=== PATIENT | male | born 1955 | race Two or more races ===

== ENCOUNTER → 2018-09-02 06:20 | Outpatient (CLI) | payer MEDICARE, MEDICAID, SELFPAY ==
[2018-09-02 09:17] LABS: Basophils # 0.2 K/mm3 (0-0.2); Basophils % 1.4 % (0.1-2.0); Eosinophils # 0.3 K/mm3 (0.0-0.4); Eosinophils % 2.5 % (0.1-12.0); Hematocrit 51.9 % (42.0-52.0); Hemoglobin 16.5 g/dL (14.1-18.0); Lymphocytes # 2.2 K/mm3 (0.7-4.5); Lymphocytes % 18.1 % (10-50); Mean Corpuscular HGB Conc 31.8 g/dL (31.8-35.4); Mean Corpuscular Hemoglobin 25.5 pg (27.0-31.2); Mean Platelet Volume 7.4 fl (7.4-10.4); Monocytes # 1.2 K/mm3 (0.1-1.0); Monocytes % 9.9 % (1.7-9.3); Neutrophils # 8.2 K/mm3 (1.8-7.8); Neutrophils % 68.1 % (37.0-80.0); Platelet Count 439 K/mm3 (142-424); Red Blood Count 6.48 M/mm3 (4.60-6.20); Red Cell Distribution Width 16.1 % (11.5-17.5)
[2018-09-02 10:13] LABS: Anion Gap 15.2 mEq/L (5-15); Blood Urea Nitrogen 25 mg/dL (7-18); Calcium 9.1 mg/dL (8.5-10.1); Carbon Dioxide 29 mmol/L (21.0-32.0); Chloride 95 mmol/L (98-107); Creatinine,Serum 1.18 mg/dL (0.70-1.30); Estimated Glomerular Filt Rate 62 ml/min (>60); GFR (African American) 75 ML/MIN (>60); Glucose 164 mg/dL (74-106); Potassium 5.2 mmoL/L (3.5-5.1); Sodium 134 mmol/L (136-145)
== END ==
PROVIDERS: Nurse Practitioner Family; PCP Family Medicine; Visit Provider Internal Medicine
DX: I11.0 Hypertensive heart disease with heart failure (principal); I25.10 Atherosclerotic heart disease of native coronary artery without angina pectoris; R60.0 Localized edema
CPT/HCPCS: 36415; 80048; 85025

== ENCOUNTER → 2020-11-23 10:29 | Outpatient (CLI) | payer MEDICARE, MEDICAID, SELFPAY ==
--- NOTE | 2020-11-23 | CA_ITS ---
APPROVED REPORT Exam: Pharmacologic Technologist: Valeria Uribe, Stress Nurse: VENTRICULAR PACED RHYTHM WITH UNDERLYING AFIB Ht: 5 ft 11 in Wt: 256 lbs BSA: 2.34 m2 HR: 60 bpm BP: 111/57 mmHg Medical History Medical History: HTN, Hyperlipidemia, Diabetic Medications: Aspirin,,,,, Gabapentin,,,,, Xanax,,,,, Carvedilol,,,,, Duoneb,,,,, PERCOCET,,,,, XaRELTO,,,,, Albuterol,,,,, TAMSALOSIN,,,,, Digoxin,,,,, Ibuprofen,,,,, Prednisone,,,,, Allergies: PENICILLIN Cardiac Risk Factors: HTN, Hyperlipidemia, Diabetes Stress Test Details Test: LEXISCAN HR Resting HR: 63 bpm Max Heart Rate (APMHR): 155.162722 bpm Max HR Achieved: 102 bpm Target HR (85% APMHR): 131.659708 bpm % of APMHR: 65.81 Recovery HR: 68 bpm BP Resting BP: 111/57 mmHg Max BP: 126/58 mmHg Recovery BP: 118.0/52.0 mmHg ECG Resting ECG: VENTRICULAR PACED RHYTHM WITH UNDERLYING AFIB Clinical Exercise duration: 04:01 min Highest Stage Achieved: Exercise capacity: 1.0 METs Stress ECG Conclusion PT HAD SPA, MALAISE, AND MILD STOMACH DISCOMFORT. NO CP. OCCASIONAL V ECTOPIC BEAT VS ABBERANTLY CONDUCTED BEAT. NO SIGNIFICANT ST CHANGES. UNREMARKABLE LEXISCAN STRESS. MYOVIEW IMAGES REPORTED SEPERATELY. Test Summary REST 07:01 . . 63 . 111/ 57 . . Stage 1 . . . . . . . Cardiolite injected Stage 1 01:00 . . 77 . . . . Stage 2 01:00 . . 66 . . . . Stage 3 01:00 . . 77 . 122/ 50 . . Stage 4 01:00 . . 63 . 126/ 58 . . Stage 4 01:01 . . 63 . 126/ 58 . Stop exercise at 04:01 RECOVERY 01:00 . . 71 . 107/ 51 . . RECOVERY 02:00 . . 68 . 118/ 52 . . RECOVERY 03:00 . . 71 . 110/ 52 . . RECOVERY 03:17 . . 70 . 110/ 52 . . Electronically signed by : Ruddy Potter, 11/24/2020 10:38:44
--- NOTE | 2020-11-23 10:29 | NM_ITS ---
APPROVED REPORT Exam: Nuclear Stress Test Indication: CAD, 2 STENTS, HTN, D.M., HYPERLIPIDEMIA, TOB USE, C.P., SOB, FATIGUE, SLEEP APNEA Patient Location: Outpatient Stress Tech: Tayler Encarnacion [place] Tech:Suzie Medrano, ARRT, RT (R)(N) Ht: 5 ft 10 in Wt: 256 lbs HR: 60 bpm BP: 111/57 mmHg BSA: 2.32 m2 BMI: 36.7 History: CAD, 2 STENTS, HTN, D.M., HYPERLIPIDEMIA, TOB USE, C.P., SOB, FATIGUE, SLEEP APNEA Procedure: Patient received a 0.4 mg of intravenous Lexiscan, resting heart rate 60 bpm, resting blood pressure 111/57 mmHg, with Lexiscan maximum heart rate achived was 99 bpm which is % of the maximum predicted heart rate and blood pressure was 122/50 mmHg. With Lexiscan, patient denied any complaint of chest pain. SOA, MALAISE Electrocardiogram Resting electrocardiogram showed sinus resting electrocardiogram showed underlying rhythm is A. fib intermittently paced ventricular beats were also seen. With Lexiscan there is less than 1.[address] segment depression noted from the baseline EKG. The EKG portion of the Lexiscan is nondiagnostic Cardiac Stress and Resting SPECT Images: Cardiac Stress and Resting SPECT images were obtained using technetium 99m Myoview 32.5 mCi stress and 10.53 mCi at rest. Gated SPECT analysis of segmental wall motion and calculation of ejection fraction also done. Prone images were also obtained. Cardiac stress and resting SPECT images show a fixed defect involving the inferior wall consistent with nontransmural myocardial scarring, without significant giovany-infarct ischemia, computer ejection fraction has 43% with moderate inferior wall hypokinesis, but ventricle is mildly enlarged with normal contractility. Conclusion: 1. The EKG portion of the Lexiscan is nondiagnostic. 2. Scintigraphic evidence of nontransmural myocardial scarring involving the inferior wall without significant giovany-infarct ischemia, computer ejection fraction 43% with segmental wall motion abnormality described above, right ventricle is mildly enlarged with normal contractility 3. Abnormal Lexiscan Myoview study. Electronically signed by : Ruddy Potter, 11/24/2020 10:49:36
== END ==
PROVIDERS: PCP Family Medicine; Visit Provider Nurse Practitioner Family
DX: R06.02 Shortness of breath; R07.89 Other chest pain; I25.10 Atherosclerotic heart disease of native coronary artery without angina pectoris; R94.31 Abnormal electrocardiogram [ECG] [EKG]; I11.0 Hypertensive heart disease with heart failure; E78.49 Other hyperlipidemia; N18.2 Chronic kidney disease, stage 2 (mild); G47.33 Obstructive sleep apnea (adult) (pediatric); Z95.0 Presence of cardiac pacemaker; Z72.0 Tobacco use
CPT/HCPCS: 78452; 93017; 93306; A9502; J2785

== ENCOUNTER → 2020-11-30 09:16 | Outpatient (CLI) | payer MEDICARE, MEDICAID, SELFPAY ==
--- NOTE | 2020-11-30 09:35 | CA_ITS ---
APPROVED REPORT EXAM: Comprehensive 2D, Doppler, and color-flow Echocardiogram Call Center Rn: Rosa Parry RVT Ht: 5 ft 11 in Wt: 256lbs BSA: 2.34 BP: 110/68 mmHg Indications: cp,pacer,a-fib,kinjal,cad,smoker,obesity,htn,hld 2D Dimensions LVOT 2.27 cm (M/F) 1.5-2.5 LA Volume 62.00 mL LA Volume Index 26.49 mL/m2 (M/F) 16-34 M-Mode Dimensions LA Diam 2.74 cm (1.9-4.0) LVDd 7.58 cm (3.5-5.7) Ao Diam 4.74 cm (2.0-3.7) LVDs 5.46 cm (3.5-5.7) IVSd 0.59 cm (0.6-1.1) PWd 1.14 cm (0.6-1.1) EF (Teich) 52.50% FS 28.00% EDV (Teich) 305.50 mL ESV (Teich) 145.00 mL LV Diastology MED E' 9.50 (< 7 cm/sec) LAT E' 16.50 (<10 cm/sec) Aortic Valve AO Peak GR. 5.10 mmHg Pulmonary Valve PV Peak Velocity 72.00 (50-150 cm/s) Tricuspid Valve TR P. Velocity 308.00 cm/s RAP Estimate 10.00 mmHg RVSP 47.80 mmHg Left Ventricle Left atrium is mildly enlarged, left ventricle is normal size, mild concentric left ventricular hypertrophy, visually estimated ejection fraction 50% with no regional wall motion abnormality, endocardial surfaces are very poorly visualized. Diastolic parameters are inconclusive. Right Ventricle Right atrium and right ventricle are mildly enlarged with normal contractility. Aortic Valve Aortic valve is minimally thickened and fibrosed, there is no aortic stenosis or aortic insufficiency. Mitral Valve Mitral valve is minimally thickened, there is mild mitral regurgitation. Tricuspid Valve Tricuspid grossly normal, there is mild tricuspid regurgitation, calculated right ventricular systolic pressure is 47 mmHg. Pulmonic Valve Pulmonic valve is poorly visualized. Great Vessels Aortic root is normal size. Pericardium No significant pericardial effusion noted. Conclusion 1. Technically difficult study because of the patient factors and poor acoustic windows. 2. Mild biatrial [place], normal left ventricular size, mild concentric left ventricular hypertrophy, visually estimated ejection fraction 50% with no regional wall motion abnormality, diastolic parameters are inconclusive. 3. Mildly enlarged right ventricle with normal contractility. 4. Mild mitral and tricuspid regurgitation, calculated right ventricular systolic pressure is 47 mmHg. 5. No significant pericardial effusion noted. Electronically signed by : Ruddy Potter, 12/01/2020 15:52:36
== END ==
PROVIDERS: PCP Family Medicine; Visit Provider Nurse Practitioner Family
DX: G47.33 Obstructive sleep apnea (adult) (pediatric); I11.0 Hypertensive heart disease with heart failure; N18.2 Chronic kidney disease, stage 2 (mild); Z95.0 Presence of cardiac pacemaker; R06.02 Shortness of breath; R07.89 Other chest pain; E78.49 Other hyperlipidemia; I48.20 Chronic atrial fibrillation, unspecified
CPT/HCPCS: 93306

== ENCOUNTER 2021-05-24 07:54 | Day surgery (SDC) | payer MEDICARE, MEDICAID, SELFPAY ==
[2021-05-24] VITALS (17 sets, daily range): BP systolic 107–164; BP diastolic 45–101; PULSE 85–103; RESP 18–20; O2SAT 93–99; BMI 35.6
--- NOTE | 2021-05-24 07:11 | IR_ITS ---
APPROVED REPORT Patient Location: Outpatient Lamination Spinner: JL Zuleta RT (R) PROCEDURES Catheter placement in the abdominal aorta Abdominal aortography Repositioning of the catheter in the abdominal Bilateral iliofemoral runoff INDICATION Abnormal EKTA, [place] claudication class IV-V Informed consent was obtained prior to the procedure. COMPLICATIONS NONE Estimated Blood Loss: LESS THAN 10 ML TECHNIQUE 1% lidocaine used to anesthetize the left femoral groin. The left femoral artery was accessed via the Seldinger technique. Using fluoroscopic guidance the JR4 catheter was advanced from the aorta into the right common iliac artery and then advanced into the right superficial femoral artery. There unilateral selective angiography with runoff to the foot was performed. Following this the catheter was pulled back into the right common iliac artery and angiography was performed. At the end of the procedure the patient was transferred to the postop holding area in stable condition for sheath removal. ANGIOGRAPHIC RESULTS Infrarenal abdominal aorta is normal Bilateral renal arteries is singular normal Bilateral common and internal iliac arteries are normal Bilateral external iliac arteries are normal Bilateral common femoral arteries are normal Bilateral profunda femoris arteries are normal Bilateral superficial femoral arteries have 40% nonflow limiting stenoses Bilateral popliteal arteries are widely patent with mild atheromatous plaque There is three-vessel runoff below the knees bilaterally IMPRESSION Peripheral artery disease as described above none of which is contributing to the lower extremity ulcer which almost certainly stems from venous insufficiency PLAN 1. Standard risk factor modification for PAD/CAD 2. Treatment of venous insufficiency Electronically signed by : Michael Landin MD 05/24/2021 11:19:18
[2021-05-24 09:12] LABS: Coronavirus 19, PCR Not Detected (NotDetected); Influenza A, PCR Not Detected (NotDetected); Influenza B, PCR Not Detected (NotDetected)
[2021-05-24 09:21] LABS: Basophils # 0.2 K/mm3 (0-0.2); Basophils % 1.6 % (0.1-2.0); Eosinophils # 0.2 K/mm3 (0.0-0.4); Hematocrit 47.7 % (42.0-52.0); Hemoglobin 15.9 g/dL (14.1-18.0); Lymphocytes # 1.2 K/mm3 (0.7-4.5); Lymphocytes % 11.9 % (10-50); Mean Corpuscular HGB Conc 33.3 g/dL (31.8-35.4); Mean Corpuscular Hemoglobin 27.6 pg (27.0-31.2); Mean Corpuscular Volume 82.8 fl (80-94); Mean Platelet Volume 8.7 fl (7.4-10.4); Monocytes # 0.8 K/mm3 (0.1-1.0); Monocytes % 7.4 % (1.7-9.3); Neutrophils # 7.9 K/mm3 (1.8-7.8); Neutrophils % 77.1 % (37.0-80.0); Platelet Count 483 K/mm3 (142-424); Red Blood Count 5.77 M/mm3 (4.60-6.20); Red Cell Distribution Width 15.7 % (11.5-17.5); White Blood Count 10.3 K/mm3 (4.8-10.8)
[2021-05-24 09:43] LABS: Anion Gap 10.3 mEq/L (5-15); Blood Urea Nitrogen 27 mg/dl (9-20); Carbon Dioxide 30 mmol/L (22.0-30.0); Chloride 100 mmol/L (98-107); Creatinine Clearance Estimated 119 mL/min (50-200); Estimated Glomerular Filt Rate 113 ml/min (>60); GFR (African American) 137 ML/MIN (>60); Glucose 200 mg/dl (74-100); Potassium 4.3 mmoL/L (3.5-5.1); Sodium 136 mmol/L (136-145)
== END 2021-05-24 14:27 | disposition home or self-care (01) ==
LOC: CATHLAB 07:56
PROVIDERS: PCP Family Medicine; Visit Provider Internal Medicine
DX: I73.9 Peripheral vascular disease, unspecified (principal); I13.0 Hypertensive heart and chronic kidney disease with heart failure and stage 1 through stage 4 chronic kidney disease, or unspecified chronic kidney disease; E78.2 Mixed hyperlipidemia; G47.33 Obstructive sleep apnea (adult) (pediatric); I25.10 Atherosclerotic heart disease of native coronary artery without angina pectoris; N18.2 Chronic kidney disease, stage 2 (mild); R68.89 Other general symptoms and signs; Z95.0 Presence of cardiac pacemaker; I50.32 Chronic diastolic (congestive) heart failure; E87.2 Acidosis; Z20.822 Contact with and (suspected) exposure to COVID-19
CPT/HCPCS: 36247; 75625; 75716; 80048; 85025; 99152; C1725; C1769; C1894; C9803; J1644; Q9966; U0003; U0005

== ENCOUNTER → 2021-09-04 15:16 | Outpatient (CLI) | payer MEDICARE, MEDICAID, SELFPAY ==
--- NOTE | 2021-09-04 15:24 | XR_ITS ---
FINAL REPORT CLINICAL HISTORY: KIDNEY STONE, c/o lt side pain h/o stones FINDINGS: A single view of the abdomen was obtained. There is a nonobstructive bowel gas pattern. There are no abnormally dilated loops of small bowel. There is a moderate amount of retained stool. There is a 5 mm presumed stone in the lower pole of the left kidney. There are moderate in severe degenerative changes of the L-spine. A gastric lap band is present. IMPRESSION: Nonobstructive bowel gas pattern. Moderate amount of retained stool. Presumed left renal stone. Reviewed, Interpreted and Dictated by Tommy Trinidad III, MD Transcribed by Leta Allred Authenticated by Tommy Trinidad III, MD on 09/04/2021 04:39:11 PM [facility]
[2021-09-04 17:56] LABS: Prostate Specific Ag Screen 0.1 ng/ml (0.0-4.0)
== END ==
PROVIDERS: PCP Family Medicine; Visit Provider Urology
DX: N20.0 Calculus of kidney (principal); Z12.5 Encounter for screening for malignant neoplasm of prostate
CPT/HCPCS: 74018; G0103

== ENCOUNTER 2021-10-20 11:28 | Day surgery (SDC) | payer MEDICARE, MEDICAID, SELFPAY ==
[2021-10-18 10:18] VITALS: BMI 39.0
[2021-10-20 11:49] VITALS: BP 104/60; PULSE 88; RESP 18; TEMP 36.5; O2SAT 97
[2021-10-20 12:35] VITALS: BP 128/64; PULSE 86; RESP 16; TEMP 36.2; O2SAT 96
[2021-10-20 12:45] VITALS: BP 128/64; PULSE 86; RESP 16; TEMP 36.2; O2SAT 96
--- NOTE | 2021-10-20 14:11 | HMH.OPNOTE ---
Date of procedure: 10/20/21 Pre-op Diagnosis:: Lower urinary tract symptoms due to BPH Post-op Diagnosis:: Same Procedure performed:: Cystoscopy Surgeon:: Kirby Church MD Anesthesia: local Estimated blood loss (mL): 0 Clinical Note:: 66-year-old white male with multiple medical problems including lower urinary tract symptoms presents for urologic evaluation. He has seen some relief with tamsulosin. Operative findings:: Patient with bilobar hyperplasia. No evidence of a median lobe. No significant bladder outlet obstruction signs in his bladder. Operative note:: Patient taken to the operating suite after informed consent was obtained. On the stretcher he was prepped and draped in the standard surgical fashion and 2% lidocaine placed into the urethra and clamped. After 5 minutes the clamp removed and the flexible scope placed into the urethral meatus. Scope passed to the prostatic urethra which showed bilobar hyperplasia. The bladder was entered and examined in a systematic fashion. There was some mild trabeculation present but no cellules or diverticula or stones. The ureteral orifices were well away from the bladder neck. The scope was retroflexed showing no evidence of a median lobe. The scope then brought back to the prostatic urethra and it was measured at 2-1/2 cm in length. Again there was some bilobar hyperplasia. No evidence of urethral strictures. Scope removed. We discussed the findings with the patient. He does have multiple medical problems and is on Xarelto. He is not a great surgical candidate but we did discuss that if his symptoms warrant he is a good UroLift candidate. We decided to continue tamsulosin for now and he will return to the office in 1 month for further discussion. Condition: stable Disposition: same day Specimens:: None Complications:: None
[2022-04-05 10:59] LABS: POC Glucose,Bedside 202 (70-110)
== END 2021-10-20 12:45 | disposition home or self-care (01) ==
LOC: OUTP 11:29
PROVIDERS: PCP Family Medicine; Visit Provider Urology
DX: N40.1 Benign prostatic hyperplasia with lower urinary tract symptoms (principal); N52.2 Drug-induced erectile dysfunction; Z87.442 Personal history of urinary calculi
CPT/HCPCS: 52000; 82962

== ENCOUNTER → 2021-11-20 14:20 | Outpatient (CLI) | payer MEDICARE, MEDICAID, SELFPAY ==
[2021-11-20 15:33] LABS: Alanine Aminotransferase 33 U/L (12-78); Albumin Level 3.8 g/dl (3.5-5.0); Alkaline Phosphatase 41 U/L (38-126); Anion Gap 11.4 mEq/L (5-15); Aspartate Amino Transferase 29 U/L (17-59); Bilirubin,Indirect 0.4 mg/dL (0.0-0.9); Bilirubin,Total 0.4 mg/dl (0.2-1.3); Bilirubin,Unconjugated 0.6 mg/dL (0.0-1.1); Blood Urea Nitrogen 26 mg/dl (9-20); Calcium 8.8 mg/dl (8.4-10.2); Carbon Dioxide 27 mmol/L (22.0-30.0); Chloride 99 mmol/L (98-107); Chol/HDL Ratio 4.7 (1-3.5); Cholesterol 107 mg/dl (140-200); Estimated Glomerular Filt Rate 113 ml/min (>60); GFR (African American) 137 ML/MIN (>60); Glucose 221 mg/dl (74-100); HDL Cholesterol 23 mg/dl (40-60); Potassium 4.4 mmoL/L (3.5-5.1); Sodium 133 mmol/L (136-145); Triglycerides 267 mg/dl (30-150); VLDL Cholesterol 53 mg/dL (0-40)
[2021-11-20 15:44] LABS: Direct LDL Cholesterol 49.03 mg/dL (100-129)
[2021-11-20 15:47] LABS: Free T4 (Free Thyroxine) 1.27 ng/dl (0.78-2.19)
[2021-11-20 16:02] LABS: Thyroid Stimulating Hormone 1.45 uIU/mL (0.465-4.68)
== END ==
PROVIDERS: Visit Provider Physician Assistant
DX: G47.33 Obstructive sleep apnea (adult) (pediatric) (principal); I11.0 Hypertensive heart disease with heart failure; I25.10 Atherosclerotic heart disease of native coronary artery without angina pectoris; N18.2 Chronic kidney disease, stage 2 (mild); N52.2 Drug-induced erectile dysfunction; R06.02 Shortness of breath; R68.89 Other general symptoms and signs; I48.20 Chronic atrial fibrillation, unspecified
CPT/HCPCS: 36415; 80048; 80061; 80076; 83735; 84439; 84443

== ENCOUNTER → 2021-12-20 09:25 | Outpatient (CLI) | payer MEDICARE, MEDICAID, SELFPAY ==
[2021-12-20 09:50] LABS: Basophils # 0.1 K/mm3 (0-0.2); Basophils % 1.4 % (0.1-2.0); Eosinophils # 0.2 K/mm3 (0.0-0.4); Eosinophils % 2.3 % (0.1-12.0); Hematocrit 48.6 % (42.0-52.0); Hemoglobin 15.9 g/dL (14.1-18.0); Lymphocytes # 1.5 K/mm3 (0.7-4.5); Lymphocytes % 15.9 % (10-50); Mean Corpuscular HGB Conc 32.6 g/dL (31.8-35.4); Mean Corpuscular Hemoglobin 27.4 pg (27.0-31.2); Mean Corpuscular Volume 83.9 fl (80-94); Mean Platelet Volume 8.8 fl (7.4-10.4); Monocytes # 0.6 K/mm3 (0.1-1.0); Monocytes % 6.6 % (1.7-9.3); Neutrophils % 73.8 % (37.0-80.0); Platelet Count 424 K/mm3 (142-424); Red Cell Distribution Width 16.5 % (11.5-17.5); White Blood Count 9.4 K/mm3 (4.8-10.8)
[2021-12-20 10:13] LABS: Chloride 97 mmol/L (98-107); Potassium 4.4 mmoL/L (3.5-5.1); Sodium 136 mmol/L (136-145)
[2021-12-20 10:16] LABS: Anion Gap 12.4 mEq/L (5-15); Blood Urea Nitrogen 28 mg/dl (9-20); Carbon Dioxide 31 mmol/L (22.0-30.0); Estimated Glomerular Filt Rate 84 ml/min (>60); GFR (African American) 102 ML/MIN (>60)
[2021-12-20 10:17] LABS: Calcium 8.9 mg/dl (8.4-10.2); Glucose 296 mg/dl (74-100)
== END ==
PROVIDERS: Physician Assistant; PCP Family Medicine; Visit Provider Internal Medicine
DX: I20.8 Other forms of angina pectoris; R06.02 Shortness of breath; R94.39 Abnormal result of other cardiovascular function study; Z95.0 Presence of cardiac pacemaker; Z01.812 Encounter for preprocedural laboratory examination; Z20.822 Contact with and (suspected) exposure to COVID-19
CPT/HCPCS: 36415; 80048; 85025; C9803; U0003; U0005

== ENCOUNTER 2021-12-21 07:24 | Day surgery (SDC) | payer MEDICARE, MEDICAID, SELFPAY ==
[2021-12-21] VITALS (11 sets, daily range): BP systolic 121–160; BP diastolic 63–102; PULSE 72–100; RESP 18–20; O2SAT 91–100; BMI 23.0; BMI 38.5
--- NOTE | 2021-12-21 | IR_ITS ---
APPROVED REPORT Patient Location: Outpatient Enterprise Account Executive: JL Vega RT (R) PROCEDURES Left heart catheterization Left ventriculogram Selective coronary angiogram INDICATION Known coronary artery disease, Angina pectoris, Abnormal Myoview, Informed consent was obtained prior to the procedure. COMPLICATIONS NONE Estimated Blood Loss: LESS THAN 10 ML TECHNIQUE One percent lidocaine used to anesthetize the right anterior aspect of the wrist. The right radial artery was accessed via the Seldinger technique. A 6 Turkmen sheath was placed in the right radial artery. 2.5 mg of verapamil, 800 mcg of nitroglycerin, 1mg Lidocaine and 5000 U Heparin were given through the arterial sheath. The papa catheter was also used to perform left heart catheterization, left ventriculogram and selective coronary angiogram. At the end of the procedure the sheath was removed good hemostasis was achieved using Traclet band, patient was transferred to the postop holding area in stable condition. ANGIOGRAPHIC RESULTS The left main artery Normal The left anterior descending artery Initially had VANCE II flow which improved with subsequent injections. Approximately the vessel is widely patent with 10% luminal irregularities followed by mid vessel 20% luminal irregularities followed by a stent in the mid segment which is widely patent with minimal in-stent restenosis and excellent distal transitioning. The circumflex artery Large dominant widely patent initially with VANCE II flow which improved with subsequent injections. The vessel is free of disease The right coronary artery Nondominant with mild luminal irregularities The CARY ventriculogram reveals Ejection fraction 45% The left ventricular end-diastolic pressure 25 mmHg IMPRESSION Slow flow down the LAD and circumflex artery consistent with endothelial dysfunction Patent mid LAD stent Ejection fraction 45% Moderately elevated LVEDP consistent with diastolic dysfunction PLAN 1. Treatment of endothelial dysfunction and diastolic dysfunction 2. Medical management for coronary artery disease Electronically signed by : Michael Landin MD 12/21/2021 10:30:44
== END 2021-12-21 13:38 | disposition home or self-care (01) ==
LOC: CATHLAB 07:26
PROVIDERS: PCP Family Medicine; Visit Provider Internal Medicine
DX: I25.118 Atherosclerotic heart disease of native coronary artery with other forms of angina pectoris (principal); T82.855A Stenosis of coronary artery stent, initial encounter; Z79.899 Other long term (current) drug therapy; Z79.01 Long term (current) use of anticoagulants; I48.20 Chronic atrial fibrillation, unspecified; N18.2 Chronic kidney disease, stage 2 (mild); I50.32 Chronic diastolic (congestive) heart failure; Z95.0 Presence of cardiac pacemaker; Y83.1 Surgical operation with implant of artificial internal device as the cause of abnormal reaction of the patient, or of later complication, without mention of misadventure at the time of the procedure; I12.9 Hypertensive chronic kidney disease with stage 1 through stage 4 chronic kidney disease, or unspecified chronic kidney disease
CPT/HCPCS: 93458; 99152; C1725; C1760; C1769; J1644; Q9967

== ENCOUNTER → 2022-08-01 13:01 | Outpatient (CLI) | payer MEDICARE, MEDICAID, SELFPAY ==
--- NOTE | 2022-08-01 13:02 | CA_ITS ---
APPROVED REPORT EXAM: Comprehensive 2D, Doppler, and color-flow Echocardiogram [facility] Aides Teacher: THOMAS Aragon, RVS Ht: 5 ft 11 in Wt: 302lbs BSA: 2.51 BP: 133/57 mmHg Indications: COPD, Obesity, SOA, CP, Pacer, A-fib, CKD, PVD Echo Enhancing Agent Comments: Poor scoustic windows due to patient factors 2D Dimensions Aortic Root 3.67 cm M: 3.1 - 3.7 LA Volume 74.80 mL Left Atrium 4.57 cm M: 3.0 - 4.0 LA Volume Index 29.516262 mL/m2 (M/F) 16-34 LVOT 2.13 cm (M/F) 1.5-2.5 M-Mode Dimensions RVDd 3.52 cm (0.9-2.6) LA Diam 4.52 cm (1.9-4.0) LVDd 5.30 cm (3.5-5.7) Ao Diam 3.39 cm (2.0-3.7) LVDs 3.52 cm (3.5-5.7) IVSd 0.89 cm (0.6-1.1) PWd 0.98 cm (0.6-1.1) EF (Teich) 61.90% EPSs 0.47 cm FS 33.60% EDV (Teich) 135.30 mL TAPSE 3.20 (<1.7) ESV (Teich) 51.60 mL LV Diastology E Decel Time 163.00 (160-240 msec) E/A Ratio 3.79 MED E' 8.00 (< 7 cm/sec) MED A' 4.80 cm/s E'/MED E' Ratio 9.19 (>14) LAT E' 8.10 (<10 cm/sec) LAT A' 2.30 cm/s E/LAT E' Ratio 9.07 (>14) Aortic Valve LVOT Max 83.00 (70-110 cm/s) LVOT VTI 15.14 cm AoV Peak [place]. 108.00 (50-130 cm/s) AO Peak GR. 4.70 mmHg AO Mean GR. 2.40 (<5 mmHg) AO VTI 18.26 (18-25 cm) RYAN (VTI) 2.95 (2.5-4.5 cm2) Mitral Valve MV A Velocity 19.00 (40-130 cm/s) E/A Ratio 3.79 MV Decel. Time 163.00 (160-240 ms) MV PHT 63.00 ms Pulmonary Valve PV Peak Velocity 90.00 (50-150 cm/s) Tricuspid Valve TR P. Velocity 221.00 cm/s RAP Estimate 10.00 mmHg RVSP 29.60 mmHg Left Ventricle Technically difficult study because of the patient factors and poor acoustic windows. Left atrium is mildly enlarged, left ventricle is normal size mild concentric left ventricular hypertrophy, estimated ejection fraction 45% with no obvious regional wall motion abnormality. Diastolic parameters are inconclusive. Right Ventricle Right atrium and right ventricle are normal size and contractility, pacemaker lead seen in right ventricle. Aortic Valve Aortic valve is minimally thickened and calcified without aortic stenosis or aortic insufficiency. Mitral Valve Mitral valve grossly normal, there is trace mitral regurgitation. Tricuspid Valve Tricuspid valve grossly normal, there is trace tricuspid regurgitation, tricuspid regurgitation jet velocity is inadequate for calculation of the right ventricular systolic pressure. Pulmonic Valve Pulmonic valve is poorly visualized. Great Vessels Aortic root is normal size. Inferior vena cava is poorly visualized. Pericardium No significant pericardial effusion noted. Conclusion 1. Technically difficult study because of the patient factors and poor acoustic windows. 2. Mildly enlarged left atrium, normal left ventricular size mild concentric left ventricular hypertrophy, estimated ejection fraction 45% with no regional wall motion abnormality, diastolic parameters are inconclusive. 3. Trace mitral and tricuspid regurgitation. 4. No significant pericardial effusion. 5. Inferior vena cava is poorly visualized. Electronically signed by : Ruddy Potter MD 08/02/2022 05:53:01
[2022-08-01 14:09] LABS: Basophils # 0.2 K/mm3 (0-0.2); Basophils % 2.4 % (0.1-2.0); Eosinophils # 0.2 K/mm3 (0.0-0.4); Eosinophils % 2.2 % (0.1-12.0); Hematocrit 47.7 % (42.0-52.0); Hemoglobin 15.9 g/dL (14.1-18.0); Lymphocytes # 1.1 K/mm3 (0.7-4.5); Lymphocytes % 13.9 % (10-50); Mean Corpuscular HGB Conc 33.4 g/dL (31.8-35.4); Mean Corpuscular Volume 83.8 fl (80-94); Mean Platelet Volume 8.5 fl (7.4-10.4); Monocytes # 0.6 K/mm3 (0.1-1.0); Monocytes % 7.1 % (1.7-9.3); Neutrophils # 6.1 K/mm3 (1.8-7.8); Neutrophils % 74.5 % (37.0-80.0); Platelet Count 355 K/mm3 (142-424); White Blood Count 8.2 K/mm3 (4.8-10.8)
[2022-08-01 15:02] LABS: Chloride 101 mmol/L (98-107); Potassium 4.3 mmoL/L (3.5-5.1); Sodium 136 mmol/L (136-145)
[2022-08-01 15:04] LABS: Bilirubin,Unconjugated 0.5 mg/dL (0.0-1.1); Blood Urea Nitrogen 36 mg/dl (9-20); Estimated Glomerular Filt Rate 96 ml/min (>60); GFR (African American) 117 ML/MIN (>60)
[2022-08-01 15:05] LABS: Alanine Aminotransferase 38 U/L (12-78); Albumin Level 3.9 g/dl (3.5-5.0); Alkaline Phosphatase 42 U/L (38-126); Anion Gap 12.3 mEq/L (5-15); Aspartate Amino Transferase 28 U/L (17-59); Bilirubin,Direct 0.3 mg/dl (0.0-0.4); Bilirubin,Indirect 0.4 mg/dL (0.0-0.9); Bilirubin,Total 0.7 mg/dl (0.2-1.3); Calcium 8.3 mg/dl (8.4-10.2); Carbon Dioxide 27 mmol/L (22.0-30.0); Cholesterol 130 mg/dl (140-200); Glucose 208 mg/dl (74-100); Magnesium 2.2 mg/dl (1.6-2.3); Total Protein,Serum 6.2 g/dl (6.3-8.2)
[2022-08-01 15:06] LABS: HDL Cholesterol 26 mg/dl (40-60)
[2022-08-01 15:16] LABS: Direct LDL Cholesterol 59.31 mg/dL (100-129); Triglycerides 431 mg/dl (30-150)
[2022-08-01 15:22] LABS: Free T4 (Free Thyroxine) 1.43 ng/dl (0.78-2.19)
[2022-08-01 15:36] LABS: Thyroid Stimulating Hormone 1.28 uIU/mL (0.465-4.68)
[2022-08-03 09:44] LABS: Testosterone,Total 197 ng/dL (264-916)
[2022-08-07 10:12] LABS: Testosterone,Free 1.1 pg/mL (6.6-18.1)
== END ==
PROVIDERS: PCP Family Medicine; Visit Provider Internal Medicine
DX: E78.2 Mixed hyperlipidemia (principal); I11.0 Hypertensive heart disease with heart failure; I73.9 Peripheral vascular disease, unspecified; J43.8 Other emphysema; N18.2 Chronic kidney disease, stage 2 (mild); R06.00 Dyspnea, unspecified; R06.01 Orthopnea; R06.02 Shortness of breath; R07.89 Other chest pain; R60.0 Localized edema; Z95.0 Presence of cardiac pacemaker; N52.2 Drug-induced erectile dysfunction; I48.20 Chronic atrial fibrillation, unspecified
CPT/HCPCS: 36415; 80048; 80061; 80076; 83735; 84402; 84403; 84439; 84443; 85025; 93306

== ENCOUNTER 2022-12-09 16:54 | Observation (INO) | payer MEDICARE, MEDICAID, SELFPAY ==
[2022-12-09 17:07] VITALS: BP 132/77; PULSE 91; RESP 18; TEMP 36.2; O2SAT 97; BMI 39.4
[2022-12-09 17:22] LABS: Coronavirus 19, PCR Not Detected (NotDetected); Influenza A, PCR Not Detected (NotDetected); Influenza B, PCR Not Detected (NotDetected)
--- NOTE | 2022-12-09 17:25 | EXP.HP ---
History of Present Illness *Admission Date: 12/09/22 *Reason for visit:: chest pain *History of present illness: 67-year-old male with known history of coronary artery disease, heart failure with reduced ejection fraction, pacemaker, A-fib. Presented to [facility] with onset of chest pain earlier today. States he developed some chest pain that radiated to his left neck. This was followed 30 to 60 minutes later by an episode of emesis. Denies any shortness of breath, confusion, syncope. Took 3 doses of nitroglycerin at home before going to the ER. On arrival to the ER his chest pain was improving. EKG obtained that did not show any significant ischemic changes per report. Serial troponins with fifth GEN high-sensitivity showed an 8 on presentation to [facility] followed by 7 2 hours later. Given multiple risk factors and concerning features of his chest pain, [facility] contacted [facility] for transfer and further management. Patient sees cardiology at [facility]. He requested to be transferred here if he needed to be admitted. Patient excepted for monitoring overnight on telemetry and further evaluation by cardiology in the morning. On arrival to [facility], he states that his chest pain is resolved at this time. Has no shortness of breath. He wears oxygen at night, 2 L, for baseline nocturnal hypoxia. Additionally complains of sniffing and pain from back injuries. Gets around with a wheelchair most of the time. Appears to be in his stable baseline health. Labs obtained including troponin, echo ordered for the morning. [facility] Disclaimer: The information contained in this section may have been updated after the patient was seen, as this information can be updated by other users. Medical History Abnormal ankle brachial index (EKTA) Abnormal cardiovascular stress test Atrial fibrillation Atypical angina Cellulitis Chest pain Chiari malformation Claudication LV dysfunction Polycythemia Syncope Surgical History History of colonoscopy History of gastric surgery History of permanent cardiac pacemaker placement Social History Smoking Status: Former smoker alcohol intake: current substance use type: denies use current occupational status: retired Travel in the last 8 weeks: Inside the [place] household members: spouse housing: house current occupational exposures/hazards: No caffeine: Yes Meds Home Medications and Allergies Home Medications Medication Instructions Recorded Confirmed Type albuterol sulfate 90 mcg/actuation 2 puff inhalation Q6H COPD 10/17/17 11/06/22 History aerosol inhaler (Ventolin HFA) dexlansoprazole 60 mg 60 mg PO DAILY . 10/17/17 11/06/22 History capsule,biphase delayed release (Dexilant) diphenhydramine HCl 25 mg tablet 25 mg PO Q4-6H PRN allergies 10/17/17 11/06/22 History (Benadryl Allergy) gabapentin 800 mg tablet 800 mg PO TID nerve pain 10/17/17 11/06/22 History glimepiride 2 mg tablet 4 mg PO BID Diabetes 10/17/17 11/06/22 History ibuprofen 800 mg tablet 800 mg PO TID Pain 10/17/17 11/06/22 History ipratropium 0.5 mg-albuterol 3 mg 3 ml inhalation Q4-6H PRN copd 10/17/17 11/06/22 History (2.5 mg base)/3 mL nebulization soln meclizine 25 mg tablet 25 mg PO TID . 10/17/17 11/06/22 History ondansetron HCl 4 mg tablet 4 mg PO Q4H Nausea & vomiting 10/17/17 11/06/22 History (Zofran) oxycodone-acetaminophen 10 mg-325 1 tab PO Q4-6H PRN pain 10/17/17 11/06/22 History mg tablet (Percocet) roflumilast 500 mcg tablet 500 mcg PO DAILY . 10/17/17 11/06/22 History (Daliresp) tamsulosin 0.4 mg capsule (Flomax) 0.4 mg PO DAILY bph 10/17/17 11/06/22 History tiotropium 2.5 mcg-olodaterol 2.5 2 puff inhalation Q24H COPD 10/17/17
[2022-12-09 17:49] LABS: Basophils # 0.1 K/mm3 (0-0.2); Basophils % 0.9 % (0.1-2.0); Eosinophils # 0.2 K/mm3 (0.0-0.4); Eosinophils % 2.6 % (0.1-12.0); Hemoglobin 15.5 g/dL (14.1-18.0); Lymphocytes # 1.2 K/mm3 (0.7-4.5); Lymphocytes % 14.7 % (10-50); Mean Corpuscular HGB Conc 31.6 g/dL (31.8-35.4); Mean Corpuscular Hemoglobin 26.2 pg (27.0-31.2); Mean Corpuscular Volume 82.8 fl (80-94); Mean Platelet Volume 8.2 fl (7.4-10.4); Monocytes # 0.6 K/mm3 (0.1-1.0); Monocytes % 7.5 % (1.7-9.3); Neutrophils # 5.9 K/mm3 (1.8-7.8); Neutrophils % 74.3 % (37.0-80.0); Platelet Count 418 K/mm3 (142-424); Red Blood Count 5.92 M/mm3 (4.60-6.20); Red Cell Distribution Width 16.7 % (11.5-17.5)
[2022-12-09 17:53] LABS: Alanine Aminotransferase 38 U/L (12-78); Albumin Level 4.1 g/dl (3.5-5.0); Albumin/Globulin Ratio 1.2 (1.1-1.8); Alkaline Phosphatase 56 U/L (38-126); Aspartate Amino Transferase 33 U/L (17-59); Bilirubin,Total 0.6 mg/dl (0.2-1.3); Blood Urea Nitrogen 23 mg/dl (9-20); Calcium 8.2 mg/dl (8.4-10.2); Carbon Dioxide 26 mmol/L (22.0-30.0); Chloride 98 mmol/L (98-107); Creatinine Clearance Estimated 130 mL/min (50-200); Estimated Glomerular Filt Rate 84 ml/min (>60); GFR (African American) 102 ML/MIN (>60); Globulin 3.4 g/dL (1.3-3.2); Glucose 248 mg/dl (74-100); Sodium 137 mmol/L (136-145); Total Protein,Serum 7.5 g/dl (6.3-8.2)
[2022-12-09 17:54] LABS: Hemoglobin A1C 7.4 % (4.0-6.0)
[2022-12-09 18:14] LABS: Troponin I < 0.01 ng/ml (0.00-0.034)
[2022-12-09 18:24] LABS: Thyroid Stimulating Hormone 1.51 uIU/mL (0.465-4.68)
[2022-12-09 18:59] LABS: POC Glucose,Bedside 276 (70-110)
[2022-12-09 19:46] VITALS: PULSE 99
[2022-12-09 19:47] VITALS: BP 109/54; PULSE 99; RESP 18; TEMP 36.6; O2SAT 95
[2022-12-09 20:00] VITALS: BP 109/54
[2022-12-09 20:14] LABS: POC Glucose,Bedside 307 (70-110)
[2022-12-09 20:50] VITALS: PULSE 92
[2022-12-09 23:55] VITALS: BP 117/59; PULSE 81; RESP 18; TEMP 36.6; O2SAT 95
[2022-12-10] VITALS (8 sets, daily range): BP systolic 110–120; BP diastolic 62–76; PULSE 66–90; RESP 15–18; TEMP 36.7–36.8; O2SAT 94–96; BMI 33.3
[2022-12-10 05:44] LABS: POC Glucose,Bedside 145 (70-110)
[2022-12-10 06:29] LABS: Basophils # 0.1 K/mm3 (0-0.2); Basophils % 1.1 % (0.1-2.0); Eosinophils # 0.2 K/mm3 (0.0-0.4); Eosinophils % 2.4 % (0.1-12.0); Hematocrit 45.7 % (42.0-52.0); Hemoglobin 14.7 g/dL (14.1-18.0); Lymphocytes # 1.5 K/mm3 (0.7-4.5); Lymphocytes % 20.4 % (10-50); Mean Corpuscular HGB Conc 32.1 g/dL (31.8-35.4); Mean Corpuscular Hemoglobin 26.6 pg (27.0-31.2); Mean Corpuscular Volume 82.9 fl (80-94); Mean Platelet Volume 8.8 fl (7.4-10.4); Monocytes # 0.6 K/mm3 (0.1-1.0); Monocytes % 8.5 % (1.7-9.3); Neutrophils % 67.6 % (37.0-80.0); Platelet Count 362 K/mm3 (142-424); Red Blood Count 5.52 M/mm3 (4.60-6.20); Red Cell Distribution Width 16.8 % (11.5-17.5); White Blood Count 7.4 K/mm3 (4.8-10.8)
[2022-12-10 06:34] LABS: Chloride 100 mmol/L (98-107); Potassium 3.8 mmoL/L (3.5-5.1); Sodium 137 mmol/L (136-145)
[2022-12-10 06:36] LABS: Alanine Aminotransferase 31 U/L (12-78); Aspartate Amino Transferase 28 U/L (17-59); Blood Urea Nitrogen 25 mg/dl (9-20); Creatinine Clearance Estimated 110 mL/min (50-200); Estimated Glomerular Filt Rate 96 ml/min (>60); GFR (African American) 117 ML/MIN (>60)
[2022-12-10 06:37] LABS: Albumin Level 3.4 g/dl (3.5-5.0); Albumin/Globulin Ratio 1.1 (1.1-1.8); Alkaline Phosphatase 46 U/L (38-126); Anion Gap 11.8 mEq/L (5-15); Bilirubin,Total 0.4 mg/dl (0.2-1.3); Calcium 8.2 mg/dl (8.4-10.2); Carbon Dioxide 29 mmol/L (22.0-30.0); Chol/HDL Ratio 6.3 (1-3.5); Cholesterol 120 mg/dl (140-200); Glucose 147 mg/dl (74-100); HDL Cholesterol 19 mg/dl (40-60); Total Protein,Serum 6.4 g/dl (6.3-8.2); Triglycerides 306 mg/dl (30-150); VLDL Cholesterol 61 mg/dL (0-40)
[2022-12-10 06:48] LABS: Direct LDL Cholesterol 62.67 mg/dL (100-129)
--- NOTE | 2022-12-10 10:00 | HMH.PHAINT1 ---
Pharmacy Intervention Comments: Home medication list verified through list from outside pharmacy.
--- NOTE | 2022-12-10 11:24 | EXP.CARD.CON ---
History of Present Illness History of Present Illness Consult date: 12/10/22 Requesting physician: Clinton Lara Consult reason: chest pain Chief complaint: chest pain, heartburn Additional Medical History:: 1. CAD [facility]. [facility], 12/2021, endothelial dysfunction with slow flow down LAD and circumflex. Patent mid LAD stent. EF 45%. LVEDP 25 mmHg 2. Atrial fibrillation, chronic A. Anticoagulation with Xarelto 3. Pulmonary hypertension 4. PAD, mild, with venous insufficiency. 05/24/[address] 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 Diabetes mellitus type 2 8. Obesity with history of laparoscopic banding A. Now with dysphagia, 12/2022 9. Hypertension A. Echocardiogram, 08/02/2022, difficult study but mildly enlarged LA, normal LV size with mild concentric LVH, EF 45% with no regional WMA. Diastolic parameters inconclusive. Trace MR/TR. 10. HFrEF with EF 45% by echo, 08/01/2022 11. Erectile dysfunction 12. Low testosterone History of present illness: 67-year-old male with known history of coronary artery disease, heart failure with reduced ejection fraction, pacemaker, A-fib.? Presented to [facility] with onset of chest pain earlier today.? States he developed some chest pain that radiated to his left neck.? This was followed 30 to 60 minutes later by an episode of emesis.? Denies any shortness of breath, confusion, syncope.? Took 3 doses of nitroglycerin at home before going to the ER.? On arrival to the ER his chest pain was improving.? EKG obtained that did not show any significant ischemic changes per report.? Serial troponins with fifth GEN high-sensitivity showed an 8 on presentation to [facility] followed by 7 2 hours later.? Given multiple risk factors and concerning features of his chest pain, [facility] contacted for transfer and further management.? Patient sees cardiology at .? He requested to be transferred here if he needed to be admitted.? Patient excepted for monitoring overnight on telemetry and further evaluation by cardiology in the morning. On arrival to , he states that his chest pain is resolved at this time.? Has no shortness of breath.? He wears oxygen at night, 2 L, for baseline nocturnal hypoxia.? Additionally complains of sniffing and pain from back injuries.? Gets around with a wheelchair most of the time.? Appears to be in his stable baseline health.? Labs obtained including troponin, echo ordered for the morning. The above per Dr. Lara Patient states chest discomfort is substernal and seems to be associated with heartburn type symptoms. Upon further evaluation he has had episodes of dysphagia and feeling as if his food is hung up in his throat. He has a history of laparoscopic banding and I recommend he return to his infection control rn for further evaluation or we can schedule evaluation here if needed. Troponins this admission have returned normal. Recent heart cath last year in December showed patent arteries with endothelial dysfunction. [facility] Disclaimer: The information contained in this section may have been updated after the patient was seen, as this information can be updated by other users. Medical History Abnormal ankle brachial index (EKTA) Abnormal cardiovascular stress test Atrial fibrillation Atypical angina Cellulitis Chest pain Chiari malformation Claudication LV dysfunction Polycythemia Syncope Surgical History History of colonoscopy History of gastric surgery History of permanent cardiac pacemaker placement Social History Smoking Status: Former smoker alcohol intake: current substance use type: denies use current occupational status: retired Travel in
[2022-12-10 11:47] LABS: POC Glucose,Bedside 320 (70-110)
--- NOTE | 2022-12-10 12:41 | EXP.DC.SUM ---
General Admission date:: 12/09/22 Discharge date: 12/10/22 HPI HPI HPI: 67-year-old male with known history of coronary artery disease, heart failure with reduced ejection fraction, pacemaker, A-fib. Presented to [facility] with onset of chest pain earlier today. States he developed some chest pain that radiated to his left neck. This was followed 30 to 60 minutes later by an episode of emesis. Denies any shortness of breath, confusion, syncope. Took 3 doses of nitroglycerin at home before going to the ER. On arrival to the ER his chest pain was improving. EKG obtained that did not show any significant ischemic changes per report. Serial troponins with fifth GEN high-sensitivity showed an 8 on presentation to [facility] followed by 7 2 hours later. Given multiple risk factors and concerning features of his chest pain, [facility] contacted [facility] for transfer and further management. Patient sees cardiology at [facility]. He requested to be transferred here if he needed to be admitted. Patient excepted for monitoring overnight on telemetry and further evaluation by cardiology in the morning. On arrival to [facility], he states that his chest pain is resolved at this time. Has no shortness of breath. He wears oxygen at night, 2 L, for baseline nocturnal hypoxia. Additionally complains of sniffing and pain from back injuries. Gets around with a wheelchair most of the time. Appears to be in his stable baseline health. Labs obtained including troponin, echo ordered for the morning. Hospital Course Hospital Course Hospital Course: 67-year-old male with significant coronary artery disease history, history of heart failure with reduced ejection fraction, pacemaker, A-fib, neuropathy, chronic back pain who presented as a transfer from [facility] due to onset of chest pain earlier today.? Discussed case with ER physician at [facility], requested transfer for monitoring overnight as they did not have a telemetry bed and patient's hand tier is with us at [facility].? Medicine accepted for transfer and admitted for further observation overnight.? Remained stable overnight, Chest pain not from a cardiac etiology. Problems addressed as follows: CAD Hypertension Angina A-fib Heart failure with reduced ejection fraction -Monitored on telemetry overnight. Reviewed results from [facility], troponin within normal range at 8 and 7 2 hours apart.? Repeat troponin <0.01 at [facility]. No ischemic changes on EKG from [facility]. Cardiology consulted. Chest pain resolved at the time of presentation to [facility]. patient recently had a cardiac catheterization in December 2021 with no significant coronary artery disease and patent stent noted.? He did have endothelial dysfunction of the LAD and circumflex arteries.? No plans for intervention at this time. Chronic atrial fibrillation for which he is on chronic Xarelto therapy. HFrEF with EF 45%, clinically stable. Pacemaker in situ since 2016 with evaluation in July of this year, unremarkable. Chest pain with atypical features including heartburn and dysphagia.? With history of laparoscopic banding, recommend repeat evaluation with EGD in the near future. Stable from a cardiac standpoint for discharge home. Resume home medications: Aspirin 81 mg daily Carvedilol 12.5 mg twice daily Digoxin 0.125 mg daily Jardiance 10 mg daily Xarelto 20 mg Follow-up in our office in 2 weeks. Recommend EGD for evaluation of dysphagia or swallowing study since patient does not like to undergo anesthesia. COPD - continued home inhalers with Stiolto. Supplemental oxygen overnight with goal saturation greater 90% per home regimen. Chronic pain Neuropathy Restless leg syndrome -Continue home oxycodone 10 mg as needed every 4-6 hours -Continue gabapentin at reduced dose of 600 mg 3 times a day as needed -Continue ropi
--- NOTE | 2022-12-10 12:58 | HMH.PHAINT1 ---
Pharmacy Intervention Comments: Discharge medication counseling completed. Patient was starting no new meds and had no questions about his current medications.
--- NOTE | 2022-12-12 15:00 | CARE MANAGER ---
Spoke with patient for post-discharge phone interview, patient states stomach is bothering me. Patient has appointment with data center consultant in the am.
== END 2022-12-10 14:00 | disposition home or self-care (01) ==
PROVIDERS: Admitting Provider Internal Medicine Adolescent Medicine; PCP Family Medicine; Visit Provider Internal Medicine Adolescent Medicine
DX: I13.0 Hypertensive heart and chronic kidney disease with heart failure and stage 1 through stage 4 chronic kidney disease, or unspecified chronic kidney disease (principal); N18.2 Chronic kidney disease, stage 2 (mild); I48.20 Chronic atrial fibrillation, unspecified; I50.20 Unspecified systolic (congestive) heart failure; Z95.0 Presence of cardiac pacemaker; J44.9 Chronic obstructive pulmonary disease, unspecified; E11.22 Type 2 diabetes mellitus with diabetic chronic kidney disease; G47.33 Obstructive sleep apnea (adult) (pediatric); E78.5 Hyperlipidemia, unspecified; I25.118 Atherosclerotic heart disease of native coronary artery with other forms of angina pectoris; Z79.84 Long term (current) use of oral hypoglycemic drugs
CPT/HCPCS: G0378; G0379; 36415; 80053; 80061; 82962; 83036; 83735; 84443; 84484; 85025; 87636; C9803; U0003; U0005

== ENCOUNTER → 2023-05-16 15:33 | Outpatient (CLI) | payer MEDICARE, MEDICAID, SELFPAY ==
[2023-05-16 16:15] LABS: Basophils # 0.1 K/mm3 (0-0.2); Basophils % 1.1 % (0.1-2.0); Eosinophils # 0.3 K/mm3 (0.0-0.4); Eosinophils % 3.1 % (0.1-12.0); Hematocrit 47.3 % (42.0-52.0); Lymphocytes # 1.5 K/mm3 (0.7-4.5); Lymphocytes % 15.5 % (10-50); Mean Corpuscular HGB Conc 33.9 g/dL (31.8-35.4); Mean Corpuscular Hemoglobin 28.3 pg (27.0-31.2); Mean Corpuscular Volume 83.4 fl (80-94); Mean Platelet Volume 8.4 fl (7.4-10.4); Monocytes # 0.9 K/mm3 (0.1-1.0); Monocytes % 9.3 % (1.7-9.3); Neutrophils # 6.6 K/mm3 (1.8-7.8); Neutrophils % 70.9 % (37.0-80.0); Platelet Count 438 K/mm3 (142-424); Red Blood Count 5.67 M/mm3 (4.60-6.20); Red Cell Distribution Width 16.3 % (11.5-17.5); White Blood Count 9.3 K/mm3 (4.8-10.8)
[2023-05-16 16:34] LABS: Alanine Aminotransferase 26 U/L (12-78); Albumin Level 4.2 g/dl (3.5-5.0); Alkaline Phosphatase 43 U/L (38-126); Anion Gap 16.5 mEq/L (5-15); Aspartate Amino Transferase 25 U/L (17-59); Bilirubin,Direct 0.2 mg/dl (0.0-0.4); Bilirubin,Indirect 0.3 mg/dL (0.0-0.9); Bilirubin,Total 0.5 mg/dl (0.2-1.3); Bilirubin,Unconjugated 0.3 mg/dL (0.0-1.1); Blood Urea Nitrogen 25 mg/dl (9-20); Calcium 9.2 mg/dl (8.4-10.2); Carbon Dioxide 29 mmol/L (22.0-30.0); Chloride 94 mmol/L (98-107); Chol/HDL Ratio 4.5 (1-3.5); Cholesterol 98 mg/dl (140-200); Estimated Glomerular Filt Rate 74 ml/min (>60); GFR (African American) 90 ML/MIN (>60); Glucose 229 mg/dl (74-100); HDL Cholesterol 22 mg/dl (40-60); Potassium 4.5 mmoL/L (3.5-5.1); Sodium 135 mmol/L (136-145); Total Protein,Serum 7.3 g/dl (6.3-8.2); Triglycerides 204 mg/dl (30-150); VLDL Cholesterol 41 mg/dL (0-40)
[2023-05-16 16:44] LABS: Direct LDL Cholesterol 57.73 mg/dL (100-129)
[2023-05-16 17:05] LABS: Thyroid Stimulating Hormone 2.26 uIU/mL (0.465-4.68)
[2023-05-17 00:18] LABS: Free T4 (Free Thyroxine) 1.53 ng/dl (0.78-2.19)
== END ==
PROVIDERS: PCP Family Medicine; Visit Provider Nurse Practitioner
DX: E78.2 Mixed hyperlipidemia; E78.5 Hyperlipidemia, unspecified; I11.0 Hypertensive heart disease with heart failure; I48.91 Unspecified atrial fibrillation; N18.2 Chronic kidney disease, stage 2 (mild); N52.9 Male erectile dysfunction, unspecified; Z95.0 Presence of cardiac pacemaker
CPT/HCPCS: 36415; 80048; 80061; 80076; 83735; 84439; 84443; 85025

== ENCOUNTER 2024-11-11 15:00 | Observation (INO) | payer MEDICARE, MEDICAID, SELFPAY ==
[2024-11-11] VITALS (10 sets, daily range): BP systolic 113–163; BP diastolic 78–113; PULSE 93–124; RESP 12–22; TEMP 36.6–37; O2SAT 92–98; BMI 42.4
--- NOTE | 2024-11-11 15:08 | ECG_ITS ---
APPROVED REPORT Exam: Resting ECG HR:122 bpm ECG Measurements Heart Rate 122 AXES QRSd 99 QRS 63 QT 300 T 74 QTc 373 Conclusion ATRIAL FIBRILLATION WITH RAPID VENTRICULAR RESPONSE NONSPECIFIC ST & T-WAVE ABNORMALITY ABNORMAL RHYTHM ECG UNCONFIRMED REPORT Electronically signed by : Clinton Pritchett, 11/11/2024 23:08:54
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
--- NOTE | 2024-11-11 15:22 | XR_ITS ---
FINAL REPORT CLINICAL HISTORY: Shortness of breath, A-fib RVR COMPARISON: 01/10/2017 FINDINGS: PA and lateral views of the chest are obtained. There is no change in the left-sided pacemaker. The cardiac and mediastinal silhouettes are within normal limits. The lungs are clear. There is no pleural effusion, pneumothorax, or acute osseous abnormality. IMPRESSION: No radiographic evidence of acute cardiac or pulmonary disease. Reviewed, Interpreted and Dictated by Kusum Oconnor MD Transcribed by Jocelyne Bassett Authenticated and [facility]
--- NOTE | 2024-11-11 15:25 | PC.NURSE ---
RT notified of VBG sent to the lab
[2024-11-11 15:30] LABS: VBG Base Excess 1.2 mmol/L (-2.4-2.3); VBG HCO3 26.7 mmol/L (23-30); VBG Oxygen Saturation 81.1 % (50-70); VBG PCO2 49.3 mmol/L (35-51); VBG PH 7.35 mmol/L (7.31-7.41); VBG PO2 46.8 mmol/L (28-40); VBG Total CO2 28.2 mmol/L (23-27)
[2024-11-11 15:40] LABS: Basophils # 0.1 K/mm3 (0-0.2); Eosinophils % 0.3 % (0.1-12.0); Hematocrit 51.4 % (42.0-52.0); Hemoglobin 16.9 g/dL (14.1-18.0); Immature Granulocytes # 0.14 10^3uL; Immature Granulocytes % 1.4 %; Lymphocytes # 0.5 K/mm3 (0.7-4.5); Lymphocytes % 4.7 % (10-50); Mean Corpuscular HGB Conc 32.9 g/dL (31.8-35.4); Mean Corpuscular Hemoglobin 27.6 pg (27.0-31.2); Mean Corpuscular Volume 83.8 fl (80-94); Mean Platelet Volume 9.1 fl (7.4-10.4); Monocytes # 0.7 K/mm3 (0.1-1.0); Monocytes % 7.1 % (1.7-9.3); Neutrophils # 8.8 K/mm3 (1.8-7.8); Neutrophils % 85.5 % (37.0-80.0); Nucleated Red Blood Cells # 0 10^3/uL; Nucleated Red Blood Cells % 0 %; Platelet Count 377 K/mm3 (142-424); Red Blood Count 6.13 M/mm3 (4.60-6.20); Red Cell Distribution Width 15.1 % (11.5-17.5); Red Cell Distribution Width-SD 44.7 fL; White Blood Count 10.3 K/mm3 (4.8-10.8)
[2024-11-11 15:41] LABS: Alanine Aminotransferase 33 U/L (12-78); Albumin Level 4.6 g/dl (3.5-5.0); Albumin/Globulin Ratio 1.9 (1.1-1.8); Alkaline Phosphatase 31 U/L (38-126); Anion Gap 11.6 mEq/L (5-15); Aspartate Amino Transferase 33 U/L (17-59); Blood Urea Nitrogen 37 mg/dl (9-20); Calcium 9.4 mg/dl (8.4-10.2); Carbon Dioxide 28 mmol/L (22.0-30.0); Chloride 98 mmol/L (98-107); Creatinine Clearance Estimated 74 mL/min (50-200); Estimated Glomerular Filt Rate 112 ml/min (>60); GFR (African American) 135 ML/MIN (>60); Globulin 2.4 g/dL (1.3-3.2); Glucose 299 mg/dl (74-100); Magnesium 2.3 mg/dl (1.6-2.3); Potassium 5.6 mmoL/L (3.5-5.1); Sodium 132 mmol/L (136-145)
[2024-11-11 15:42] LABS: MANUAL DIFFERENTIAL MANUAL DIFFERENTIAL (MANUAL DIFF)
[2024-11-11] MEDS: HYDROMORPHONE 2MG/ML SYRINGE 0.5 MG IV (15:52)
[2024-11-11 15:53] LABS: NT Pro Brain Natriuretic Pep. 651 pg/mL (0-125)
[2024-11-11] MEDS: FUROSEMIDE 40MG/4ML VIAL 80 MG IV (15:53)
[2024-11-11] MEDS: MAGNESIUM SULFATE IN WATER 2 GM/50 ML PIGGYBACK IV (15:53)
[2024-11-11 15:58] LABS: Procalcitonin 0.073 ng/mL (0.0-2.0)
[2024-11-11 16:08] LABS: Eosinophils % 1 % (0-3); Lymphocytes % 8 % (10-50); Monocytes % 7 % (2-9); Neutrophils % 84 % (42-76); Total Cells Counted 100
[2024-11-11 16:09] LABS: RBC Morphology Normal
[2024-11-11 16:11] LABS: Giant Platelets 1+; Platelet Estimate Normal
[2024-11-11 16:20] LABS: Troponin I < 0.01 ng/ml (0.00-0.034)
[2024-11-11 16:22] LABS: Triiodothryronine (T3) Uptake 39 % (23.5-40.5)
--- NOTE | 2024-11-11 16:51 | PC.NURSE ---
Pt voids 700cc
[2024-11-11 16:58] LABS: Free Thyroxine Index 3.4 ug/dL (5.93-13.13); T4 (Thyroxine) 8.8 ug/dl (5.53-11.0)
--- NOTE | 2024-11-11 17:09 | EXP.HP ---
History of Present Illness *Admission Date: 11/11/24 *Reason for visit:: Shortness of breath *History of present illness: Hugh Sanches is 69-year-old male with a medical history significant for A-fib who presented with progressive shortness of breath and was admitted for A-fib RVR, community-acquired pneumonia. Heart rate found to be in the 120s in the ED. Case discussed with ED provider and additions were made to admit patient for A-fib RVR. [facility] Disclaimer: The information contained in this section may have been updated after the patient was seen, as this information can be updated by other users. Medical History Hypertension CAD in [place] artery Acute on chronic HFrEF (heart failure with reduced ejection fraction) Atrial fibrillation with RVR Wheezing Cough LV dysfunction Cellulitis Atypical angina Abnormal cardiovascular stress test Claudication Abnormal ankle brachial index (EKTA) Chest pain Atrial fibrillation Chiari malformation Polycythemia Syncope Surgical History History of colonoscopy History of gastric surgery History of permanent cardiac pacemaker placement Social History Smoking Status: Never smoker alcohol intake: current alcohol intake frequency: a few times a month substance use type: denies use current occupational status: retired Travel in the last 8 weeks?: Inside the [place] household members: spouse housing: house current occupational exposures/hazards: No caffeine: Yes Other Medical History Have you received the Flu Vaccine for this season: No Have you received the Pneumonia Vaccine: Yes Meds Home Medications and Allergies Home Medications ?Medication ?Instructions ?Recorded ?Confirmed ?Type dexlansoprazole 60 mg 60 mg PO DAILY 10/17/17 11/23/24 History capsule,biphase delayed release (Dexilant) diphenhydramine HCl 25 mg tablet 25 mg PO Q4-6H PRN Allergies 10/17/17 11/23/24 History (Benadryl Allergy) gabapentin 800 mg tablet 800 mg PO TID 10/17/17 11/23/24 History glimepiride 2 mg tablet 2 mg PO BID 10/17/17 11/23/24 History ibuprofen 800 mg tablet 800 mg PO TID 10/17/17 11/23/24 History tamsulosin 0.4 mg capsule (Flomax) 0.4 mg PO HS 10/17/17 11/23/24 History loratadine 10 mg tablet (Claritin) 10 mg PO DAILY Allergy symptoms 02/13/18 11/23/24 History finasteride 5 mg tablet 5 mg PO DAILY 05/11/20 11/23/24 History aspirin 81 mg tablet,delayed 81 mg PO DAILY 10/18/21 11/23/24 History release semaglutide 1 mg/dose (4 mg/3 mL) 2 mg SQ WEEKLY Diabetes 10/18/21 11/23/24 History subcutaneous pen injector nitroglycerin 0.4 mg sublingual 0.4 mg sublingual Q5M PRN chest 01/22/22 11/23/24 Rx tablet pain #20 tabs sildenafil 100 mg tablet 100 mg PO DAILY PRN sexual 03/16/22 11/23/24 Rx activity #20 tabs budesonide 160 mcg-glycopyr 9 2 puff inhalation BID COPD 12/10/22 11/23/24 History mcg-formot 4.8 mcg/actuation HFA inhaler (Breztri Aerosphere) digoxin 125 mcg (0.125 mg) tablet 125 mcg PO DAILY 12/10/22 11/23/24 History sacubitril 24 mg-valsartan 26 mg 1 tab PO BID #60 tabs 05/16/23 11/23/24 Rx tablet (Entresto) rivaroxaban 20 mg tablet (Xarelto) 20 mg PO PM Atrial fibrillation 07/14/24 11/23/24 Rx #90 tabs albuterol sulfate 90 mcg/actuation 2 inh inhalation Q4HP PRN 11/12/24 11/23/24 History aerosol inhaler Shortness Of Breath alprazolam 1 mg tablet 1 mg PO QID 11/12/24 11/23/24 History empagliflozin 10 mg tablet 10 mg PO DAILY 11/12/24 11/23/24 History (Jardiance) metoprolol tartrate 50 mg tablet 50 mg PO BID 30 days #60 tabs 11/12/24 11/23/24 Rx oxycodone-acetaminophen 10 mg-325 1 tab PO 5XDAY Pain 11/12/24 11/23/24 History mg tablet ropinirole 2 mg tablet 2 mg PO HSP PRN restless legs 11/12/24 11/23/24 History spironolactone 25 mg tablet 25 mg PO DAILY #30 tabs 11/12/24 11/23/24 Rx rosuvastatin 20 mg tablet 20 mg PO DAILY #90 tabs 11/23/24 11/23/24 Rx torsemide 20 mg tablet See Rx Instructions PO .COMPLEX 11/23/24 11/23/24 History New Prescriptions to Start Prescriptions: metoprolol tartrate Orion Will spironolactone Orion Will Allergies Allergy/AdvReac Type Severity Reaction Status Date / Time Penicillins (PENICILLINS) Allergy Intermediate I-HIVES Verified 11/23/24 14:20 Exam Data for Last 24 hours Vital signs and Labs for Last 24 Hours: Temp Pulse Resp BP Pulse Ox O2 Del Method 98.6 F 124 H 13 128/113 H 96 Room Air 11/11/24 15:18 11/11/24 17:01 11/11/24 17:01 11/11/24 17:01 11/11/24 17:01 11/11/24 17:01 Laboratory Results - last 24 hr 11/11/24 15:21: WBC 10.3, RBC 6.13, Hgb 16.9, Hct 51.4, MCV 83.8, MCH 27.6, MCHC 32.9, RDW 15.1, Plt Count 377, MPV 9.1, Neut % (Auto) 85.5 H, Lymph % (Auto) 4.7 L, Ellis % (Auto) 7.1, Eos % (Auto) 0.3, Baso % (Auto) 1.0, Neut # (Auto) 8.8 H, Lymph # (Auto) 0.5 L, Ellis # (Auto) 0.7, Eos # (Auto) 0.0, Baso # (Auto) 0.1, Total Counted 100, Neutrophils % (Manual) 84 H, Lymphocytes % (Manual) 8 L, Monocytes % (Manual) 7, Eosinophils % (Manual) 1, Platelet Estimate Normal, Giant Platelets 1+, RBC Morphology Normal, VBG pH 7.35, VBG pCO2 49.3, VBG pO2 46.8 H, VBG HCO3 26.7, VBG Total CO2 28.2 H, VBG O2 Saturation 81.1 H, VBG Base Excess 1.2, VBG Lactic Acid 3.0 H, Sodium 132 L, Potassium 5.6 H, Chloride 98, Carbon Dioxide 28, Anion Gap 11.6, BUN 37 H, Creatinine 0.70, Estimated Creat Clear 74, Estimated GFR 112, Est GFR ( Amer) 135, Glucose 299 H, Calcium 9.4, Magnesium 2.3, Total Bilirubin 1.0, AST 33, ALT 33, Alkaline Phosphatase 31 L, Troponin I < 0.01, NT-Pro-B Natriuret Pep 651 H, Total Protein 7.0, Albumin 4.6, Globulin 2.4, Albumin/Globulin Ratio 1.9 H, Procalcitonin 0.073, Free T4 Index 3.4 L, Thyroxine (T4) 8.8, T3 Uptake 39, Digoxin 0.60 I & O for Last 24 hours: Intake & Output 11/08/24 11/09/24 11/10/24 11/11/24 23:59 23:59 23:59 23:59 Output Total 700 / 700 Balance -700 / -700 Weight 137.892 kg Constitutional Constitutional: no acute distress *Routine HEENT Exam Head: Present normocephalic Eye: Present EOMI and PERRL ENT: Present mucous membranes moist *Routine Neck Exam Neck: Present supple; Absent lymphadenopathy *Routine Respiratory Exam Respiratory: Present CTA bilaterally *Routine Cardiovascular Exam Cardiovascular: Present irregular rhythm *Routine Abdominal Exam Abdominal: Present soft and normoactive bowel sounds; Absent tenderness *Routine Rectal Exam Rectal:: deferred *Routine Genitalia Exam Genitalia:: deferred *Routine Extremities Exam Extremities: Absent cyanosis, clubbing or edema *Routine Skin Exam Skin: Present warm; Absent rash *Routine Neurological Exam Neurological: Present alert and oriented X3 Assessment and Plan *Assessment and plan (1) Atrial fibrillation with RVR: Status: Acute Category: Medical Code(s): I48.91 - Unspecified atrial fibrillation Plan Hugh Sanches is 69-year-old male with a medical history significant for A-fib who presented with progressive shortness of breath and was admitted for A-fib RVR, community-acquired pneumonia. Heart rate found to be in the 120s in the ED. Case discussed with ED provider and additions were made to admit patient for A-fib RVR. #A-fib RVR ? Heart rate in the 120s initially, improved with IV Lopressor 5 mg on the floor. ? Started metoprolol tartrate 50 mg twice daily, discontinued home Coreg 3.125mg. ? Continue home digoxin 0.125 mcg. ? Therapeutic Lovenox for now, plan to transition back to Xarelto tomorrow if rate controlled. ? Has had shortness of breath, productive cough over the past week. CXR suggestive of pneumonia. Likely exacerbating A-fib RVR. ? Cardiology consulted, pending further recommendations. #Community-acquired pneumonia ? Likely exacerbating A-fib. ? CXR suggestive of multifocal pneumonia, predominantly in the right lower lobe. ? Ceftriaxone, doxycycline day 1. ? Follow-up full respiratory panel. ? Follow-up sputum culture. #HFmrEF ? Currently euvolemic. Though given IV Lasix 80 mg in the ED. ? Continue home torsemide 40 mg daily. ? Continue home GDMT. ? Follow-up repeat ECHO. #COPD ? Continue home Breztri. #GERD ? Continue home PPI. Full code DVT prophylaxis: Therapeutic Lovenox as above
--- NOTE | 2024-11-11 17:11 | PC.NURSE ---
fuel house attendant notified of admission
[2024-11-11 17:12] LABS: Thyroid Stimulating Hormone 0.81 uIU/mL (0.465-4.68)
--- NOTE | 2024-11-11 17:34 | PC.NURSE ---
Care handoff report called to Cinthia PEDROZA. PT pending transport to assigned room
--- NOTE | 2024-11-11 18:18 | PC.WOUNDNOTE ---
Abrasions to upper left arm Abrasions to lower right arm
[2024-11-11] MEDS: ENOXAPARIN 100MG/ML SYRINGE 140 MG SUBCUT (18:28)
[2024-11-11] MEDS: METOPROLOL TARTRATE 5MG/5ML VIAL 5 MG IV (18:30)
[2024-11-11 19:30] LABS: Reflex Lactic Add Lactic Reflex
[2024-11-11 19:37] LABS: Troponin I < 0.01 ng/ml (0.00-0.034)
[2024-11-11 19:47] LABS: Lactic Acid Follow Up (RFLX 1) 1.6 mmol/L (0.7-2.1)
[2024-11-11 20:14] LABS: POC Glucose,Bedside 265 (70-110)
[2024-11-11] MEDS: IPRATROPIUM/ALBUTEROL 3 ML NEB IH (20:22)
[2024-11-11] MEDS: METOPROLOL TARTRATE 50MG TABLET 50 MG PO (20:41)
[2024-11-11] MEDS: TAMSULOSIN 0.4MG CAPSULE 0.4 MG PO (20:41)
[2024-11-11] MEDS: GABAPENTIN 800MG TABLET 800 MG PO (20:41)
[2024-11-11] MEDS: PANTOPRAZOLE 40MG TABLET 40 MG PO (20:42)
[2024-11-11] MEDS: LOKELMA 5GM PACKET 10 GM PO (20:42)
[2024-11-11] MEDS: DOXYCYCLINE HYCLATE 100 MG in 0.9 % SODIUM CHLORIDE 250 ML 166.667 MG IV (20:42)
[2024-11-11] MEDS: SACUBITRIL/VALSARTAN 24-26MG TABLET 1 EACH PO (20:42)
[2024-11-11] MEDS: CEFTRIAXONE 1 GM 1 GM in 0.9 % SODIUM CHLORIDE 50 ML IV (20:43)
[2024-11-11] MEDS: humaLOG 100 UNITS/ML 10ML VIAL (SSI) SUBCUT (20:43)
[2024-11-11] MEDS: OXYCODONE 10MG W/APAP 325MG TABLET 1 EACH PO (20:58)
[2024-11-11] MEDS: SODIUM CHLORIDE 3% 15ML NEB 3 ML IH (21:47)
[2024-11-11] MEDS: ALPRAZolam 0.5MG TABLET 1 MG PO (21:49)
[2024-11-11 21:56] LABS: Adenovirus,PCR Not Detected (NotDetected); Bordetella Pertussis Not Detected (NotDetected); Chlamydophila Pneumoniae, PCR Not Detected (NotDetected); Coronavirus 19, PCR Not Detected (NotDetected); Coronavirus 229E Not Detected (NotDetected); Coronavirus NL63 Not Detected (NotDetected); Coronavirus OC43 Not Detected (NotDetected); Coronovirus HKU1,PCR Not Detected (NotDetected); Human Metapneumovirus Not Detected (NotDetected); Influenza A, PCR Not Detected (NotDetected); Influenza AH1, 2009 Not Detected (NotDetected); Influenza AH1, PCR Not Detected (NotDetected); Influenza AH3,PCR Not Detected (NotDetected); Influenza B, PCR Not Detected (NotDetected); Mycoplasma Pneumoniae, PCR Not Detected (NotDetected); Parainfluenza 1, PCR Not Detected (NotDetected); Parainfluenza 2, PCR Not Detected (NotDetected); Parainfluenza 3, PCR Not Detected (NotDetected); Parainfluenza 4, PCR Not Detected (NotDetected); Respiratory Syncytial Virus Not Detected (NotDetected); Rhinovirus/Enterovirus Not Detected (NotDetected)
[2024-11-11 22:23] LABS: Troponin I < 0.01 ng/ml (0.00-0.034)
[2024-11-12] VITALS (10 sets, daily range): BP systolic 83–154; BP diastolic 47–85; PULSE 74–115; RESP 14–22; TEMP 36.4–36.8; O2SAT 93–97; BMI 42.5; BMI 41.6
[2024-11-12] MEDS: OXYCODONE 10MG W/APAP 325MG TABLET 1 EACH PO ×2 (03:37→11:56)
[2024-11-12] MEDS: ENOXAPARIN 100MG/ML SYRINGE 140 MG SUBCUT (05:15)
[2024-11-12 05:46] LABS: POC Glucose,Bedside 120 (70-110)
[2024-11-12 05:51] LABS: Alanine Aminotransferase 25 U/L (12-78); Albumin/Globulin Ratio 1.7 (1.1-1.8); Alkaline Phosphatase 43 U/L (38-126); Anion Gap 5.7 mEq/L (5-15); Aspartate Amino Transferase 19 U/L (17-59); Bilirubin,Total 0.8 mg/dl (0.2-1.3); Blood Urea Nitrogen 39 mg/dl (9-20); Carbon Dioxide 32 mmol/L (22.0-30.0); Chloride 99 mmol/L (98-107); Creatinine Clearance Estimated 72 mL/min (50-200); Estimated Glomerular Filt Rate 84 ml/min (>60); GFR (African American) 101 ML/MIN (>60); Globulin 2.3 g/dL (1.3-3.2); Glucose 106 mg/dl (74-100); Magnesium 2.5 mg/dl (1.6-2.3); Potassium 3.7 mmoL/L (3.5-5.1); Sodium 133 mmol/L (136-145); Total Protein,Serum 6.3 g/dl (6.3-8.2)
[2024-11-12 05:56] LABS: Basophils # 0.1 K/mm3 (0-0.2); Basophils % 0.9 % (0.1-2.0); Eosinophils # 0.2 Kmm3 (0.0-0.4); Eosinophils % 1.2 % (0.1-12.0); Hematocrit 50.9 % (42.0-52.0); Hemoglobin 16.9 g/dL (14.1-18.0); Immature Granulocytes # 0.19 10^3uL; Immature Granulocytes % 1.5 %; Lymphocytes # 1.5 K/mm3 (0.7-4.5); Lymphocytes % 11.8 % (10-50); Mean Corpuscular HGB Conc 33.2 g/dL (31.8-35.4); Mean Corpuscular Hemoglobin 27.7 pg (27.0-31.2); Mean Corpuscular Volume 83.4 fl (80-94); Mean Platelet Volume 9.3 fl (7.4-10.4); Monocytes # 1.5 K/mm3 (0.1-1.0); Monocytes % 11.9 % (1.7-9.3); Neutrophils # 9.3 K/mm3 (1.8-7.8); Neutrophils % 72.7 % (37.0-80.0); Nucleated Red Blood Cells # 0 10^3/uL; Nucleated Red Blood Cells % 0 %; Platelet Count 410 K/mm3 (142-424); Red Cell Distribution Width 15.2 % (11.5-17.5); Red Cell Distribution Width-SD 44.5 fL; White Blood Count 12.7 K/mm3 (4.8-10.8)
[2024-11-12] MEDS: IPRATROPIUM/ALBUTEROL 3 ML NEB IH ×2 (05:57→09:56)
--- NOTE | 2024-11-12 06:11 | CA_ITS ---
APPROVED REPORT EXAM: Comprehensive 2D, Doppler, and color-flow Echocardiogram Family Practice Physician: THOMAS Aragon, RVS Ht: 5 ft 10 in Wt: 304lbs BSA: 2.49 BP: 94/38 mmHg Rhythm: Atrial Fibrillation Indications: COPD, Pneumonia, Afib, SOB, Pacer, GERD Echo Enhancing Agent Comments: TDS; Due to body habitus with lung impedance 2D Dimensions LA Volume 92.40 mL LA Volume Index 36.96 mL/m2 (M/F) 16-34 EF AP2 46.8 % GL Strain -17.2 % M-Mode Dimensions RVDd 2.50 cm (0.9-2.6) LA Diam 4.56 cm (1.9-4.0) LVDd 6.13 cm (3.5-5.7) LVDs 4.47 cm (3.5-5.7) IVSd 1.33 cm (0.6-1.1) PWd 1.23 cm (0.6-1.1) EF (Teich) 51.90% EPSs 0.94 cm FS 27.10% EDV (Teich) 189.00 mL TAPSE 2.31 (<1.7) ESV (Teich) 91.00 mL LV Diastology E Decel Time 147 (160-240 msec) E/A Ratio 2.45 MED A' 3.30 cm/s LAT A' 7.80 cm/s Aortic Valve RYAN Index 1.00 cm2/m2 AoV Peak [place]. 108.0 (50-130 cm/s) AO Peak GR. 4.70 mmHg AO Mean GR. 2.30 (<5 mmHg) AO VTI 17.7 (18-25 cm) RYAN (VTI) 2.54 (2.5-4.5 cm2) Mitral Valve MV A Velocity 28.0 (40-130 cm/s) E/A Ratio 2.45 Left Ventricle The left ventricle is normal size. The left ventricular systolic function is low normal. There is increased overall thickness. Diastolic function is indeterminate. LVEF is 50%. Right Ventricle The right ventricle is normal size. The right ventricular systolic function is normal. Atria Left atrium is mildly dilated. Right atrium is mildly dilated. There is no Doppler evidence of interatrial shunt. Aortic Valve Aortic valve is mildly thickened. There is no aortic valvular stenosis. Trace aortic regurgitation. Mitral Valve The mitral valve is normal in structure. No evidence of mitral valve stenosis. Trace mitral regurgitation. Tricuspid Valve Tricuspid valve is grossly normal in structure and function. Trace tricuspid regurgitation. Pulmonic Valve The pulmonary valve is normal in structure. There is insufficient TR jet to estimate RVSP. Great Vessels The aortic root is normal in size. IVC is normal in size and collapses >50% with inspiration. Pericardium There is no pericardial effusion. Electronically signed by : Lauryn Andersen MD 11/12/2024 13:09:24
[2024-11-12 08:48] LABS: Chol/HDL Ratio 5.9 (1-3.5); Cholesterol 164 mg/dl (140-200); HDL Cholesterol 28 mg/dl (40-60); Triglycerides 218 mg/dl (30-150); VLDL Cholesterol 44 mg/dL (0-40)
[2024-11-12] MEDS: GABAPENTIN 800MG TABLET 800 MG PO ×2 (09:10→13:47)
[2024-11-12] MEDS: DOXYCYCLINE HYCLATE 100 MG in 0.9 % SODIUM CHLORIDE 250 ML 166.667 MG IV (09:10)
[2024-11-12] MEDS: SACUBITRIL/VALSARTAN 24-26MG TABLET 1 EACH PO (09:10)
[2024-11-12] MEDS: DIGOXIN 0.125MG TABLET 125 MCG PO (09:12)
[2024-11-12] MEDS: EMPAGLIFLOZIN 10MG TABLET 10 MG PO (09:13)
[2024-11-12] MEDS: ALPRAZolam 0.5MG TABLET 1 MG PO ×2 (09:13→13:47)
[2024-11-12] MEDS: predniSONE 20MG TAB 40 MG PO (09:13)
[2024-11-12] MEDS: METOPROLOL TARTRATE 25MG TABLET 25 MG PO (09:13)
[2024-11-12] MEDS: TORSEMIDE 20MG TABLET 40 MG PO (09:14)
[2024-11-12] MEDS: FINASTERIDE 5MG TABLET 5 MG PO (09:14)
[2024-11-12] MEDS: HYDROCORTISONE 1% CREAM 30GM TUBE TP (09:14)
[2024-11-12] MEDS: ASPIRIN EC 81MG TABLET 81 MG PO (09:14)
--- NOTE | 2024-11-12 11:01 | EXP.CARD.CON ---
History of Present Illness History of Present Illness Consult date: 11/12/24 Requesting physician: Orion Will Consult reason: congestive heart failure and known to you Chief complaint: SOA History of present illness: This is a 69-year-old white gentleman who presented to the emergency department with shortness of breath. The patient was previously evaluated in cardiology clinic and found to be in atrial fibrillation with RVR and acute exacerbation of her chronic HFrEF. The patient was instructed to go to the emergency department and he was subsequently admitted to the hospital. The patient has a past medical history of known paroxysmal atrial fibrillation, HFrEF, chronic kidney disease, hypertension, hyperlipidemia, cardiac pacemaker, coronary artery disease, PAD. The patient has been having worsening shortness of breath with a cough and yellow/green sputum production. He also had associated bilateral lower extremity edema. He states his shortness of breath had been getting severe. He was diuresed with IV Lasix yesterday. He states he feels much better now. His shortness of breath is back to baseline. He states his bilateral lower extremity edema has improved. He denies any chest pain or pressure. He denies any fever, chills, nausea, vomiting, diarrhea. He states he is ready to be discharged home because he did not sleep well here at the hospital. [facility] Disclaimer: The information contained in this section may have been updated after the patient was seen, as this information can be updated by other users. Medical History (Updated 11/12/24 @ 11:07 by Sanjuanita Jackson APRN) Hypertension CAD in [place] artery Acute on chronic HFrEF (heart failure with reduced ejection fraction) Atrial fibrillation with RVR Wheezing Cough LV dysfunction Cellulitis Atypical angina Abnormal cardiovascular stress test Claudication Abnormal ankle brachial index (EKTA) Chest pain Atrial fibrillation Chiari malformation Polycythemia Syncope Surgical History History of colonoscopy History of gastric surgery History of permanent cardiac pacemaker placement Social History (Updated 11/11/24 @ 18:12 by Cinthia Radford RN) Smoking Status: Never smoker alcohol intake: current alcohol intake frequency: a few times a month substance use type: denies use current occupational status: retired Travel in the last 8 weeks?: Inside the [place] household members: spouse housing: house current occupational exposures/hazards: No caffeine: Yes Review of Systems Review of Systems Review of systems:: pertinent systems reviewed and negative unless documented below Constitutional Constitutional: Reports system reviewed and no additional complaints, except as documented, Reports fatigue and Reports lethargy Eyes Eyes: Reports system reviewed and no additional complaints, except as documented ENT Ears, Nose, Mouth, and Throat: Reports system reviewed and no additional complaints, except as documented *Cardiovascular Cardiovascular: Reports system reviewed and no additional complaints, except as documented, Denies chest pain, Reports dyspnea, Reports dyspnea on exertion, Reports leg edema and Reports pedal edema *Respiratory Respiratory: Reports system reviewed and no additional complaints, except as documented, Reports change in phlegm color, Reports cough, Reports dyspnea, Reports dyspnea on exertion and Reports excessive phlegm production *Gastrointestinal Gastrointestinal: Reports system reviewed and no additional complaints, except as documented *Genitourinary Genitourinary: Reports system reviewed and no additional complaints, except as documented *Musculoskeletal Musculoskeletal: Reports system reviewed and no additional complaints, except as documented Integumentary/Breasts Skin/Breast: Reports system reviewed and no additional complaints, except as documented *Neurologic Neurologic: Reports system reviewed and no additional complaints, except as documented Psychiatric Psychiatric: Reports system reviewed and no additional complaints, except as documented Endocrine Endocrine: Reports system reviewed and no additional complaints, except as documented and Reports fatigue Hematologic/Lymphatic Hematologic/Lymphatic: Reports system reviewed and no additional complaints, except as documented Allergic/Immunologic Allergic/Immunologic: Reports system reviewed and no additional complaints, except as documented Exam Data for Last 24 hours Vital signs and Labs for Last 24 Hours: Temp Pulse Resp BP Pulse Ox O2 Del Method 98.2 F 98 H 20 125/53 L 96 Room Air 11/12/24 08:00 11/12/24 10:00 11/12/24 10:00 11/12/24 10:00 11/12/24 10:00 11/12/24 10:00 Laboratory Results - last 24 hr 11/11/24 15:21: WBC 10.3, RBC 6.13, Hgb 16.9, Hct 51.4, MCV 83.8, MCH 27.6, MCHC 32.9, RDW 15.1, Plt Count 377, MPV 9.1, Neut % (Auto) 85.5 H, Lymph % (Auto) 4.7 L, Cobb % (Auto) 7.1, Eos % (Auto) 0.3, Baso % (Auto) 1.0, Neut # (Auto) 8.8 H, Lymph # (Auto) 0.5 L, Cobb # (Auto) 0.7, Eos # (Auto) 0.0, Baso # (Auto) 0.1, Total Counted 100, Neutrophils % (Manual) 84 H, Lymphocytes % (Manual) 8 L, Monocytes % (Manual) 7, Eosinophils % (Manual) 1, Platelet Estimate Normal, Giant Platelets 1+, RBC Morphology Normal, VBG pH 7.35, VBG pCO2 49.3, VBG pO2 46.8 H, VBG HCO3 26.7, VBG Total CO2 28.2 H, VBG O2 Saturation 81.1 H, VBG Base Excess 1.2, VBG Lactic Acid 3.0 H, Sodium 132 L, Potassium 5.6 H, Chloride 98, Carbon Dioxide 28, Anion Gap 11.6, BUN 37 H, Creatinine 0.70, Estimated Creat Clear 74, Estimated GFR 112, Est GFR ( Amer) 135, Glucose 299 H, Calcium 9.4, Magnesium 2.3, Total Bilirubin 1.0, AST 33, ALT 33, Alkaline Phosphatase 31 L, Troponin I < 0.01, NT-Pro-B Natriuret Pep 651 H, Total Protein 7.0, Albumin 4.6, Globulin 2.4, Albumin/Globulin Ratio 1.9 H, Procalcitonin 0.073, TSH 0.81, Free T4 Index 3.4 L, Thyroxine (T4) 8.8, T3 Uptake 39, Digoxin 0.60 11/11/24 18:39: Lactate 1.6, Troponin I < 0.01 11/11/24 20:06: POC Glucose 265 H 11/11/24 21:36: Troponin I < 0.01 11/11/24 21:44: Chlamy pneumoniae PCR Not detected, Adenovirus (PCR) Not detected, B. pertussis DNA (PCR) Not detected, Coronavirus OC43 (PCR) Not detected, Coronavirus HKU1 (PCR) Not detected, Coronavirus 229E (PCR) Not detected, SARS-CoV-2 (PCR) Not detected, Coronavirus NL63 (PCR) Not detected, Human Metapneumovir PCR Not detected, Influenza A (H1) PCR Not detected, Influ A (H1N1/09) PCR Not detected, Influenza A (H3) PCR Not detected, Influenza Type A (PCR) Not detected, Influenza Type B (PCR) Not detected, M. pneumoniae (PCR) Not detected, Parainfluenza 1 (PCR) Not detected, Parainfluenza 2 (PCR) Not detected, Parainfluenza 3 (PCR) Not detected, Parainfluenza 4 (PCR) Not detected, RSV (PCR) Not detected, Entero/Rhino (PCR) Not detected 11/12/24 05:11: WBC 12.7 H, RBC 6.10, Hgb 16.9, Hct 50.9, MCV 83.4, MCH 27.7, MCHC 33.2, RDW 15.2, Plt Count 410, MPV 9.3, Neut % (Auto) 72.7, Lymph % (Auto) 11.8, Cobb % (Auto) 11.9 H, Eos % (Auto) 1.2, Baso % (Auto) 0.9, Neut # (Auto) 9.3 H, Lymph # (Auto) 1.5, Cobb # (Auto) 1.5 H, Eos # (Auto) 0.2, Baso # (Auto) 0.1, Sodium 133 L, Potassium 3.7 D, Chloride 99, Carbon Dioxide 32 H, Anion Gap 5.7, BUN 39 H, Creatinine 0.90 D, Estimated Creat Clear 72, Estimated GFR 84, Est GFR ( Amer) 101 D, Glucose 106 H D, Calcium 9.0, Magnesium 2.5 H, Total Bilirubin 0.8, AST 19 D, ALT 25, Alkaline Phosphatase 43, Total Protein 6.3, Albumin 4.0 D, Globulin 2.3, Albumin/Globulin Ratio 1.7, Triglycerides 218 H, Cholesterol 164, LDL Cholesterol Direct 102.90, VLDL Cholesterol 44 H, HDL Cholesterol 28 L, Cholesterol/HDL Ratio 5.9 H 11/12/24 05:22: POC Glucose 120 H I & O for Last 24 hours: Intake & Output 11/09/24 11/10/24 11/11/24 11/12/24 23:59 23:59 23:59 23:59 Intake Total 1020 / 1020 Output Total 2175 / 2175 500 / 500 Balance -2175 / -1635 520 / 520 Weight 304 lb 304 lb 3.2 oz Microbiology Reports for the Last 24 Hours: Microbiology 11/11/24 21:50 Sputum - Expectorated Sputum Gram Stain - Final Constitutional Constitutional: no acute distress and morbidly obese *Routine HEENT Exam Head: Present normocephalic and atraumatic ENT: Present mucous membranes moist *Routine Neck Exam Neck: Present supple, full ROM and normal carotid upstroke; Absent JVD, carotid bruit or lymphadenopathy *Routine Respiratory Exam Respiratory: Present CTA bilaterally, normal respiratory effort, able to speak in complete sentences and symmetric chest movement *Routine Cardiovascular Exam Cardiovascular: Present Normal S1, Normal S2, tachycardia and irregularly irregular; Absent murmur or gallop *Routine Abdominal Exam Abdominal: Present soft and normoactive bowel sounds; Absent tenderness, distended or organomegaly *Routine Extremities Exam Extremities: Present edema, full ROM, pulses intact and normal capillary refill; Absent cyanosis or clubbing *Routine Skin Exam Skin: Present warm, wounds and cracked; Absent erythema *Routine Neurological Exam Neurological: Present alert, oriented X3 and CN II-XII intact; Absent sensory deficit or motor deficit Routine Psychiatric Exam Psychiatric: Present normal affect Meds Home Medications and Allergies Home Medications ?Medication ?Instructions ?Recorded ?Confirmed ?Type dexlansoprazole 60 mg 60 mg PO DAILY 10/17/17 11/11/24 History capsule,biphase delayed release (Dexilant) diphenhydramine HCl 25 mg tablet 25 mg PO Q4-6H PRN Allergies 10/17/17 11/11/24 History (Benadryl Allergy) gabapentin 800 mg tablet 800 mg PO TID 10/17/17 11/11/24 History glimepiride 2 mg tablet 2 mg PO BID 10/17/17 11/12/24 History ibuprofen 800 mg tablet 800 mg PO TID 10/17/17 11/11/24 History tamsulosin 0.4 mg capsule (Flomax) 0.4 mg PO HS 10/17/17 11/11/24 History loratadine 10 mg tablet (Claritin) 10 mg PO DAILY Allergy symptoms 02/13/18 11/11/24 History finasteride 5 mg tablet 5 mg PO DAILY 05/11/20 11/11/24 History aspirin 81 mg tablet,delayed 81 mg PO DAILY 10/18/21 11/11/24 History release semaglutide 1 mg/dose (4 mg/3 mL) 2 mg SQ WEEKLY Diabetes 10/18/21 11/11/24 History subcutaneous pen injector nitroglycerin 0.4 mg sublingual 0.4 mg sublingual Q5M PRN chest 01/22/22 11/11/24 Rx tablet pain #20 tabs sildenafil 100 mg tablet 100 mg PO DAILY PRN sexual 03/16/22 11/11/24 Rx activity #20 tabs budesonide 160 mcg-glycopyr 9 2 puff inhalation BID COPD 12/10/22 11/11/24 History mcg-formot 4.8 mcg/actuation HFA inhaler (Breztri Aerosphere) digoxin 125 mcg (0.125 mg) tablet 125 mcg PO DAILY 12/10/22 11/12/24 History sacubitril 24 mg-valsartan 26 mg 1 tab PO BID #60 tabs 05/16/23 11/12/24 Rx tablet (Entresto) torsemide 20 mg tablet 40 mg PO DAILY 06/18/23 11/11/24 History prednisone 20 mg tablet 40 mg (2 x 20 mg) PO DAILY 5 days 01/20/24 11/11/24 Rx #10 tabs rivaroxaban 20 mg tablet (Xarelto) 20 mg PO PM Atrial fibrillation 07/14/24 11/11/24 Rx #90 tabs albuterol sulfate 90 mcg/actuation 2 inh inhalation Q4HP PRN 11/12/24 11/12/24 History aerosol inhaler Shortness Of Breath alprazolam 1 mg tablet 1 mg PO QID 11/12/24 11/12/24 History empagliflozin 10 mg tablet 10 mg PO DAILY 11/12/24 11/12/24 History (Jardiance) metoprolol tartrate 50 mg tablet 50 mg PO BID 30 days #60 tabs 11/12/24 Rx oxycodone-acetaminophen 10 mg-325 1 tab PO 5XDAY Pain 11/12/24 11/12/24 History mg tablet ropinirole 2 mg tablet 2 mg PO HSP PRN restless legs 11/12/24 11/12/24 History spironolactone 25 mg tablet 25 mg PO DAILY #30 tabs 11/12/24 Rx New Prescriptions to Start Prescriptions: metoprolol tartrate Orion Will spironolactone Orion Will Allergies Allergy/AdvReac Type Severity Reaction Status Date / Time Penicillins (PENICILLINS) Allergy Intermediate I-HIVES Verified 11/11/24 14:14 Assessment and Plan *Assessment and plan (1) Acute on chronic HFrEF (heart failure with reduced ejection fraction): Status: Acute Category: Medical Code(s): I50.23 - Acute on chronic systolic (congestive) heart failure (2) Atrial fibrillation with rapid ventricular response: Status: Acute Category: Medical Code(s): I48.91 - Unspecified atrial fibrillation (3) CAD in [place] artery: Status: Acute Category: Medical Code(s): I25.10 - Atherosclerotic heart disease of [place] coronary artery without angina pectoris (4) Atrial fibrillation: Status: Chronic Qualifiers: Atrial fibrillation type: chronic Qualified Code(s): I48.2 - Chronic atrial fibrillation Category: Medical Code(s): I48.91 - Unspecified atrial fibrillation (5) Hypertension: Status: Acute Qualifiers: Hypertension type: primary hypertension Qualified Code(s): I10 - Essential (primary) hypertension Category: Medical Code(s): I10 - Essential (primary) hypertension (6) HLD (hyperlipidemia): Status: Chronic Qualifiers: Hyperlipidemia type: mixed hyperlipidemia Qualified Code(s): E78.2 - Mixed hyperlipidemia Category: Medical Code(s): E78.5 - Hyperlipidemia, unspecified (7) Pacemaker: Status: Chronic Category: Medical Code(s): Z95.0 - Presence of cardiac pacemaker (8) Chronic obstructive lung disease: Status: Chronic Qualifiers: COPD type: emphysema Emphysema type: other Qualified Code(s): J43.8 - Other emphysema Category: Medical Code(s): J44.9 - Chronic obstructive pulmonary disease, unspecified Plan Plan: 1. The patient was admitted to the hospital for acute on chronic exacerbation of HFrEF. He was treated with IV Lasix yesterday and had a -2 L fluid balance overnight. He states that shortness of breath is significantly improved. He has been restarted on his home dose of torsemide and spironolactone. 2. He was also found to be in atrial fibrillation with RVR. His rate is still slightly elevated today. Will increase his metoprolol to tartrate to 50 mg p.o. twice daily. Continue digoxin. 3. Coronary artery disease is present. He denies any chest pain or pressure. His troponins are negative. No plans for invasive left cardiac catheterization at this time. Continue aspirin. 4. His echocardiogram is currently pending. 5. His blood pressure is well-controlled. 6. His LDL goal is less than 55. His LDL is 102. Will start him on Lipitor 40 mg p.o. nightly. 7. His PAD is likely stable. 8. Continue Entresto and Jardiance for HFrEF. 9. The the patient is on Xarelto for long-term anticoagulation. This has been switched over to Lovenox while he is hospitalized. 10. No further recommendations at this time from a cardiac standpoint. He can be discharged home today from a cardiac standpoint with follow-up in cardiology clinic in 1 to 2 weeks on an outpatient basis. 11. The patient can be discharged on the following cardiac medications: Aspirin 81 mg daily, digoxin 0.125 mg p.o. daily, Jardiance 10 mg daily, metoprolol tartrate 50 mg p.o. twice daily, Entresto 24/26 mg p.o. twice daily, torsemide 40 mg daily, spironolactone 25 mg daily, Xarelto 20 mg daily, Lipitor 40 mg p.o. nightly. Thank you for the opportunity to help participate in the care of this patient. All recommendations and orders are per Dr. Andersen
[2024-11-12 11:26] LABS: POC Glucose,Bedside 271 (70-110)
[2024-11-12] MEDS: humaLOG 100 UNITS/ML 10ML VIAL (SSI) SUBCUT (11:56)
--- NOTE | 2024-11-12 12:42 | P.DS_ITS ---
General Admission date:: 11/11/24 HPI HPI HPI: Hugh Sanches is 69-year-old male with a medical history significant for A-fib who presented with progressive shortness of breath and was admitted for A-fib RVR, community-acquired pneumonia. Hospital Course Hospital Course Hospital Course: Hugh Sanches is 69-year-old male with a medical history significant for A-fib who presented with progressive shortness of breath and was admitted for A-fib RVR, community-acquired pneumonia. #A-fib RVR ? Heart rate in the 120s initially, improved with IV Lopressor 5 mg on the floor. ? Discharged with metoprolol tartrate 50 mg twice daily, continue home Xarelto 20 mg, digoxin 0.125 mcg. ? Cardiology consulted, agreed with plan. Patient is rate controlled. Vital signs stable. ? Follow-up with cardiology within 2 weeks. #HFmrEF ? Currently euvolemic. Though given IV Lasix 80 mg in the ED. ? Continue home torsemide 40 mg daily. ? Continue home GDMT. #COPD ? Continue home Breztri. #GERD ? Continue home PPI. Total time spent on discharge: 32 minutes on chart review, counseling, documentation, and direct care with patient. Exam Data for Last 24 hours Vital signs and Labs for Last 24 Hours: Temp Pulse Resp BP Pulse Ox O2 Del Method 98.2 F 105 H 17 154/85 H 93 L Room Air 11/12/24 08:00 11/12/24 12:00 11/12/24 12:00 11/12/24 12:00 11/12/24 12:00 11/12/24 12:00 Laboratory Results - last 24 hr 11/11/24 15:21: WBC 10.3, RBC 6.13, Hgb 16.9, Hct 51.4, MCV 83.8, MCH 27.6, MCHC 32.9, RDW 15.1, Plt Count 377, MPV 9.1, Neut % (Auto) 85.5 H, Lymph % (Auto) 4.7 L, Garvin % (Auto) 7.1, Eos % (Auto) 0.3, Baso % (Auto) 1.0, Neut # (Auto) 8.8 H, Lymph # (Auto) 0.5 L, Garvin # (Auto) 0.7, Eos # (Auto) 0.0, Baso # (Auto) 0.1, Total Counted 100, Neutrophils % (Manual) 84 H, Lymphocytes % (Manual) 8 L, Monocytes % (Manual) 7, Eosinophils % (Manual) 1, Platelet Estimate Normal, Giant Platelets 1+, RBC Morphology Normal, VBG pH 7.35, VBG pCO2 49.3, VBG pO2 46.8 H, VBG HCO3 26.7, VBG Total CO2 28.2 H, VBG O2 Saturation 81.1 H, VBG Base Excess 1.2, VBG Lactic Acid 3.0 H, Sodium 132 L, Potassium 5.6 H, Chloride 98, Carbon Dioxide 28, Anion Gap 11.6, BUN 37 H, Creatinine 0.70, Estimated Creat Clear 74, Estimated GFR 112, Est GFR ( Amer) 135, Glucose 299 H, Calcium 9.4, Magnesium 2.3, Total Bilirubin 1.0, AST 33, ALT 33, Alkaline Phosphatase 31 L, Troponin I < 0.01, NT-Pro-B Natriuret Pep 651 H, Total Protein 7.0, Albumin 4.6, Globulin 2.4, Albumin/Globulin Ratio 1.9 H, Procalcitonin 0.073, TSH 0.81, Free T4 Index 3.4 L, Thyroxine (T4) 8.8, T3 Uptake 39, Digoxin 0.60 11/11/24 18:39: Lactate 1.6, Troponin I < 0.01 11/11/24 20:06: POC Glucose 265 H 11/11/24 21:36: Troponin I < 0.01 11/11/24 21:44: Chlamy pneumoniae PCR Not detected, Adenovirus (PCR) Not detected, B. pertussis DNA (PCR) Not detected, Coronavirus OC43 (PCR) Not detected, Coronavirus HKU1 (PCR) Not detected, Coronavirus 229E (PCR) Not detected, SARS-CoV-2 (PCR) Not detected, Coronavirus NL63 (PCR) Not detected, Human Metapneumovir PCR Not detected, Influenza A (H1) PCR Not detected, Influ A (H1N1/09) PCR Not detected, Influenza A (H3) PCR Not detected, Influenza Type A (PCR) Not detected, Influenza Type B (PCR) Not detected, M. pneumoniae (PCR) Not detected, Parainfluenza 1 (PCR) Not detected, Parainfluenza 2 (PCR) Not dete cted, Parainfluenza 3 (PCR) Not detected, Parainfluenza 4 (PCR) Not detected, RSV (PCR) Not detected, Entero/Rhino (PCR) Not detected 11/12/24 05:11: WBC 12.7 H, RBC 6.10, Hgb 16.9, Hct 50.9, MCV 83.4, MCH 27.7, MCHC 33.2, RDW 15.2, Plt Count 410, MPV 9.3, Neut % (Auto) 72.7, Lymph % (Auto) 11.8, Garvin % (Auto) 11.9 H, Eos % (Auto) 1.2, Baso % (Auto) 0.9, Neut # (Auto) 9.3 H, Lymph # (Auto) 1.5, Garvin # (Auto) 1.5 H, Eos # (Auto) 0.2, Baso # (Auto) 0.1, Sodium 133 L, Potassium 3.7 D, Chloride 99, Carbon Dioxide 32 H, Anion Gap 5.7, BUN 39 H, Creatinine 0.90 D, Estimated Creat Clear 72, Estimated GFR 84, Est GFR ( Amer) 101 D, Glucose 106 H D, Calcium 9.0, Magnesium 2.5 H, Total Bilirubin 0.8, AST 19 D, ALT 25, Alkaline Phosphatase 43, Total Protein 6.3, Albumin 4.0 D, Globulin 2.3, Albumin/Globulin Ratio 1.7, Triglycerides 218 H, Cholesterol 164, LDL Cholesterol Direct 102.90, VLDL Cholesterol 44 H, HDL Cholesterol 28 L, Cholesterol/HDL Ratio 5.9 H 11/12/24 05:22: POC Glucose 120 H 11/12/24 11:17: POC Glucose 271 H Temp Pulse Resp BP Pulse Ox O2 Del Method 98.2 F 98 H 20 125/53 L 96 Room Air 11/12/24 08:00 11/12/24 10:00 11/12/24 10:00 11/12/24 10:00 11/12/24 10:00 11/12/24 10:00 Laboratory Results - last 24 hr 11/11/24 15:21: WBC 10.3, RBC 6.13, Hgb 16.9, Hct 51.4, MCV 83.8, MCH 27.6, MCHC 32.9, RDW 15.1, Plt Count 377, MPV 9.1, Neut % (Auto) 85.5 H, Lymph % (Auto) 4.7 L, Garvin % (Auto) 7.1, Eos % (Auto) 0.3, Baso % (Auto) 1.0, Neut # (Auto) 8.8 H, Lymph # (Auto) 0.5 L, Garvin # (Auto) 0.7, Eos # (Auto) 0.0, Baso # (Auto) 0.1, Total Counted 100, Neutrophils % (Manual) 84 H, Lymphocytes % (Manual) 8 L, Monocytes % (Manual) 7, Eosinophils % (Manual) 1, Platelet Estimate Normal, Giant Platelets 1+, RBC Morphology Normal, VBG pH 7.35, VBG pCO2 49.3, VBG pO2 46.8 H, VBG HCO3 26.7, VBG Total CO2 28.2 H, VBG O2 Saturation 81.1 H, VBG Base Excess 1.2, VBG Lactic Acid 3.0 H, Sodium 132 L, Potassium 5.6 H, Chloride 98, Carbon Dioxide 28, Anion Gap 11.6, BUN 37 H, Creatinine 0.70, Estimated Creat Clear 74, Estimated GFR 112, Est GFR ( Amer) 135, Glucose 299 H, Calcium 9.4, Magnesium 2.3, Total Bilirubin 1.0, AST 33, ALT 33, Alkaline Phosphatase 31 L, Troponin I < 0.01, NT-Pro-B Natriuret Pep 651 H, Total Protein 7.0, Albumin 4.6, Globulin 2.4, Albumin/Globulin Ratio 1.9 H, Procalcitonin 0.073, TSH 0.81, Free T4 Index 3.4 L, Thyroxine (T4) 8.8, T3 Uptake 39, Digoxin 0.60 11/11/24 18:39: Lactate 1.6, Troponin I < 0.01 11/11/24 20:06: POC Glucose 265 H 11/11/24 21:36: Troponin I < 0.01 11/11/24 21:44: Chlamy pneumoniae PCR Not detected, Adenovirus (PCR) Not detected, B. pertussis DNA (PCR) Not detected, Coronavirus OC43 (PCR) Not detected, Coronavirus HKU1 (PCR) Not detected, Coronavirus 229E (PCR) Not detected, SARS-CoV-2 (PCR) Not detected, Coronavirus NL63 (PCR) Not detected, Human Metapneumovir PCR Not detected, Influenza A (H1) PCR Not detected, Influ A (H1N1/09) PCR Not detected, Influenza A (H3) PCR Not detected, Influenza Type A (PCR) Not detected, Influenza Type B (PCR) Not detected, M. pneumoniae (PCR) Not detected, Parainfluenza 1 (PCR) Not detected, Parainfluenza 2 (PCR) Not detected, Parainfluenza 3 (PCR) Not detected, Parainfluenza 4 (PCR) Not detected, RSV (PCR) Not detected, Entero/Rhino (PCR) Not detected 11/12/24 05:11: WBC 12.7 H, RBC 6.10, Hgb 16.9, Hct 50.9, MCV 83.4, MCH 27.7, MCHC 33.2, RDW 15.2, Plt Count 410, MPV 9.3, Neut % (Auto) 72.7, Lymph % (Auto) 11.8, Garvin % (Auto) 11.9 H, Eos % (Auto) 1.2, Baso % (Auto) 0.9, Neut # (Auto) 9.3 H, Lymph # (Auto) 1.5, Garvin # (Auto) 1.5 H, Eos # (Auto) 0.2, Baso # (Auto) 0.1, Sodium 133 L, Potassium 3.7 D, Chloride 99, Carbon Dioxide 32 H, Anion Gap 5.7, BUN 39 H, Creatinine 0.90 D, Estimated Creat Clear 72, Estimated GFR 84, Est GFR ( Amer) 101 D, Glucose 106 H D, Calcium 9.0, Magnesium 2.5 H, Total Bilirubin 0.8, AST 19 D, ALT 25, Alkaline Phosphatase 43, Total Protein 6.3, Albumin 4.0 D, Globulin 2.3, Albumin/Globulin Ratio 1.7, Triglycerides 218 H, Cholesterol 164, LDL Cholesterol Direct 102.90, VLDL Cholesterol 44 H, HDL Cholesterol 28 L, Cholesterol/HDL Ratio 5.9 H 11/12/24 05:22: POC Glucose 120 H I & O for Last 24 hours: Intake & Output 11/09/24 11/10/24 11/11/24 11/12/24 23:59 23:59 23:59 23:59 Intake Total 1020 / 1020 Output Total 2175 / 2175 1999 Balance -2175 / -1635 -980 / -980 Weight 137.892 kg 137.983 kg Intake & Output 11/09/24 11/10/24 11/11/24 11/12/24 23:59 23:59 23:59 23:59 Intake Total 1020 / 1020 Output Total 2175 / 2175 500 / 500 Balance -2175 / -1635 520 / 520 Weight 304 lb 304 lb 3.2 oz Microbiology Reports for the Last 24 Hours: Microbiology 11/11/24 21:50 Sputum - Expectorated Sputum Gram Stain - Final 11/11/24 21:50 Sputum - Expectorated Sputum Sputum Culture - Preliminary Microbiology 11/11/24 21:50 Sputum - Expectorated Sputum Gram Stain - Final Constitutional Constitutional: no acute distress and morbidly obese *Routine HEENT Exam Head: Present normocephalic and atraumatic ENT: Present mucous membranes moist *Routine Neck Exam Neck: Present supple, full ROM and normal carotid upstroke; Absent JVD, carotid bruit or lymphadenopathy *Routine Respiratory Exam Respiratory: Present CTA bilaterally, normal respiratory effort, able to speak in complete sentences and symmetric chest movement *Routine Cardiovascular Exam Cardiovascular: Present Normal S1, Normal S2, tachycardia and irregularly irregular; Absent murmur or gallop *Routine Abdominal Exam Abdominal: Present soft and normoactive bowel sounds; Absent tenderness, distended or organomegaly *Routine Extremities Exam Extremities: Present edema, full ROM, pulses intact and normal capillary refill; Absent cyanosis or clubbing *Routine Skin Exam Skin: Present warm, wounds and cracked; Absent erythema *Routine Neurological Exam Neurological: Present alert, oriented X3 and CN II-XII intact; Absent sensory deficit or motor deficit Routine Psychiatric Exam Psychiatric: Present normal affect Results Data Completed and Pending Labs on day of discharge: Labs from last 24 hours 11/12/24 11/12/24 11/12/24 11:17 05:22 05:11 WBC 12.7 H RBC 6.10 Hgb 16.9 Hct 50.9 MCV 83.4 MCH 27.7 MCHC 33.2 RDW 15.2 Plt Count 410 MPV 9.3 Neut % (Auto) 72.7 Lymph % (Auto) 11.8 Garvin % (Auto) 11.9 H Eos % (Auto) 1.2 Baso % (Auto) 0.9 Neut # (Auto) 9.3 H Lymph # (Auto) 1.5 Garvin # (Auto) 1.5 H Eos # (Auto) 0.2 Baso # (Auto) 0.1 Total Counted Neutrophils % (Manual) Lymphocytes % (Manual) Monocytes % (Manual) Eosinophils % (Manual) Platelet Estimate Giant Platelets RBC Morphology VBG pH VBG pCO2 VBG pO2 VBG HCO3 VBG Total CO2 VBG O2 Saturation VBG Base Excess VBG Lactic Acid Sodium 133 L Potassium 3.7 D Chloride 99 Carbon Dioxide 32 H Anion Gap 5.7 BUN 39 H Creatinine 0.90 D Estimated Creat Clear 72 Estimated GFR 84 Est GFR ( Amer) 101 D Glucose 106 H D POC Glucose 271 H 120 H Lactate Calcium 9.0 Magnesium 2.5 H Total Bilirubin 0.8 AST 19 D ALT 25 Alkaline Phosphatase 43 Troponin I NT-Pro-B Natriuret Pep Total Protein 6.3 Albumin 4.0 D Globulin 2.3 Albumin/Globulin Ratio 1.7 Triglycerides 218 H Cholesterol 164 LDL Cholesterol Direct 102.90 VLDL Cholesterol 44 H HDL Cholesterol 28 L Cholesterol/HDL Ratio 5.9 H Procalcitonin TSH Free T4 Index Thyroxine (T4) T3 Uptake Digoxin Chlamy pneumoniae PCR Adenovirus (PCR) B. pertussis DNA (PCR) Coronavirus OC43 (PCR) Coronavirus HKU1 (PCR) Coronavirus 229E (PCR) SARS-CoV-2 (PCR) Coronavirus NL63 (PCR) Human Metapneumovir PCR Influenza A (H1) PCR Influ A (H1N1/09) PCR Influenza A (H3) PCR Influenza Type A (PCR) Influenza Type B (PCR) M. pneumoniae (PCR) Parainfluenza 1 (PCR) Parainfluenza 2 (PCR) Parainfluenza 3 (PCR) Parainfluenza 4 (PCR) RSV (PCR) Entero/Rhino (PCR) 11/11/24 11/11/24 11/11/24 21:44 21:36 20:06 WBC RBC Hgb Hct MCV MCH MCHC RDW Plt Count MPV Neut % (Auto) Lymph % (Auto) Garvin % (Auto) Eos % (Auto) Baso % (Auto) Neut # (Auto) Lymph # (Auto) Garvin # (Auto) Eos # (Auto) Baso # (Auto) Total Counted Neutrophils % (Manual) Lymphocytes % (Manual) Monocytes % (Manual) Eosinophils % (Manual) Platelet Estimate Giant Platelets RBC Morphology VBG pH VBG pCO2 VBG pO2 VBG HCO3 VBG Total CO2 VBG O2 Saturation VBG Base Excess VBG Lactic Acid Sodium Potassium Chloride Carbon Dioxide Anion Gap BUN Creatinine Estimated Creat Clear Estimated GFR Est GFR ( Amer) Glucose POC Glucose 265 H Lactate Calcium Magnesium Total Bilirubin AST ALT Alkaline Phosphatase Troponin I < 0.01 NT-Pro-B Natriuret Pep Total Protein Albumin Globulin Albumin/Globulin Ratio Triglycerides Cholesterol LDL Cholesterol Direct VLDL Cholesterol HDL Cholesterol Cholesterol/HDL Ratio Procalcitonin TSH Free T4 Index Thyroxine (T4) T3 Uptake Digoxin Chlamy pneumoniae PCR Not detected Adenovirus (PCR) Not detected B. pertussis DNA (PCR) Not detected Coronavirus OC43 (PCR) Not detected Coronavirus HKU1 (PCR) Not detected Coronavirus 229E (PCR) Not detected SARS-CoV-2 (PCR) Not detected Coronavirus NL63 (PCR) Not detected Human Metapneumovir PCR Not detected Influenza A (H1) PCR Not detected Influ A (H1N1/09) PCR Not detected Influenza A (H3) PCR Not detected Influenza Type A (PCR) Not detected Influenza Type B (PCR) Not detected M. pneumoniae (PCR) Not detected Parainfluenza 1 (PCR) Not detected Parainfluenza 2 (PCR) Not detected Parainfluenza 3 (PCR) Not detected Parainfluenza 4 (PCR) Not detected RSV (PCR) Not detected Entero/Rhino (PCR) Not detected 11/11/24 11/11/24 18:39 15:21 WBC 10.3 RBC 6.13 Hgb 16.9 Hct 51.4 MCV 83.8 MCH 27.6 MCHC 32.9 RDW 15.1 Plt Count 377 MPV 9.1 Neut % (Auto) 85.5 H Lymph % (Auto) 4.7 L Garvin % (Auto) 7.1 Eos % (Auto) 0.3 Baso % (Auto) 1.0 Neut # (Auto) 8.8 H Lymph # (Auto) 0.5 L Garvin # (Auto) 0.7 Eos # (Auto) 0.0 Baso # (Auto) 0.1 Total Counted 100 Neutrophils % (Manual) 84 H Lymphocytes % (Manual) 8 L Monocytes % (Manual) 7 Eosinophils % (Manual) 1 Platelet Estimate Normal Giant Platelets 1+ RBC Morphology Normal VBG pH 7.35 VBG pCO2 49.3 VBG pO2 46.8 H VBG HCO3 26.7 VBG Total CO2 28.2 H VBG O2 Saturation 81.1 H VBG Base Excess 1.2 VBG Lactic Acid 3.0 H Sodium 132 L Potassium 5.6 H Chloride 98 Carbon Dioxide 28 Anion Gap 11.6 BUN 37 H Creatinine 0.70 Estimated Creat Clear 74 Estimated GFR 112 Est GFR ( Amer) 135 Glucose 299 H POC Glucose Lactate 1.6 Calcium 9.4 Magnesium 2.3 Total Bilirubin 1.0 AST 33 ALT 33 Alkaline Phosphatase 31 L Troponin I < 0.01 < 0.01 NT-Pro-B Natriuret Pep 651 H Total Protein 7.0 Albumin 4.6 Globulin 2.4 Albumin/Globulin Ratio 1.9 H Triglycerides Cholesterol LDL Cholesterol Direct VLDL Cholesterol HDL Cholesterol Cholesterol/HDL Ratio Procalcitonin 0.073 TSH 0.81 Free T4 Index 3.4 L Thyroxine (T4) 8.8 T3 Uptake 39 Digoxin 0.60 Chlamy pneumoniae PCR Adenovirus (PCR) B. pertussis DNA (PCR) Coronavirus OC43 (PCR) Coronavirus HKU1 (PCR) Coronavirus 229E (PCR) SARS-CoV-2 (PCR) Coronavirus NL63 (PCR) Human Metapneumovir PCR Influenza A (H1) PCR Influ A (H1N1/09) PCR Influenza A (H3) PCR Influenza Type A (PCR) Influenza Type B (PCR) M. pneumoniae (PCR) Parainfluenza 1 (PCR) Parainfluenza 2 (PCR) Parainfluenza 3 (PCR) Parainfluenza 4 (PCR) RSV (PCR) Entero/Rhino (PCR) Preliminary micro results at discharge 11/11/24 21:50 Sputum Culture - Preliminary Sputum - Expectorated Sputum DS: Diagnosis Discharge Diagnosis (1) Acute on chronic HFrEF (heart failure with reduced ejection fraction): Status: Acute Code(s): I50.23 - Acute on chronic systolic (congestive) heart failure (2) Atrial fibrillation with rapid ventricular response: Status: Acute Code(s): I48.91 - Unspecified atrial fibrillation (3) CAD in [place] artery: Status: Acute Code(s): I25.10 - Atherosclerotic heart disease of [place] coronary artery without angina pectoris (4) Atrial fibrillation: Status: Chronic Code(s): I48.91 - Unspecified atrial fibrillation Qualifiers: Atrial fibrillation type: chronic Qualified Code(s): I48.2 - Chronic atrial fibrillation (5) Hypertension: Status: Acute Code(s): I10 - Essential (primary) hypertension Qualifiers: Hypertension type: primary hypertension Qualified Code(s): I10 - Essential (primary) hypertension (6) HLD (hyperlipidemia): Status: Chronic Code(s): E78.5 - Hyperlipidemia, unspecified Qualifiers: Hyperlipidemia type: mixed hyperlipidemia Qualified Code(s): E78.2 - Mixed hyperlipidemia (7) Pacemaker: Status: Chronic Code(s): Z95.0 - Presence of cardiac pacemaker (8) Chronic obstructive lung disease: Status: Chronic Code(s): J44.9 - Chronic obstructive pulmonary disease, unspecified Qualifiers: COPD type: emphysema Emphysema type: other Qualified Code(s): J43.8 - Other emphysema Meds Home Medications and Allergies Home Medications ?Medication ?Instructions ?Recorded ?Confirmed ?Type dexlansoprazole 60 mg 60 mg PO DAILY 10/17/17 11/23/24 History capsule,biphase delayed release (Dexilant) diphenhydramine HCl 25 mg tablet 25 mg PO Q4-6H PRN Allergies 10/17/17 11/23/24 History (Benadryl Allergy) gabapentin 800 mg tablet 800 mg PO TID 10/17/17 11/23/24 History glimepiride 2 mg tablet 2 mg PO BID 10/17/17 11/23/24 History ibuprofen 800 mg tablet 800 mg PO TID 10/17/17 11/23/24 History tamsulosin 0.4 mg capsule (Flomax) 0.4 mg PO HS 10/17/17 11/23/24 History loratadine 10 mg tablet (Claritin) 10 mg PO DAILY Allergy symptoms 02/13/18 11/23/24 History finasteride 5 mg tablet 5 mg PO DAILY 05/11/20 11/23/24 History aspirin 81 mg tablet,delayed 81 mg PO DAILY 10/18/21 11/23/24 History release semaglutide 1 mg/dose (4 mg/3 mL) 2 mg SQ WEEKLY Diabetes 10/18/21 11/23/24 History subcutaneous pen injector nitroglycerin 0.4 mg sublingual 0.4 mg sublingual Q5M PRN chest 01/22/22 11/23/24 Rx tablet pain #20 tabs sildenafil 100 mg tablet 100 mg PO DAILY PRN sexual 03/16/22 11/23/24 Rx activity #20 tabs budesonide 160 mcg-glycopyr 9 2 puff inhalation BID COPD 12/10/22 11/23/24 History mcg-formot 4.8 mcg/actuation HFA inhaler (Breztri Aerosphere) digoxin 125 mcg (0.125 mg) tablet 125 mcg PO DAILY 12/10/22 11/23/24 History sacubitril 24 mg-valsartan 26 mg 1 tab PO BID #60 tabs 05/16/23 11/23/24 Rx tablet (Entresto) rivaroxaban 20 mg tablet (Xarelto) 20 mg PO PM Atrial fibrillation 07/14/24 11/23/24 Rx #90 tabs albuterol sulfate 90 mcg/actuation 2 inh inhalation Q4HP PRN 11/12/24 11/23/24 History aerosol inhaler Shortness Of Breath alprazolam 1 mg tablet 1 mg PO QID 11/12/24 11/23/24 History empagliflozin 10 mg tablet 10 mg PO DAILY 11/12/24 11/23/24 History (Jardiance) metoprolol tartrate 50 mg tablet 50 mg PO BID 30 days #60 tabs 11/12/24 11/23/24 Rx oxycodone-acetaminophen 10 mg-325 1 tab PO 5XDAY Pain 11/12/24 11/23/24 History mg tablet ropinirole 2 mg tablet 2 mg PO HSP PRN restless legs 11/12/24 11/23/24 History spironolactone 25 mg tablet 25 mg PO DAILY #30 tabs 11/12/24 11/23/24 Rx rosuvastatin 20 mg tablet 20 mg PO DAILY #90 tabs 11/23/24 11/23/24 Rx torsemide 20 mg tablet See Rx Instructions PO .COMPLEX 11/23/24 11/23/24 History New Prescriptions to Start Prescriptions: metoprolol tartrate Orion Will spironolactone Orion Will Allergies Allergy/AdvReac Type Severity Reaction Status Date / Time Penicillins (PENICILLINS) Allergy Intermediate I-HIVES Verified 11/23/24 14:20 Discharge Plan Disposition Patient Disposition: Home, Self-Care Condition: Fair Follow up Plan Follow up with: Sanjuanita Jackson APRN [Nurse Practitioner] - 11/17/24 11:15 am Prescriptions/Medication Reconciliation: New metoprolol tartrate 50 mg Tablet 50 mg PO BID 30 Days Qty: 60 0RF spironolactone 25 mg tablet 25 mg PO DAILY Qty: 30 0RF Continued loratadine [Claritin] 10 mg tablet 10 mg PO DAILY finasteride 5 mg tablet 5 mg PO DAILY nitroglycerin 0.4 mg tablet, sublingual 0.4 mg SL Q5M PRN (Reason: chest pain) Qty: 20 0RF Rx Instructions: do not exceed 3 doses per episode Entresto 24-26 mg tablet 1 tab PO BID Qty: 60 5RF diphenhydramine HCl [Benadryl Allergy] 25 mg tablet 25 mg PO Q4-6H PRN (Reason: Allergies) dexlansoprazole [Dexilant] 60 mg capsule,biphase delayed releas 60 mg PO DAILY tamsulosin [Flomax] 0.4 mg capsule,extended release 24hr 0.4 mg PO HS gabapentin 800 mg tablet 800 mg PO TID glimepiride 2 mg tablet 2 mg PO BID ibuprofen 800 mg tablet 800 mg PO TID sildenafil 100 mg tablet 100 mg PO DAILY PRN (Reason: sexual activity) Qty: 20 5RF Rx Instructions: administer 30 minutes to 4 hours before activity Xarelto 20 mg tablet 20 mg PO PM Qty: 90 3RF Rx Instructions: Take with evening meal digoxin 125 mcg (0.125 mg) tablet 125 mcg PO DAILY Patient Comments: TAKE 1 TABLET BY MOUTH ONCE A DAY. Breztri Aerosphere 160-9-4.8 mcg/actuation HFA aerosol inhaler 2 puff INHALATION BID aspirin 81 MG tablet,delayed release (DR/EC) 81 mg PO DAILY semaglutide 1 MG/0.75 ML pen injector 2 mg SQ WEEKLY alprazolam 1 mg tablet 1 mg PO QID oxycodone-acetaminophen 10-325 mg tablet 1 tab PO 5XDAY ropinirole 2 mg tablet 2 mg PO HSP PRN (Reason: restless legs) albuterol sulfate 90 mcg/actuation HFA aerosol inhaler 2 inh INHALATION Q4HP PRN (Reason: Shortness Of Breath) Jardiance 10 mg tablet 10 mg PO DAILY Discontinued spironolactone 100 mg tablet 100 mg PO DAILY carvedilol 3.125 mg tablet 3.125 mg PO BID No Action torsemide 20 mg tablet See Rx Instructions PO .COMPLEX Rx Instructions: 2 tabs in the am and 1 tab in the afternoon orally; rosuvastatin 20 mg tablet 20 mg PO DAILY Qty: 90 3RF Problem Reconciliation Problems Reviewed?: Yes Patient Discharge Instructions Patient Instructions: DI for Atrial Fibrillation Print Language: [place]i Providers Primary Care Provider: Zackery Meadows Admit Provider: Orion Will Attending Provider: Orion Will
--- NOTE | 2024-11-12 12:51 | HMH.PHAINT1 ---
Pharmacy Intervention Comments: home medication list verified using list from outpatient pharmacy, pt and interview and cardiology office
--- NOTE | 2024-11-12 13:08 | PC.NURSE ---
Clinic pharmacy contacted about Rx @ this time
--- NOTE | 2024-11-16 11:09 | SW/DCPLANNER ---
Spoke with patient on the phone. Patient stated that he is doing well. Patient stated that he is aware of his upcoming appointments. Patient stated that he was able to get his medicine picked up from clinic pharmacy. Patient stated that he has no concerns or questions at this time. Zeke Fletcher
== END 2024-11-12 14:10 | disposition home or self-care (01) ==
LOC: ER 17:14 → 2ND 17:24
PROVIDERS: Nurse Practitioner Family; Physician Assistant; Admitting Provider Student in an Organized Health Care Education/Training Program; Emergency Provider Student in an Organized Health Care Education/Training Program; PCP Family Medicine; Visit Provider Student in an Organized Health Care Education/Training Program
DX: I48.20 Chronic atrial fibrillation, unspecified (principal); I11.0 Hypertensive heart disease with heart failure; I50.23 Acute on chronic systolic (congestive) heart failure; I25.10 Atherosclerotic heart disease of native coronary artery without angina pectoris; E78.2 Mixed hyperlipidemia; Z95.0 Presence of cardiac pacemaker; J43.8 Other emphysema; Z98.84 Bariatric surgery status; Z88.0 Allergy status to penicillin; Z79.899 Other long term (current) drug therapy; Z79.82 Long term (current) use of aspirin; K21.9 Gastro-esophageal reflux disease without esophagitis
CPT/HCPCS: 0223U; 36415; 71046; 80053; 80061; 80162; 82803; 82962; 83605; 83735; 83880; 84145; 84436; 84443; 84479; 84484; 85007; 85025; 85027; 87070; 87077; 87186; 87205; 87633; 93005; 93306; 94640; 99291; G0378; J0696; J1171; J1650; J1938; J3475; J7050

== ENCOUNTER 2024-11-23 12:03 | Outpatient (CLI) | payer MEDICARE, MEDICAID, SELFPAY ==
--- OUTSIDE RECORDS SUMMARY | 2024-11-23 12:05 | XMS_ITS | Data Portability ---
Author Organization [facility], [facility] Address [address] [place] [address] Care Team Providers Care Portfolio Manager Name Role Phone JUANCARLOS RICARDO Primary Care Provider Assessment No assessment recorded. Plan of Treatment Reminders Order Date Submit Date Provider Last Modified By Organization Details Last Modified Time Details Appointments None recorde d. Lab surgica l patholo gy study 2024 025 [facility], [facility] [place], [address], 5 10:46:05 Referral None recorde d. Procedures None recorde d. Surgeries None recorde d. Imaging None recorde d. Medication Orders clobeta ember 0.05 % topical ointmen t 2024 025 [facility], [address] [place] [address], [id number], 12:41:15 Patient TargetsNo targets recorded. Patient InstructionsNo instructions recorded. Reason for Referral None Reported. 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 The histo logy would favor a drug react ion. Clini tony histo ry and photo graph s were revie wed. SOURC E OF SPECI MEN: SKIN, L VOLAR FOREA RM CLINI TONY INFOR MATIO N: R/O: ACD VS BRP VS AD. Gross Descr iptio n: The speci men consi sted of a singl e wheatley fragm ent which measu red 3 x 3 x 4 mm. All is submi tted in toto in one casse tte. Micro scopi c Descr iptio n: The epide rmis is uninf lamed . Spong iosis is not consp icuou s. In the super ficia l dermi s is a mild lymph ocyti c infla mmato ry infil trate . JACQUE CURRIE MD Janay d Out Date: 08/10 10:45 1 Not Available [facility] [address] [place], [address], 08/10/2024 10:46:05 Result Notes None recorded. Procedures Surgical History Date Name Laterality Status Provider Name and Address Organization Details Recorded Time 08/06/2024 [facility] 08/06/2024 11:35:40 Imaging Results None recorded. Procedure Notes None recorded. Medical Equipment None Reported. Allergies Allergen ID Allergen Name Allergen Category Reaction Reaction Severity Criticality Documentation Date Start Date Code Code System Note Provider Name and Address Organization Details Recorded Time [id number] Product containin g penicilli n (product) medicatio n Not available Not available Not available 08/06/2024 [id number] 11:10:44 Medications Name Sig Start Date Stop Date Status Note LastModified by Organization Details LastModified Time clobetasol 0.05 % topical ointment apply a thin layer to the AA twice a day x 2 weeks 2024 active Not Available Not Available Not Avai lable atorvastatin active Not Available Not Available Not Available oxycodone active Not Available Not Margaret ilable Not Available finasteride active Not Available Not A vailable Not Available tamsulosin active Not Available Not Av ailable Not Available digoxin active Not Available Not Avail able Not Available ipratropium bromide active Not Available Not Available Not Available prednisolone active Not Available Not Available Not Available ropinirole active Not Available Not Av ailable Not Available meclizine active Not Available Not Margaret ilable Not Available albuterol sulfate active Not Available Not Available Not Available ibuprofen active Not Available Not Margaret ilable Not Available torsemide active Not Available Not Margaret ilable Not Available carvedilol active Not Available Not Av ailable Not Available alprazolam active Not Available Not Av ailable Not Available fluorometholone active Not Available N ot Available Not Available prednisone active Not Available Not Av ailable Not Available spironolactone active Not Available No t Available Not Available doxycycline hyclate active Not Available Not Available Not Available sildenafil active Not Available Not Av ailable Not Available fluticasone propionate active Not Available Not Available N ot Available glimepiride active Not Available Not A vailable Not Available gabapentin active Not Available Not Av ailable Not Available ondansetron active Not Available Not A vailable Not Available tadalafil active Not Available Not Margaret ilable Not Available ranolazine active Not Available Not Av ailable Not Available dexlansoprazole active Not Available N ot Available Not Available Xarelto active Not Available Not Avail able Not Available Jardiance active Not Available Not Margaret ilable Not Available Entresto active Not Available Not Avai lable Not Available Ozempic active Not Available Not Avail able Not Available Vitals None Recorded Social History None recorded. Functional Status None recorded. Mental Status None recorded. Family History Nothing Reported. Medical History No medical history recorded. Past Encounters Encounter ID Performer Location Encounter Start Date Encounter Closed Date Diagnosis/Indication Diagnosis SNOMED-CT Code Diagnosis ICD10 Code Diagnosis Note [id number] JUAN Ennis, MELA DAK [facility] [address] [facility] [place] [address] 08/06/2024 10:57:18 08/06/2024 11:50:38 Generalized rash 060929493 R21 New rash that started 3-4 weeks agoReports its extremely itchy and prieto. No neck injury or whiplash history.Us es Dial body wash. Denies using moisturize rsDenies any oral medication s changes in the last 3 monthsHas been taking benadryl which mildly helps with itch or burning.He does report this rash moves around and has a history of being on the other arm, though never as bad as this has been.No known enviroment al risks or chemical exposures - he is disabled and has no hobbies with exposures. Consulted with Dr. Lowry by phone today.Rec doing a punch bx today to see if we can get a definitive diagnosis. - Will send clobetasol 0.05% ointment to use BID x 2 weeks. Prolonged use of topical steroid may cause skin thinning, discolorat ion, stretch prabhakar, and/or acne. Skin folds and facial skin are even more prone to such side effects. Only use the steroids as directed.- Rec sleeping in gloves to keep from scratching the skin- Stop using Nystatin and TAC cream given by the ED.- Switch your dial soap to a unscented/ unfragranc ed soap. (Vanicream products recommende d).- Do not apply any topicals outside of what we have recommende d.- Will schedule follow up pending biopsy results. Neoplasm o f uncertain behavior of skin 00696359 D48.5 Recommend punch biopsy. Risks, benefit, and procedure discussed with patient. Consent obtained. Health Concerns Section Related Observation LastModified by Organization Detai ls LastModified Time None Recorded Concern Status LastModified by Organization Details LastModified Time None Recorded Advance Directives Directive None Recorded Payers Insurance Date Sequence Insurance Name Policy Number Policy Jay Covered Member ID Jay Member ID Guarantor Name 10/30/2024 1 [facility] (MEDICARE REPLACEMENT/A DVANTAGE - HMO) [id number] Hugh King [id number] Hugh King Notes Date Note Type Note Provider Name and Address Organization Details Recorded Time 08/06/2024 text/html General Rash/Ski n LesionReported bypatient.Notes:Missy ent is here for a rash - location(s): Upper body - duration: 3 weeks - Comes and goes - symptoms: Itches bad, bleeds - treatments tried: Steriods and benadryl JUAN AHN, RN CHARGE [address] [place], [address], [facility] 08/06/2024 12:45:01
--- OUTSIDE RECORDS SUMMARY | 2024-11-23 12:05 | XMS_ITS | Data Portability ---
Author Organization [facility] [place] Address [address] [place] [address] Care Team Providers Care Cost Consultant Name Role Phone JUANCARLOS RICARDO Primary Care Provider Assessment No assessment recorded. Plan of Treatment Reminders Order Date Submit Date Provider Last Modified By Organization Details Last Modified Time Details Appointments OV EST 15 2024 10:15A M Kirby Church Jr, MD Not available Not available Not available Lab urinalysi s, dipstick 2023 [email or web address], [address], 06/05/2024 12:59:17 PSA, serum or plasma 2023 [email or web address], [address], 06/05/2024 12:59:17 urinalysi s, dipstick 2022 [email or web address], [address], 05/29/2023 13:28:02 Referral None recorded. Procedures None recorded. Surgeries None recorded. Imaging XR, foot 2023 024 jessica Chung [facility], [address] [place] [address], [address], 09/04/2023 11:11:09 XR, cervical spine 2023 024 [email or web address] [facility], [address] [place] [address], [address], 09/04/2023 11:11:09 Medication Orders sildenafi l 100 mg tablet 2023 024 [facility], [address] [place] [address], [address], 06/12/2024 13:26:40 tamsulosi n 0.4 mg capsule 2023 024 [facility], [address] [place] [address], [address], 11/04/2024 08:40:04 finasteri de 5 mg tablet 2023 024 [facility], [address] [place] [address], [address], 06/05/2024 15:05:36 sildenafi l 100 mg tablet 2022 023 [facility], [address] [place], [address], 05/29/2023 13:46:17 tamsulosi n 0.4 mg capsule 2022 023 [facility] [address], [address] [place], [address], 05/29/2023 13:42:28 finasteri de 5 mg tablet 2022 023 [facility] [address], [address] [place], [address], 05/29/2023 13:42:27 Patient TargetsNo targets recorded. Patient InstructionsNo instructions recorded. Reason for Referral None Reported. Results Created Date Observation Date Name Description Value Unit Range Abnormal Flag Note LastModifiedBy Organization Detail LastModifiedTime 05/29/20 23 05/29/2023 urina lysis , dipst ick Leukocytes (reference range) negati ve Not Available [address], [address], 05/29/2023 13:17:10 05/29/20 23 05/29/2023 urina lysis , dipst ick Nitrite (reference range:) negati ve Not Available [address], [address], 05/29/2023 13:17:10 05/29/20 23 05/29/2023 urina lysis , dipst ick Urobilinogen (reference range) 0.2 Not Available [address], [address], 05/29/2023 13:17:10 05/29/20 23 05/29/2023 urina lysis , dipst ick Protein (reference range) negati ve Not Available [address], [address], 05/29/2023 13:17:10 05/29/20 23 05/29/2023 urina lysis , dipst ick pH (reference range 5-8.5) 5.5 Not Available [address], [address], 05/29/2023 13:17:10 05/29/20 23 05/29/2023 urina lysis , dipst ick Blood (reference range:) negati ve Not Available [address], [address], 05/29/2023 13:17:10 05/29/20 23 05/29/2023 urina lysis , dipst ick Specific Umbarger (reference range) 1.020 Not Available [address], [address], 05/29/2023 13:17:10 05/29/20 23 05/29/2023 urina lysis , dipst ick Ketone (reference range) negati ve Not Available [address], [address], 05/29/2023 13:17:10 05/29/20 23 05/29/2023 urina lysis , dipst ick Bilirubin (reference range) negati ve Not Available [address], [address], 05/29/2023 13:17:10 05/29/20 23 05/29/2023 urina lysis , dipst ick Glucose (reference range) 1000 Not Available [address], [address], 05/29/2023 13:17:10 09/09/19 24 09/09/2023 PT PTT PT w/INR 11.3 secon ds 9.9-11 .7 Not Available [facility] (Lab) [address] [facility], [place], [address], 09/09/2023 23:10:07 09/09/19 24 09/09/2023 PT PTT INR 1.1 0.9-1. 1 Not Available [facility] (Lab) [address] [facility] [place], [address], 09/09/2023 23:10:07 09/09/19 24 09/09/2023 PT PTT APTT 34.1 secon ds 20-30 high Not Available [facility] (Lab) [address] [facility] [place], [address], 09/09/2023 23:10:07 09/09/19 24 09/09/2023 LACTI C ACID lactic acid 1.1 mmol/ L 0.4-1. 9 Not Available [facility] (Lab) [address] [facility] [place], [address], 09/09/2023 23:12:12 09/09/19 24 09/09/2023 CBC WITH AUTO DIFF WBC 9.4 10 4.5-11 .5 Not Available [facility] (Lab) [address] [facility] [place], [address], 09/09/2023 23:22:28 09/09/19 24 09/09/2023 CBC WITH AUTO DIFF RBC 5.18 10 4.60-6 .00 Not Available [facility] (Lab) [address] [facility] [place], [address], 09/09/2023 23:22:28 09/09/19 24 09/09/2023 CBC WITH AUTO DIFF hemoglobin 14.2 g/dL 14.0-1 8.0 Not Available [facility] (Lab) [address] [facility] [place], [address], 09/09/2023 23:22:28 09/09/19 24 09/09/2023 CBC WITH AUTO DIFF hematocrit 44.1 % 40.0-5 4.0 Not Available [facility] (Lab) [address] [place] [address] [place], [address], 09/09/2023 23:22:28 09/09/19 24 09/09/2023 CBC WITH AUTO DIFF MCV 85.1 fL 80-100 Not Available [facility] (Lab) [address] [facility] [place], [address], 09/09/2023 23:22:28 09/09/19 24 09/09/2023 CBC WITH AUTO DIFF MCH 27.4 pg 26-32 Not Available [facility] (Lab) [address] [facility] [place], [address], 09/09/2023 23:22:28 09/09/19 24 09/09/2023 CBC WITH AUTO DIFF MCHC 32.2 g/dL 32-36 Not Available [facility] (Lab) [address] [facility] [place], [address], 09/09/2023 23:22:28 09/09/19 24 09/09/2023 CBC WITH AUTO DIFF RDW 16.3 % 11.5-1 4.5 high Not Available [facility] (Lab) [address] [facility] [place], [address], 09/09/2023 23:22:28 09/09/19 24 09/09/2023 CBC WITH AUTO DIFF platelet count 390 10 150-45 0 Not Available [facility] (Lab) [address] [facility] [place], [address], 09/09/2023 23:22:28 09/09/19 24 09/09/2023 CBC WITH AUTO DIFF mean platelet volume 9.1 fL 6.8-10 .2 Not Available [facility] (Lab) [address] [facility], [place], [address], 09/09/2023 23:22:28 09/09/19 24 09/09/2023 CBC WITH AUTO DIFF manual differential SCAN OK Not Available [facility] (Lab) [address] [facility] [place], [address], 09/09/2023 23:22:28 09/09/19 24 09/09/2023 CBC WITH AUTO DIFF ne% 69.3 % 50-70 Not Available [facility] (Lab) [address] [facility] [place], [address], 09/09/2023 23:22:28 09/09/19 24 09/09/2023 CBC WITH AUTO DIFF lymphs 16.9 % 18-42 low Not Available [facility] (Lab) [address] [facility] [place], [address], 09/09/2023 23:22:28 09/09/19 24 09/09/2023 CBC WITH AUTO DIFF MO% 8.9 % 2-11 Not Available [facility] (Lab) [address] [facility] [place], [address], 09/09/2023 23:22:28 09/09/19 24 09/09/2023 CBC WITH AUTO DIFF eo% 2.9 % 1-3 Not Available [facility] (Lab) [address] [facility] [place], [address], 09/09/2023 23:22:28 09/09/19 24 09/09/2023 CBC WITH AUTO DIFF ba% 2.0 % 0.0-2. 0 Not Available [facility] (Lab) [address] [facility] [place], [address], 09/09/2023 23:22:28 09/09/19 24 09/09/2023 CBC WITH AUTO DIFF neutrophils (absolute) 6.5 K/uL 2.0-6. 9 Not Available [facility] (Lab) [address] [facility] [place], [address], 09/09/2023 23:22:28 09/09/19 24 09/09/2023 CBC WITH AUTO DIFF lymphocytes (absolute) 1.6 K/uL 0.6-3. 4 Not Available [facility] (Lab) [address] [facility] [place], [address], 09/09/2023 23:22:28 09/09/19 24 09/09/2023 CBC WITH AUTO DIFF monocytes (absolute) 0.8 K/uL 0.0-0. 9 Not Available [facility] (Lab) [address] [facility] [place], [address], 09/09/2023 23:22:28 09/09/19 24 09/09/2023 CBC WITH AUTO DIFF eosinophils (absolute) 0.3 K/uL 0.0-0. 7 Not Available [facility] (Lab) [address] [facility] [place], [address], 09/09/2023 23:22:28 09/09/19 24 09/09/2023 CBC WITH AUTO DIFF basophils (absolute) 0.2 K/uL 0.0-0. 2 Not Available [facility] (Lab) [address] [facility] [place], [address], 09/09/2023 23:22:28 09/09/19 24 09/09/2023 TROPO SORIN I troponin I, high sensitive 5 pg/mL -<77 Not Available [facility] (Lab) [address] [place] [address] [place], [address], 09/09/2023 23:26:34 09/09/19 24 09/09/2023 TROPO SORIN I initial? YES yes/no /unk Not Available [facility] (Lab) [address] [place] [address] [place], [address], 09/09/2023 23:26:34 09/09/19 24 09/09/2023 MAGNE SIUM magnesium 2.1 mg/dL 1.8-2. 4 Not Available [facility] (Lab) [address] [place] [address] [place], [address], 09/09/2023 23:34:48 09/09/19 24 09/09/2023 TSH TSH 2.78 uIU/m L 0.3600 -3.740 0 Not Available [facility] (Lab) [address] [place] [address] [place], [address], 09/09/2023 23:34:49 09/09/19 24 09/09/2023 COMPR EHENS CHAR METAB OLIC PANEL sodium 137 mmol/ L 136-14 5 Not Available [facility] (Lab) [address] [place] [address] [place], [address], 09/09/2023 23:34:50 09/09/19 24 09/09/2023 COMPR EHENS CHAR METAB OLIC PANEL potassium 4.2 mmol/ L 3.5-5. 1 Not Available [facility] (Lab) [address] [place] [address] [place], [address], 09/09/2023 23:34:50 09/09/19 24 09/09/2023 COMPR EHENS CHAR METAB OLIC PANEL chloride 98 mmol/ L 98.0-1 07.0 Not Available [facility] (Lab) [address] [facility] [place], [address], 09/09/2023 23:34:50 09/09/19 24 09/09/2023 COMPR EHENS CHAR METAB OLIC PANEL total CO2 30 mmol/ L 21-32 Not Available [facility] (Lab) [address] [facility] [place], [address], 09/09/2023 23:34:50 09/09/19 24 09/09/2023 COMPR EHENS CHAR METAB OLIC PANEL anion gap 13.2 mmol/ L 5.0-15 .0 Not Available [facility] (Lab) [address] [facility] [place], [address], 09/09/2023 23:34:50 09/09/19 24 09/09/2023 COMPR EHENS CHAR METAB OLIC PANEL glucose 160 mg/dL 70-120 high Not Available [facility] (Lab) [address] [facility] [place], [address], 09/09/2023 23:34:50 09/09/19 24 09/09/2023 COMPR EHENS CHAR METAB OLIC PANEL BUN 28 mg/dL 7-18 high Not Available [facility] (Lab) [address] [facility] [place], [address], 09/09/2023 23:34:50 09/09/19 24 09/09/2023 COMPR EHENS CHAR METAB OLIC PANEL creatinine 1.1 mg/dL 0.8-1. 3 Not Available [facility] (Lab) [address] [facility] [place], [address], 09/09/2023 23:34:50 09/09/19 24 09/09/2023 COMPR EHENS CHAR METAB OLIC PANEL BUN/creatini ne ratio 25.5 ratio 9-21 high Not Available [facility] (Lab) [address] [facility] [place], [address], 09/09/2023 23:34:50 09/09/19 24 09/09/2023 COMPR EHENS CHAR METAB OLIC PANEL estimated glom filtration rate >60 mL/mi n 60.0- Not Available [facility] (Lab) [address] [facility] [place], [address], 09/09/2023 23:34:50 09/09/19 24 09/09/2023 COMPR EHENS CHAR METAB OLIC PANEL calcium 8.8 mg/dL 8.6-9. 8 Not Available [facility] (Lab) [address] [facility] [place], [address], 09/09/2023 23:34:50 09/09/19 24 09/09/2023 COMPR EHENS CHAR METAB OLIC PANEL bilirubin, total 0.6 mg/dL 0.2-1. 0 USE OF THIS ASSAY IS NOT RECOM WARREN D FOR PATIE NTS UNDER GOING TREAT MENT WITH ELTRO MBOPA G DUE TO THE POTEN TIAL FOR FALSE LY ELEVA FRIDA RESUL TS. Not Available [facility] (Lab) [address] [facility] [place], [address], 09/09/2023 23:34:50 09/09/19 24 09/09/2023 COMPR EHENS CHAR METAB OLIC PANEL AST (SGOT) 16 IU/L 15-37 Not Available [facility] (Lab) [address] [facility] [place], [address], 09/09/2023 23:34:50 09/09/19 24 09/09/2023 COMPR EHENS CHAR METAB OLIC PANEL ALT (SGPT) 26 IU/L 12-78 Not Available [facility] (Lab) [address] [facility] [place], [address], 09/09/2023 23:34:50 09/09/19 24 09/09/2023 COMPR EHENS CHAR METAB OLIC PANEL alk phos 38 IU/L 46-116 low Not Available [facility] (Lab) [address] [facility] [place], [address], 09/09/2023 23:34:50 09/09/19 24 09/09/2023 COMPR EHENS CHAR METAB OLIC PANEL total protein 7.5 g/dL 6.4-8. 2 Not Available [facility] (Lab) [address] [facility] [place], [address], 09/09/2023 23:34:50 09/09/19 24 09/09/2023 COMPR EHENS CHAR METAB OLIC PANEL albumin 3.8 g/dL 3.4-5. 0 Not Available [facility] (Lab) [address] [facility] [place], [address], 09/09/2023 23:34:50 09/09/19 24 09/09/2023 COMPR EHENS CHAR METAB OLIC PANEL globulin 3.7 g/dL 1.3-3. 5 high Not Available [facility] (Lab) [address] [facility] [place], [address], 09/09/2023 23:34:50 09/09/19 24 09/09/2023 COMPR EHENS CHAR METAB OLIC PANEL alb/glob ratio 1.0 ratio 1.0-3. 9 Not Available [facility] (Lab) [address] [facility] [place], [address], 09/09/2023 23:34:50 09/09/19 24 09/09/2023 COMPR EHENS CHAR METAB OLIC PANEL osmolality, calculated 283 mOsm/ kg 272-29 5 Not Available [facility] (Lab) [address] [facility] [place], [address], 09/09/2023 23:34:50 09/09/19 24 09/09/2023 DIGOX IN digoxin <0.2 NG/mL 0.9-2. 0 low Not Available [facility] (Lab) [address] [facility] [place], [address], 09/09/2023 23:47:15 06/03/20 24 06/03/2024 urina lysis , dipst ick Leukocytes (reference range) negati ve Not Available [address], [address], 06/03/2024 10:17:33 06/03/20 24 06/03/2024 urina lysis , dipst ick Nitrite (reference range:) negati ve Not Available [address], [address], 06/03/2024 10:17:33 06/03/20 24 06/03/2024 urina lysis , dipst ick Urobilinogen (reference range) 1 Not Available [address], [address], 06/03/2024 10:17:33 06/03/20 24 06/03/2024 urina lysis , dipst ick Protein (reference range) negati ve Not Available [address], [address], 06/03/2024 10:17:33 06/03/20 24 06/03/2024 urina lysis , dipst ick pH (reference range 5-8.5) 5.5 Not Available [address], [address], 06/03/2024 10:17:33 06/03/20 24 06/03/2024 urina lysis , dipst ick Blood (reference range:) negati ve Not Available [address], [address], 06/03/2024 10:17:33 06/03/20 24 06/03/2024 urina lysis , dipst ick Specific Umbarger (reference range) 1.020 Not Available [address], [address], 06/03/2024 10:17:33 06/03/20 24 06/03/2024 urina lysis , dipst ick Ketone (reference range) negati ve Not Available [address], [address], 06/03/2024 10:17:33 06/03/20 24 06/03/2024 urina lysis , dipst ick Bilirubin (reference range) negati ve Not Available [address], [address], 06/03/2024 10:17:33 06/03/20 24 06/03/2024 urina lysis , dipst ick Glucose (reference range) 1000 Not Available [address], [address], 06/03/2024 10:17:33 09/04/19 24 XR, foot No observ ation record ed. NEHAL [facility] [address], [address], 09/04/2023 10:41:51 09/04/19 24 XR, cervi tony spine No observ ation record ed. NEHAL [address], [address], 09/04/2023 10:42:02 09/09/19 24 09/09/2023 CT [facility] [address] [place] [address] Phone: Fax: Name: HUGH SANCHES Exam Date: 09/09/19 24 : 955 Age 68 years Gender : M Access ion: [id number] Physic ngoc: Stan Ellis ty: [facility] HSV: Outpat ient Exam: CT HEAD WO STROKE STAT CLINIC AL INDICA TION: Numbne ss Right Side, DIABET ES, HTN. Numbne ss of arm began around 5:30 tonigh t TECHNI QUE: Routin e noncon trast CT of the head. COMPAR CAN: CT 02/12/20 18 FINDIN GS: No acute intrac ranial abnorm ality. i??i?? Mildly low lying cerebe llar tonsil s noted. No eviden ce of acute hemorr mary jane or ischem ia. No mass, mass effect , or midlin e displa cement of struct ures. Normal ventri cular size and config uratio n. Patent basal cister ns. No displa mari or depres sed calvar ial fractu res.i? ?i??Pa ranasa l sinuse s clear. Right mastoi d effusi on. IMPRES SUDHIR: No acute intrac ranial abnorm ality. Electr onical ly Signed by: Saqib novoa MD All CT scans at [facility] are perfor med using dose optimi zation techni ques as approp riate to a perfor med exam includ ing the follow ing: Automa frida exposu re contro l Adjust ment of the mA and/or kV accord ing to patien t size (this includ es techni ques or standa rdized protoc ols for target ed exams where dose is matche d to indica tion / reason for exam; i.e. extrem ities or head) Use of iterat char recons tructi on techni que Dictat ed By: Saqib Akers Transc ribed By: Transc ribed On: 09/09/19 11:07 PM Electr onical ly signed by: Saqib Akers 09/09/19 Thank you for referr HUGH Leary to [facility]. Legall y authen ticate d by FER Conway 09-08 23:07: 28 CC'ed Logic: Orderi ng Provid er: ROBERT EPPERSON Attend ing Provid er: ROBERT EPPERSON Admitt ing Provid er: ROBERT EPPESRON ack1 [facility] (Imaging) [address] [place] [address] Dr, [place], [address], 11/08/2023 08:35:48 09/10/19 24 09/09/2023 cta neck wow [facility] [address] [place] [address] Phone: Fax: Name: HUGH SANCHES Exam Date: 09/09/19 : 955 Age 68 years Gender : M Access ion: [id number] Physic ngoc: Robert nStan Facili ty: [facility] HSV: Outpat ient Exam: CTA NECK WOW CLINIC AL INDICA TION: Numbne ss Right arm x 6 hours. HTN, A-fib, Previo us Smoker . Chest Pain TECHNI QUE: Contra st-enh anced CT angiog husam of the neck was obtain ed after admini strati on of intrav enous iodina frida contra st with multip lanar reform ations and maximu m intens ity projec tions. i??i?? In additi on 3-D projec tions were create d and review ed. COMPAR CAN: None. FINDIN GS: CTA Head: 2.5 mm slice thickn ess availa ble.i? ?i??Mi ld narrow ing of the distal P2/T3 segmen t of the left MANAGER MASS.i? ?i??Th ere is otherw ise normal vascul ar anatom y. There is no eviden ce of vascul ar injury , specif ically no arteri al stenos is, occlus ion, dissec tion, or pseudo aneury sm. The intrac ranial venous struct ures are also fairly well opacif ied and appear unrema rkable . CTA Neck: Mild athero sclero sis of the bilate ral caroti d bifurc ations .i??i? ?Moder ate to severe narrow ing of the diminu tive left verteb ral artery origin .i??i? ?Domin ant right verteb ral artery .i??i? ?There is otherw ise normal vascul ar anatom y. There is no eviden ce of vascul ar injury , specif ically no arteri al stenos is, occlus ion, dissec tion, or pseudo aneury sm. There is 0% stenos is of the ICA origin s by NASCET criter ia. Other: Nodula r left thyroi d lobe. IMPRES SUDHIR: Modera te to severe narrow ing of the diminu tive left verteb ral artery origin . Other mild chroni c change s as above. Nodula r left lobe of the thyroi d.i??i ??Tal mmend evalua tion with robert may outpat ient thyroi d ultras ound if not previo usly perfor med. Electr onical ly Signed by: Saqib novoa MD All CT scans at [facility] are perfor med using dose optimi zation techni ques as approp riate to a perfor med exam includ ing the follow ing: Automa frida exposu re contro l Adjust ment of the mA and/or kV accord ing to patien t size (this includ es techni ques or standa rdized protoc ols for target ed exams where dose is matche d to indica tion / reason for exam; i.e. extrem ities or head) Use of iterat char recons tructi on techni que Dictat ed By: Saqib Akers Transc ribed By: Transc ribed On: 09/10/19 24 1:51 AM Electr onical ly signed by: Saqib Akers 09/10/19 24 Legall y authen ticate d by FER Conway 09-09 01:51: 23 Thank you for referr ing HUGH SANCHES to [facility]. Legall y authen ticate d by FER Conway 09-09 01:51: 23 CC'ed Logic: Orderi ng Provid er: ROBERT EPPERSON Attend ing Provid er: ROBERT EPPERSON Referr ing Provid er: ROBERT EPPERSON Admitt ing Provid er: ROBERT EPPERSON [address] (Imaging) [address] [facility] [place], [address], 11/08/2023 08:35:49 09/10/19 24 09/09/2023 cta head wow [facility] al [address] [place] [address] Phone: Fax: Name: HUGH SANCHES Exam Date: 09/09/19 : 955 Age 68 years Gender : M Access ion: [id number] Physic ngoc: Stan Ellis Facili ty: [facility] HSV: Outpat ient Exam: CTA HEAD WOW CLINIC AL INDICA TION: Numbne ss right side TECHNI QUE: Contra st-enh anced CT angiog husam of the head was obtain ed after admini strati on of intrav enous iodina frida contra st with multip lanar reform ations and maximu m intens ity projec tions. i??i?? In additi on 3-D projec tions were create d and review ed. COMPAR CAN: None. FINDIN GS: CTA Head: 2.5 mm slice thickn ess availa ble.i? ?i??Di ffusel y stenot ic/hyp oplast ic distal left MANAGER MASS starti ng in the mid to distal P2 segmen t.i??i ??Ther e is otherw ise normal vascul ar anatom y. There is no eviden ce of vascul ar injury , specif ically no arteri al stenos is, occlus ion, dissec tion, or pseudo aneury sm. The intrac ranial venous struct ures are also fairly well opacif ied and appear unrema rkable . IMPRES SUDHIR: Diffus cristiane stenot ic/hyp oplast ic left MANAGER MASS starti ng in the mid to distal left P2 segmen t.i??i ??No other acute findin gs. Electr onical ly Signed by: Saqib novoa MD All CT scans at [facility] are perfor med using dose optimi zation techni ques as approp riate to a perfor med exam includ ing the follow ing: Automa frida exposu re contro l Adjust ment of the mA and/or kV accord ing to patien t size (this includ es techni ques or standa rdized protoc ols for target ed exams where dose is matche d to indica tion / reason for exam; i.e. extrem ities or head) Use of iterat char recons tructi on techni que Dictat ed By: Saqib Akers Transc ribed By: Transc ribed On: 09/10/19 3:08 AM Electr onical ly signed by: Saqib Akers 09/10/19 Thank you for referr ing HUGH SANCHES to [facility]. Legall y authen ticate d by FER Conway 09-09 03:08: 17 CC'ed Logic: Orderi ng Provid er: ROBERT EPPERSON Attend ing Provid er: ROBERT EPPERSON Referr ing Provid er: ROBERT EPPERSON Admitt ing Provid er: ROBERT EPPERSON [address] (Imaging) [address] [place] [address] [place], [address], 11/08/2023 08:35:50 09/10/19 24 09/09/2023 chest singl e view/ gokul ble [facility] [address] [place] [address] Phone: Fax: Name: HUGH SANCHES Exam Date: 09/09/19 : 955 Age 68 years Gender : M Access ion: [id number] Physic ngoc: Stan Ellis Facili ty: [facility] HSV: Outpat ient Exam: CHEST SINGLE VIEW/P ORTABL E AP PORTAB LE CHEST, 09/09/19 24 at 11:08 PM: CLINIC AL HISTOR Y: Chest pain with histor y of hypert ension and prior tobacc o use COMPAR CAN: AP chest, 12/10/19 23 FINDIN GS: i??The cardio medias tinal silhou ette is within normal limits with stable positi oning of the ventri cular pacema ker lead.i ?? There is bilate ral peribr onchia l thicke edwin. There has been interv al develo pment of bronch ioliti s in the right upper lobe and both infrah ilar region s. There is no pleura l fluid or focal consol idatio n. The right mirta l head is high riding compat ible with chroni c rotato r cuff tears IMPRES SUDHIR: 1. Stable findin gs of chroni c bronch itis with interv al develo pment of bilate ral bronch ioliti s, right greate r than left Dictat ed By: JENAE LAL ER, MICHELLE ER Transc ribed By: JENAE POSEY, MICHELLE ER Transc ribed On: 09/10/19 8:45 AM Electr onical ly signed by: MICHELLE EVANS ER 09/10/19 [facility] Legall y authen ticate d by Michelle posey MD 09-09 08:45: 18 CC'ed Logic: Orderi ng Provid er: ROBERT EPPERSON Attend ing Provid er: ROBERT EPPERSON Referr ing Provid er: ROBERT EPPERSON Admitt ing Provid er: ROBERT EPPERSON [email or web address] [facility] ([employer]) [address] [place] [address], [place], [address], 11/08/2023 08:35:49 Result Notes None recorded. Problems Name Problem SNOMED Code Status Onset Date Resolution Date Notes Provider Name and Address Organization Details Recorded Time Myocardial infarction 85774031 Active 2022 CARLITOS Vieyra - [facility] - [place] & [place] 3 12:46:46 Heart disease 42781736 Active 2022 CARLITOS Vieyra - [facility] - [place] & [place] 3 12:46:52 Heart failure 67525922 Active 2022 CARLITOS Vieyra - [facility] - [facility] [place] 3 12:47:04 Cardiac pacemaker in situ 544268133 Active 2022 CARLITOS Vieyra - [facility] - [place] & [place] 3 12:47:11 Acute stroke 1658969328704 04 Active 2022 Juaquin Starr null, [place] - [facility] & [place] 3 12:47:18 Diabetes mellitus 15324533 Active 2022 Juaquin Starr null, [place] - [facility] [place] 3 12:47:23 Kidney stone 38268173 Active 2022 Juaquin Starr null, [place] - [facility] - [facility] & [place] 3 12:47:30 Chronic obstructive pulmonary disease 94140000 Active 2022 Juaquin Starr null, [place] - [facility] - [facility] & [place] 3 12:47:35 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 Please review this document and add these problems to the patient's chart manually as needed. Problem Notes None recorded. Procedures Surgical History None recorded. Imaging Results Imaging Date Name Status LastModified by [facility] Details LastModified Time 09/04/2023 XR, foot completed NEHAL Chung [facility] [address] [place] [address], [phone], 09/04/2023 10:41:51 09/04/2023 XR, cervical spine completed NEHAL Chung [facility] [address], [address], 09/04/2023 10:42:02 09/09/2023 CT head wo stroke stat completed [address] (Imaging) [address] [place] [address] [place], [address], 11/08/2023 08:35:48 09/09/2023 cta neck wow completed [address] (Imaging) [address] [place] [address] [place], [address], 11/08/2023 08:35:49 09/09/2023 cta head wow completed [address] (Imaging) [address] [facility] [place], [address], 11/08/2023 08:35:50 09/09/2023 chest single view/portable completed [address] (Imaging) [address] [place] [address] [place], [address], 11/08/2023 08:35:49 Procedure Notes None recorded. Medical Equipment None Reported. Allergies Allergen ID Allergen Name Allergen Category Reaction Reaction Severity Criticality Documentation Date Start Date Code Code System Note Provider Name and Address Organization Details Recorded Time 306425 Product containin g penicilli n (product) medicatio n Not available Not available Not available 05/29/2023 26753 8001 SNOMED CARLITOS Vieyra [facility] & [place] 3 12:46:28 Medications Name Sig Start Date Stop Date Status Note LastModified by Organization Details LastModified Time nystatin 100,000 unit/mL oral suspension SIWSH AND SWALLOW 5ML FOUR TIMES DAILY active Not Available Not Available No t Available carvedilol 6.25 mg tablet TAKE 1 TABLET BY MOUTH TWICE DAILY WITH MEALS FOR HIGH BLOOD PRESSURE active Not Available Not Available No t Available prednisone 10 mg tablet TAKE 1 TABLET BY MOUTH TWO TIMES DAILY active Not Available Not Available Not Available doxycycline hyclate 100 mg capsule TAKE 1 CAPSULE BY MOUTH TWICE PER DAY active Not Available Not Available No t Available atorvastatin 20 mg tablet TAKE ONE TABLET BY MOUTH DAILY AT BEDTIME. active Not Available Not Available Not Available carvedilol 12.5 mg tablet TAKE 1 TABLET BY MOUTH TWICE DAILY WITH MEALS FOR HIGH BLOOD PRESSURE active Not Available Not Available No t Available ipratropium 0.5 mg-albuterol 3 mg (2.5 mg base)/3 mL nebulization soln INHALE 1 VIAL VIA NEBULIZER 4 TIMES DAILY active Not Available Not Available Not Available torsemide 20 mg tablet TAKE 2 TABLETS BY MOUTH DAILY active Not Available Not Available Not Available triamcinolon e acetonide 0.5 % topical cream APPLY CREAM TO AFFECTED AREA(S) TOPICALLY 2 TIMES PER DAY NEEDED active Not Available Not Available No t Available azithromycin 250 mg tablet TAKE 2 TABLETS BY MOUTH ON DAY ONE. THEN 1 TABLET DAILY ON DAYS 2-5. active Not Available Not Available No t Available ibuprofen 800 mg tablet TAKE 1 TABLET BY MOUTH THREE TIMES DAILY active Not Available Not Available Not Available alprazolam 1 mg tablet TAKE 1 TABLET BY MOUTH FOUR TIMES DAILY NEEDED active Not Available Not Available No t Available Nystop 100,000 unit/gram topical powder APPLY TO AFFECTED AREA FOUR TIMES DAILY NEEDED active Not Available Not Available No t Available ondansetron HCl 4 mg tablet TAKE 1 (ONE) TABLET BY MOUTH FOUR TIMES DAILY NEEDED active Not Available Not Available No t Available prednisone 20 mg tablet TAKE 2 TABLETS BY MOUTH ONCE DAILY FOR 5 DAYS active Not Available Not Available No t Available isosorbide mononitrate ER 30 mg tablet,exten ded release 24 hr TAKE 1 TABLET BY MOUTH ONCE A DAY. active Not Available Not Available No t Available spironolacto ne 100 mg tablet TAKE 1 TABLET BY MOUTH ONCE A DAY active Not Available Not Available No t Available sulfamethoxa zole 800 mg-trimethop rim 160 mg tablet TAKE (1) TABLET BY MOUTH TWICE A DAY. active Not Available Not Available No t Available sildenafil 100 mg tablet TAKE 1 TABLET BY MOUTH NEEDED active Not Available Not Available No t Available spironolacto ne 25 mg tablet TAKE (1) TABLET BY MOUTH TWICE A DAY. active Not Available Not Available No t Available acyclovir 800 mg tablet TAKE 1 TABLET FIVE TIMES A DAY. active Not Available Not Available No t Available carvedilol 3.125 mg tablet TAKE 1 TABLET BY MOUTH TWICE A DAY WITH A MEAL/FOOD active Not Available Not Available Not Available oxycodone-ac etaminophen 10 mg-325 mg tablet TAKE 1 TABLET BY MOUTH FIVE TIMES DAILY active Not Available Not Available Not Available tamsulosin 0.4 mg capsule TAKE 1 CAPSULE BY MOUTH ONCE PER DAY active Not Available Not Available No t Available gabapentin 800 mg tablet TAKE 1 TABLET BY MOUTH THREE TIMES PER DAY active Not Available Not Available No t Available meclizine 25 mg tablet TAKE 1 TABLET BY MOUTH THREE TIMES DAILY NEEDED active Not Available Not Available No t Available doxycycline monohydrate 100 mg capsule TAKE 1 CAPSULE BY MOUTH TWICE PER DAY FOR 10 DAYS active Not Available Not Available No t Available ropinirole 2 mg tablet TAKE 1 (ONE) TABLET BY MOUTH AT BEDTIME active Not Available Not Available No t Available glimepiride 4 mg tablet TAKE 1 TABLET BY MOUTH TWO TIMES DAILY active Not Available Not Available Not Available fluoromethol one 0.1 % eye drops,suspen sudhir INSTILL 1 DROP INTO EACH EYE THREE TIMES DAILY FOR 21 DAYS active Not Available Not Available No t Available lidocaine 5 % topical patch PLACE 1 PATCH ONTO THE SKIN DAILY FOR 14 DAYS. REMOVE & DISCARD PATCH WITHIN 12 HOURS OR DIRECTED BY MD. active Not Available Not Available No t Available nitroglyceri n 0.4 mg sublingual tablet DISSOLVE 1 TABLET UNDER TONGUE EVERY 5 MINUTES UP TO 3 DOSES NEEDED FOR CHEST PAIN active Not Available Not Available No t Available mupirocin 2 % topical ointment APPLY 1 GRAM TWO TIMES A DAY active Not Available Not Available Not Available digoxin 125 mcg (0.125 mg) tablet TAKE 1 TABLET BY MOUTH ONCE A DAY. active Not Available Not Available No t Available clobetasol 0.05 % topical ointment APPLY A THIN LAYER TO THE AFFECTED AREA(S) TWICE A DAY FOR 2 WEEKS active Not Available Not Available Not Available albuterol sulfate HFA 90 mcg/actuatio n aerosol inhaler INHALE 2 PUFFS BY INHALATION EVERY FOUR HOURS NEEDED active Not Available Not Available No t Available fluticasone propionate 50 mcg/actuatio n nasal spray,suspen sudhir active Not Available Not Available Not Available doxycycline hyclate 100 mg tablet TAKE 1 TABLET BY MOUTH EVERY 12 HOURS FOR 7 DAYS active Not Available Not Available N ot Available finasteride 5 mg tablet Take 1 tablet by mouth once daily active Not Available Not Available No t Available tadalafil 5 mg tablet TAKE 1 TO 4 TABLETS BY MOUTH ONCE DAILY NEEDED active Not Available Not Available No t Available ranolazine ER 500 mg tablet,exten ded release,12 hr TAKE (1) TABLET BY MOUTH TWICE A DAY. active Not Available Not Available No t Available oxycodone 10 mg tablet TAKE 1 TABLET FIVE TIMES A DAY. active Not Available Not Available No t Available dexlansopraz ole 60 mg capsule,biph ase delayed release TAKE 1 CAPSULE BY MOUTH ONCE PER DAY active Not Available Not Available No t Available Xarelto 20 mg tablet TAKE 1 TABLET BY MOUTH EVERY EVENING FOR ATRIAL FIBRILLATIO N; TAKE WITH EVENING MEAL active Not Available Not Available No t Available Victoza 3-Aman 0.6 mg/0.1 mL (18 mg/3 mL) subcutaneous pen injector INJECT 1.8MG ONCE DAILY active Not Available Not Available No t Available Jardiance 10 mg tablet TAKE 1 TABLET BY MOUTH DAILY active Not Available Not Available Not Available Entresto 24 mg-26 mg tablet TAKE 1 TABLET BY MOUTH TWICE DAILY active Not Available Not Available No t Available Breztri Aerosphere 160 mcg-9mcg-4.8 mcg/actuatio n HFA aerosol inhaler INHALE 2 PUFFS TWICE DAILY active Not Available Not Available No t Available Ozempic 1 mg/dose (4 mg/3 mL) subcutaneous pen injector INJECT WEEKLY active Not Available Not Available No t Available Ozempic 2 mg/dose (8 mg/3 mL) subcutaneous pen injector INJECT 2MG SUBCUTANEOU SLY ONCE WEEKLY active Not Available Not Available No t Available Vitals Date Recorded Body height Body mass index (BMI) Body weight Body temperature Provider Name and Address Organization Details Last Updated DateTime 05/29/2023 180.34 cm 37.7 kg/m2 609327.94 g 97.9 [degF] Duylisandra [facility] & [place] 05/29/2023 12:48:55 Date Recorded Body height Body mass index (BMI) Body weight Body temperature Provider Name and Address Organization Details Last Updated DateTime 06/03/2024 180.34 cm 37.7 kg/m2 084516.94 g 98.2 [degF] Juaquin [facility] & [place] 06/03/2024 09:47:08 Social History None recorded. Functional Status Question Answer Note LastModified by Organizat ion Details LastModified Time What is your level of alcohol consumption? Occasional [email or web address] Information not available 05/29/2023 Mental Status None recorded. Family History Relationship Description Onset Age of this Age Resolved Age Notes LastModified by Organization Details LastModified Time Father Acute stroke Jun Not availab le 09/04/2023 10:07:47 Brother Myocardial infarction DEC Not available 05/29 12:48:08 Mother Family history unknown Jun-13 Not available 2023 10:07:47 Medical History No medical history recorded. Past Encounters Encounter ID Performer Location Encounter Start Date Encounter Closed Date Diagnosis/Indication Diagnosis SNOMED-CT Code Diagnosis ICD10 Code Diagnosis Note [id number] Kirby Church Jr, MD [facility] [address] [address] 05/29/2023 12:17:04 05/29/2023 13:10:20 Benign prostatic hyperplasia with outflow obstruction 270581710 N40.1 Patient with history of BPH. He continues on tamsulosin and finasterid e states he is voiding well. We will continue the meds. Erectile dysfunction 860 761003 F52.21 Pt with h/o ED. Doing well on Sildenafil 100 mg. Will refill. We discussed that he should not take within 4 hrs of the Flomax. [id number] Kirby Church Jr, MD [facility] [address] [address] 06/03/2024 09:44:10 06/03/2024 10:19:46 Benign prostatic hyperplasia with outflow obstruction 744742047 N40.1 Patient with history of BPH. He continues on tamsulosin and finasterid e states he is voiding well. We will continue the meds. Cystoscopy performed in October 2021 showed bilobar hyperplasi a without a median lobe. Patient is not a surgical candidate due to his other medical problems. Erectile dysfunction 860 463680 F52.21 Pt with h/o ED. Doing well on Sildenafil 100 mg. Will refill. We discussed that he should not take within 4 hrs of the Flomax. Screening for malignant neoplasm of prostate 613765264 Z12.5 patient's last PSA was 0.12 years ago. We will repeat today. [id number] Gennaro Bocanegra MD [facility] [address] [place] [address] 09/04/2023 10:01:09 09/04/2023 10:45:41 Pain in right foot 4167949077 25937 M79.671 Cervical radiculitis 110 21099 M54.12 Acquired c avus deformity of foot 07852917 M21.6X9 Health Concerns Section Related Observation LastModified by Organization Detai ls LastModified Time None Recorded Concern Status LastModified by Organization Details LastModified Time None Recorded Advance Directives Directive None Recorded Payers Insurance Date Sequence Insurance Name Policy Number Policy Jay Covered Member ID Jay Member ID Guarantor Name 06/03/2024 2 MEDICAID-[facility] CHOICES - FFS/TRADITION AL Hugh Sanches [id number] Hugh Sanches 06/03/2024 1 [facility] (MEDICARE REPLACEMENT/A DVANTAGE - HMO) [id number] Hugh Sanches [id number] Hugh Sanches Notes Date Note Type Note Provider Name and Address Organization Details Recorded Time 05/29/2023 text/html Patient is a 68-year-old white male with a history of BPH and erectile dysfunction. He was previously seen at [facility]. He transferred care to [facility] today. Last visit with me was in November 2021. Patient continues on tamsulosin and finasteride for his BPH symptoms. He also he is taking sildenafil 100 mg with good success. Previous PSAs been very low at 0.1. Patient also has a history of kidney stones in his last imaging study showed a small stone in the left lower pole. Patient states that he has passed a couple of small stones in the past few months without significant difficulty. Cystoscopy was performed in October 2021 which showed bilobar hyperplasia without evidence of the median lobe. Patient is not a great surgical candidate due to his heart history. Kirby Church Jr, MD [address] [place] [address], [address], [place], [address], [facility] - [facility] & [place] 05/29/2023 13:46:15 09/04/2023 text/html 68 year old male here today for radiating pain down bilateral arms with hand numbness and right foot pain. He states that he has had braces from [employer] before but that braces rub the hide off so he does not wear them. He walks on lateral aspect of his right foot. He takes percocet 10mg Gennaro Bocanegra MD [address] [place] [address],[address], [place], [address], [facility] - [facility] & [place] 09/04/2023 10:56:22 06/03/2024 text/html Patient is a 69-year-old white male with history of BPH and erectile dysfunction. He returns today for yearly follow-up. He continues on tamsulosin and finasteride for BPH and states he is voiding without difficulty.Patient with history of erectile dysfunction and doing satisfactorily with the sildenafil 100 mg p.r.n..Patient with history of kidney stones but denies any recurrence of stones. Kirby Church Jr, MD [address] [place] [address], [address], [place], [address], [place] - [facility] - [place] & [place] 06/03/2024 11:15:05
[2024-11-23 12:31] LABS: Basophils # 0.1 K/mm3 (0-0.2); Basophils % 1.2 % (0.1-2.0); Eosinophils # 0.2 Kmm3 (0.0-0.4); Eosinophils % 1.9 % (0.1-12.0); Hemoglobin 16.6 g/dL (14.1-18.0); Immature Granulocytes # 0.09 10^3uL; Lymphocytes # 1.1 K/mm3 (0.7-4.5); Lymphocytes % 12.1 % (10-50); Mean Corpuscular HGB Conc 31.9 g/dL (31.8-35.4); Mean Corpuscular Hemoglobin 27.6 pg (27.0-31.2); Mean Corpuscular Volume 86.4 fl (80-94); Mean Platelet Volume 9.2 fl (7.4-10.4); Monocytes # 0.9 K/mm3 (0.1-1.0); Monocytes % 10.3 % (1.7-9.3); Neutrophils # 6.6 K/mm3 (1.8-7.8); Neutrophils % 73.5 % (37.0-80.0); Nucleated Red Blood Cells # 0 10^3/uL; Nucleated Red Blood Cells % 0 %; Platelet Count 407 K/mm3 (142-424); Red Blood Count 6.02 M/mm3 (4.60-6.20); Red Cell Distribution Width 15.5 % (11.5-17.5); Red Cell Distribution Width-SD 47.9 fL; White Blood Count 8.9 K/mm3 (4.8-10.8)
[2024-11-23 12:55] LABS: Albumin Level 4.2 g/dl (3.5-5.0); Chloride 95 mmol/L (98-107); Sodium 138 mmol/L (136-145)
[2024-11-23 12:56] LABS: Potassium 3.9 mmoL/L (3.5-5.1)
[2024-11-23 12:58] LABS: Alanine Aminotransferase 25 U/L (12-78); Alkaline Phosphatase 34 U/L (38-126); Anion Gap 8.9 mEq/L (5-15); Aspartate Amino Transferase 22 U/L (17-59); Bilirubin,Direct 0.2 mg/dl (0.0-0.4); Bilirubin,Indirect 0.5 mg/dL (0.0-0.9); Bilirubin,Total 0.7 mg/dl (0.2-1.3); Bilirubin,Unconjugated 0.4 mg/dL (0.0-1.1); Blood Urea Nitrogen 38 mg/dl (9-20); Calcium 8.3 mg/dl (8.4-10.2); Carbon Dioxide 38 mmol/L (22.0-30.0); Cholesterol 204 mg/dl (140-200); Estimated Glomerular Filt Rate 66 ml/min (>60); GFR (African American) 80 ML/MIN (>60); Glucose 185 mg/dl (74-100); Total Protein,Serum 6.5 g/dl (6.3-8.2); Triglycerides 263 mg/dl (30-150); VLDL Cholesterol 53 mg/dL (0-40)
[2024-11-23 12:59] LABS: Chol/HDL Ratio 6.2 (1-3.5); HDL Cholesterol 33 mg/dl (40-60); Magnesium 2.2 mg/dl (1.6-2.3)
[2024-11-23 13:10] LABS: Direct LDL Cholesterol 129.41 mg/dL (100-129)
[2024-11-23 13:17] LABS: Free T4 (Free Thyroxine) 1.36 ng/dl (0.78-2.19)
[2024-11-23 13:29] LABS: Thyroid Stimulating Hormone 1.93 uIU/mL (0.465-4.68)
== END 2024-11-23 23:59 | disposition home or self-care (01) ==
PROVIDERS: PCP Family Medicine; Visit Provider Nurse Practitioner
DX: I10 Essential (primary) hypertension (principal); I25.10 Atherosclerotic heart disease of native coronary artery without angina pectoris; E78.2 Mixed hyperlipidemia
CPT/HCPCS: 36415; 80048; 80061; 80076; 83735; 84439; 84443; 85025

== ENCOUNTER 2025-02-24 11:32 | Outpatient (CLI) | payer MEDICARE, MEDICAID, SELFPAY ==
--- OUTSIDE RECORDS SUMMARY | 2025-01-06 05:00 | XMS_ITS | Encounter Summary ---
Author Organization [employer] ([place], [place], [place], [place]) Address [address] [place] [address] Care Team Providers Care Cigar Head Holer Name Role Phone Zackery Meadows MD Primary Care Provider [phone] Reason for Visit * Reason Comments Pacemaker /ICD Home Monitoring Encounter Details Date Type Department Care Team (Late st Contact Info) Description 01/06/2025 5:00 AM EDT Clinical Support [facility] Electrophysiology [address] [place] [phone] [place] [address] [place] [address] [address] [place] [address] Encounter for adjustment or management of cardiac device (Primary Dx); AF (paroxysmal atrial fibrillation) (HCC); HFrEF (heart failure with reduced ejection fraction) ([facility]); MRI safe cardiac pacemaker in situ; SSS (sick sinus syndrome) ([facility]) Social History Tobacco Use Types Packs/Day Years Used Date Smoking Tobacco: Never Smokeless Tobacco: Never Alcohol Use Standard Drinks/Week Comments Never 0 (1 standard drink = 0.6 oz pur e alcohol) Food Insecurity Answer Date Recorded Food run out past 12 months Not on file 01/05 Food did not last past 12 months Not on file 01/16/2024 Employment Answer Date Recorded Help finding and keeping a job Not on file 0 01/16/2024 Family and Community Support Answer Jhonny e Recorded Help with Day to Day Activities Not on file 03/16/2024 Feeling Lonely or Isolated Not on file 03/16 Educational Attainment Answer Date Tal rded Speak language other than Nigerian at home Not on file 03/16/2024 Want help with school or training Not on file 03/16/2024 Substance Use Answer Date Recorded Used prescription meds for non-medical reasons N ot on file 03/16/2024 Used illegal drugs past 12 months Not on file 03/16/2024 Sex and Gender Information Value Date Recorded Sex Assigned at Not on file Legal Sex Male 3:47 PM CDT Gender Identity Not on file Sexual Orientation Not on file documented as of this encounter Plan of Treatment Not on file documented as of this encounter Visit Diagnoses Diagnosis Encounter for adjustment or management of cardiac device- Primary AF (paroxysmal atrial fibrillation) ([facility]) Atrial fibrillation HFrEF (heart failure with reduced ejection fraction) ([facility]) MRI safe cardiac pacemaker in situ SSS (sick sinus syndrome) ([facility]) Sinoatrial node dysfunction documented in this encounter Care Teams Cigar Head Holer Relationship Specialty Start Date End Date Zackery Meadows MD [address] [place] [address] [phone] PCP - General Family Medicine 03/16/24 documented as of this encounter
--- OUTSIDE RECORDS SUMMARY | 2025-02-24 11:34 | XMS_ITS | Clinical Summary ---
Author Organization [employer] ([place], [place], [place], [place]) Address [address] [place] [address] Care Team Providers Care Tile Sprayer Name Role Phone Zackery Meadows MD Primary Care Provider [phone] Allergies Active Allergy Reactions Criticality Noted Date Comments Penicillin 03/16/2024 Medications No known medications Active Problems Problem Noted Date Diagnosed Date Encounter for adjustment or management of cardia c device 07/30/2024 Thyroid nodule 03/16/2024 Fall, initial encounter 03/16/2024 Injury of head, initial encounter 03/16/2024 Osteoarthritis of lumbar spi ne, unspecified spinal osteoarthritis complication status 03/16/2024 Contusion of knee and lower leg, right, initial encounter 03/16/2024 Right shoulder strain, initial encounter 024 AF (paroxysmal atrial fibrillation) 11/23/2023 11/23/2023 HFrEF (heart failure with reduced ejection fract ion) 11/23/2023 11/23/2023 Hyperlipemia 11/23/2023 11/23/2023 SSS (sick sinus syndrome) 11/23/2023 MRI safe cardiac pacemaker in situ 05/28/2023 11/23/2023 Arteriosclerosis of coronary artery 07/19/2014 11/23/2023 Hypertension 07/19/2014 11/23/2023 Encounters Date Type Department Care Team Description 01/06/2025 5:00 AM EDT Clinical Support [facility] Electrophysiology [address] [place] [phone] Matt Garcia MD Encounter for adjustment or management of cardiac device (Primary Dx); AF (paroxysmal atrial fibrillation) (HCC); HFrEF (heart failure with reduced ejection fraction) (HCC); MRI safe cardiac pacemaker in situ; SSS (sick sinus syndrome) (HCC) from Last 3 Months Social History Tobacco Use Types Packs/Day Years Used Date Smoking Tobacco: Never Smokeless Tobacco: Never Tobacco Cessation:Counseling Given: Not Answered Alcohol Use Standard Drinks/Week Comments Never 0 [...] Date Tal rded Speak language other than Haitian at home Not on file 03/16/2024 Want [...] on file Sexual Orientation Not on file Last Filed Vital Signs Vital Sign Reading Time Taken Comments Blood Pressure 165/86 03/16/2024 5:07 PM EDT Pulse 129 03/16/2024 5:07 PM EDT Temperature 36.8 C (98.3 F) 03/16/2024 5:07 PM EDT Respiratory Rate 20 03/16/2024 5:07 PM EDT Oxygen Saturation 96% 03/16/2024 5:07 PM EDT Inhaled Oxygen Concentration - - Weight 127 kg (280 lb) 03/16/2024 3:03 PM EDT Height 180.3 cm (5' 11 ) 03/16/2024 3:03 PM EDT Body Mass Index 39.05 03/16/2024 3:03 PM EDT Plan of Treatment Health Maintenance Due Date Last Done Comments CT Colonography 1955 Colonoscopy 1955 Colorectal Cancer Screening 1955 FOBT/FIT 1955 Fit-DNA (Cologuard) 1955 Sigmoidoscopy 1955 Depression Screening (12+) 1967 Hepatitis C Screening 1973 DTAP/TDAP/TD VACCINES (1 - Tdap) 1974 Shingles Vaccine (Zoster) (1 of 2) 2005 Respiratory Syncytial Virus (RSV) Adult or (1 - Risk 60-74 years 1-dose series) 2015 COVID-19 VACCINE ( season) 2024, 09/22/2020 Falls Risk Screening 07/08/2024 Medicare Initial AWV [id number] 07/09/2024 Influenza Vaccine (#1) 2025 04/02/2022 Tobacco Cessation Counseling and Screening (12+) 03/16/2025 03/16/2024 Pneumococcal 50+ years Completed 03/28/2020, 2016 Medical Devices Implanted Type Area Aerial Survey Technician Device Identifier Shelf Expiration Date Model / Serial / Lot Pacemakers-01/10 Implanted:12/2016 (Quantity not on file) Pacemakers [employer] [id number] / [id number] / Insurance [facility] ADV DUAL COMPLETE MEDICAID QMB Care Teams Tile Sprayer Relationship Specialty Start Date End Date Zackery Meadows MD [address] [place] [address] PCP - General Family Medicine 03/16/24
--- OUTSIDE RECORDS SUMMARY | 2025-02-24 11:34 | XMS_ITS | Encounter Summary ---
Author Organization [employer] ([place], [place], [place], [place]) Address [address] [place] [address] Care Team Providers Care Cut Roll Machine Operator Name Role Phone Zackery Meadows MD Primary Care Provider [phone] Encounter Details Date Type Department Care Team (Late st Contact Info) Description 03/27/2022 Transcribed Document [facility] Family Medicine [address] [place] [address] ProviderDayana MD [address] [place] [address] Social History Tobacco Use Types Packs/Day Years Used Date Smoking Tobacco: Never Assessed Food Insecurity Answer Date Recorded Food run [...] Date Tal rded Speak language other than Albanian at home Not on file 03/16/2024 Want [...] on file documented as of this encounter Miscellaneous Notes * Cerner Conversion Note - Dayana Piña MD - 03/27/2022 9:57 AM CDT Patient Education Materials Follows: Fall Prevention in the Home, Adult Falls can cause injuries and can happen to people of all ages. There are many things you can do to make your home safe and to help prevent falls. Ask for help when making these changes. What actions can I take to prevent falls? General Instructions ??? Use good lighting in all rooms. Replace any light bulbs that burn out. ??? Turn on the lights in dark areas. Use night-lights. ??? Keep items that you use often in yjpc-mi-oxhjy places. Lower the shelves around your home if needed. ??? Set up your furniture so you have a clear path. Avoid moving your furniture around. ??? Do not have throw rugs or other things on the floor that can make you trip. ??? Avoid walking on wet floors. ??? If any of your floors are uneven, fix them. ??? Add color or contrast paint or tape to clearly chun and help you see: ? Grab bars or handrails. ? First and last steps of staircases. ? Where the edge of each step is. ??? If you use a stepladder: ? Make sure that it is fully opened. Do not climb a closed stepladder. ? Make sure the sides of the stepladder are locked in place. ? Ask someone to hold the stepladder while you use it. ??? Know where your pets are when moving through your home. What can I do in the bathroom? Keep the floor dry. Clean up any water on the floor right away. ??? Remove soap buildup in the tub or shower. ??? Use nonskid mats or decals on the floor of the tub or shower. ??? Attach bath mats securely with double-sided, nonslip rug tape. ??? If you need to sit down in the shower, use a plastic, nonslip stool. ??? Install grab bars by the toilet and in the tub and shower. Do not use towel bars as grab bars. What can I do in the bedroom? Make sure that you have a light by your bed that is easy to reach. ??? Do not use any sheets or blankets for your bed that hang to the floor. ??? Have a firm chair with side arms that you can use for support when you get dressed. What can I do in the kitchen? Clean up any spills right away. ??? If you need to reach something above you, use a step stool with a grab bar. ??? Keep electrical cords out of the way. ??? Do not use floor samoan or wax that makes floors slippery. What can I do with my stairs? Do not leave any items on the stairs. ??? Make sure that you have a light switch at the top and the bottom of the stairs. ??? Make sure that there are handrails on both sides of the stairs. Fix handrails that are broken or loose. ??? Install nonslip stair treads on all your stairs. ??? Avoid having throw rugs at the top or bottom of the stairs. ??? Choose a carpet that does not hide the edge of the steps on the stairs. ??? Check carpeting to make sure that it is firmly attached to the stairs. Fix carpet that is loose or worn. What can I do on the outside of my home? Use bright outdoor lighting. ??? Fix the edges of walkways and driveways and fix any cracks. ??? Remove anything that might make you trip as you walk through a door, such as a raised step or threshold. ??? Trim any bushes or trees on paths to your home. ??? Check to see if handrails are loose or broken and that both sides of all steps have handrails. ??? Install guardrails along the edges of any raised decks and porches. ??? Clear paths of anything that can make you trip, such as tools or rocks. ??? Have leaves, snow, or ice cleared regularly. ??? Use sand or salt on paths during winter. ??? Clean up any spills in your garage right away. This includes grease or oil spills. What other actions can I take? Wear shoes that: ? Have a low heel. Do not wear high heels. ? Have rubber bottoms. ? Feel good on your feet and fit well. ? Are closed at the toe. Do not wear open-toe sandals. ??? Use tools that help you move around if needed. These include: ? Canes. ? Walkers. ? Scooters. ? Crutches. ??? Review your medicines with your doctor. Some medicines can make you feel dizzy. This can increase your chance of falling. Ask your doctor what else you can do to help prevent falls. Where to find more information ??? Centers for Disease Control and Prevention, [place]: www.cdc.gov ??? National [place] A[place]: www.krissy.nih.gov Contact a doctor if: ??? You are afraid of falling at home. ??? You feel weak, drowsy, or dizzy at home. ??? You fall at home. Summary ??? There are many simple things that you can do to make your home safe and to help prevent falls. ??? Ways to make your home safe include removing things that can make you trip and installing grab bars in the bathroom. ??? Ask for help when making these changes in your home. This information is not intended to replace advice given to you by your health care provider. Make sure you discuss any questions you have with your health care provider. Document Revised: 01/25/2021 Document Reviewed: 01/25/2021 [employer] Patient Education ? 2021 [employer] documented in this encounter Plan of Treatment Not on file documented as of this encounter Visit Diagnoses Not on filedocumented in this encounter Care Teams Cut Roll Machine Operator Relationship Specialty Start Date End Date Zackery Meadows MD [address], [place] [id number] PCP - General Family Medicine 03/16/24 documented as of this encounter
--- OUTSIDE RECORDS SUMMARY | 2025-02-24 11:34 | XMS_ITS | Encounter Summary ---
Author Organization [employer] ([place], [place], [place], [place]) Address [address] [place] [address] Care Team Providers Care Distribution Operation Supervisor Name Role Phone Zackery Meadows MD Primary Care Provider [phone] Encounter Details Date Type Department Care Team (Late st Contact Info) Description 03/27/2022 Transcribed Document [facility] [place] [address] [place] [address] ProviderDayana MD [address] [place] [address] Social History Tobacco Use Types [...] Date Tal rded Speak language other than [place] at home Not on file 03/16/2024 Want [...] Notes * Cerner Conversion Note - Dayana ProviderMD - 03/27/2022 9:17 AM CDT Ambulatory Intake and History Entered On: 03/27/2022 9:23 EDT Performed On: 03/27/2022 9:17 EDT by SANGEETHA NORTH [facility] Ambulatory Accompanied By : Unaccompanied Chief Complaint : neck and LBP radiates BLE RT foot numbness SANGEETHA NORTH 03/27/2022 9:17 EDT Height and Weight, Clinical Dosing Height Source : Stated Height Entry Format : [place] Height, Feet : 5 ft(Converted to: 152 cm, 60 Inch) Height, Inches : 10 Inch(Converted to: 0 ft 10 Inch, 25.40 cm) Clinical Height : 177.8 cm Weight Source : Standing scale Weight Entry Format : [place] Clinical Dosing Weight : 134.09 kg Weight, Pounds : 295 lb Body Surface Area (BSA) : 2.46 m2 Body Mass Index : 42.4 kg/m2 (>HHI) [place] Body Weight : 72 kg SANGEETHA NORTH - 03/27/2022 9:17 EDT Vital Measurements Temperature Source : Temporal artery scanning Temperature Mode : Fahrenheit Temperature, Fahrenheit : 97.4 Deg F Clinical Temperature, C : 36.3 Deg C Pulse Method : Non-Invasive BP Device Pulse Source : Brachial, Right Heart Rate, Apical : 114 bpm (HI) Pulse Rhythm : Regular Respiratory Rate : 18 Breaths/Min Blood Pressure Location : Arm, right upper Blood Pressure Source : Non-Invasive BP Device Blood Pressure Position : Sitting Systolic Blood Pressure : 142 mmHg (HI) Diastolic Blood Pressure : 88 mmHg Oxygen Saturation : 97 % Oxygen Therapy Mode : Room air SANGEETHA NORTH - 03/27/2022 9:17 EDT Pain Assessment Pain Assessment : Initial assessment Duration : 1997 Pain Scale Used : 0-10 Scale Location : Back, lower, Neck Onset : Chronic Pain Location Comment : constant Quality : Aching, Burning, Numbness, Sharp, Stabbing, Tender, Throbbing, Tingling Pain Radiation : Yes Pain Radiation Location : Hips, bilateral, Legs, bilateral Pain Worsened by : Movement, Other: sitting, driving, bending, stairs, sexual activity, lifting Pain Improved by : Cold therapy, Heat therapy, Relaxation, Repositioning Pain Intervention, Drug : Medicated Pain Intervention, Non-Drug : Cold therapy, Heat, Positioning, Relaxation Pain Improved by Intervention : Yes Intervention, Consult : Pain management Pain Comment : 50% relief with meds SANGEETHA NORTH 03/27/2022 9:17 EDT Patient Health Questionnaire Depression Scale-9 (PHQ-9) Trouble Falling/Staying Asleep/Sleeping : Nearly every day Little Interest or Pleasure Doing Things : More than half the days Feeling Down, Depressed, Hopeless : Nearly every day Feeling Tired or Little Energy : Nearly every day Poor Appetite or Overeating : Nearly every day Feel Bad About Self/That You are Failure : More than half the days Trouble Concentrating on Things : Nearly every day Moving/Speaking Slowly, Fidgety/Restless : Not at all Thoughts of Better Off /Hurting Self : Not at all PHQ-9 Score : 19 PHQ-9 Score Interpretation : Moderately severe depression (15-19) SANGEETHA NORTH 03/27/2022 9:17 EDT Functional Assessment Living Situation : Home Sensory Deficits : None Home Equipment Therapy, PT : Walker Professional Skilled Services : Other: PT>8 yrs SANGEETHA NORTH 03/27/2022 9:17 EDT Teaching/Learning Assessment Barriers To Learning : None evident Individuals Taught : Patient Readiness to Learn : Cooperative Learning Style Preferences Patient : Printed materials, Verbal explanation Learning Style Preferences Family : Printed materials, Verbal explanation SANGEETHA NORTH 03/27/2022 9:17 EDT Fall Risk Scales CHAPMAN Hx Falls Immediate/Within 3 Months : Yes Chapman Secondary Diagnosis : Yes CHAPMAN Use of Ambulatory Aid : Crutches/Cane/Walker CHAPMAN IV Therapy or IV Access : No [place] Gait/Transferring : Weak Chapman Mental Status : Oriented to own ability Chapman Fall Risk Score : 65 CHAPMAN Fall Scale Risk Level : 46 or > High Risk [place] Fall Interventions : Adequate lighting, Assistive devices within reach, Fall prevention handout/education per facility policy, Personal items within reach, Room free of clutter/spills SANGEETHA NORTH 03/27/2022 9:17 EDT Sleep Apnea Risk Assmt BiPAP/CPAP Ordered for Home Use : Yes Hx of Obstructive Sleep Apnea Diagnosis : Yes BiPAP/CPAP Used at Home : Yes Age over 50 Years Old : Yes Gender Male : Yes SANGEETHA NORTH 03/27/2022 9:17 EDT Pain Scale Intensity : 8 SANGEETHA NORTH 03/27/2022 9:17 EDT Image 4 - Images currently included in the form version of this document have not been included in the text rendition version of the form. documented in this encounter Plan of Treatment Not on file documented as of this encounter Visit Diagnoses Not on filedocumented in this encounter Care Teams Distribution Operation Supervisor Relationship Specialty Start Date End Date Zackery Meadows MD [address] [place] [address] PCP - General Family Medicine 03/16/24 documented as of this encounter
--- OUTSIDE RECORDS SUMMARY | 2025-02-24 11:34 | XMS_ITS | Clinical Summary ---
Author Organization [facility] Address [address], [address] [place] [address] Care Team Providers Care Wildlife Enforcement Major Name Role Phone Unavailable Primary Care Provider Unavailabl e Allergies Active Allergy Reactions Criticality Noted Date Comments Penicillins 08/30/2013 Medications diclofenac (VOLTAREN) 75 MG EC tablet Take 1 tablet by mouth 2 times daily for 20 doses. 20 tablet 0 08/30/2013 Active Misc. Devices (CRUTCH) MISC 1 each by Does not apply route daily as needed. 1 each 0 08/30/2013 Active liraglutide (VICTOZA) 18 MG/3ML SOLN SC injection Inject 1.2 mg into the skin daily. Active ibuprofen (ADVIL;MOTRIN) 400 MG tablet Take 400 mg by mouth every 6 hours as needed for Pain. Active lisinopril-hydro chlorothiazide (PRINZIDE;ZESTOR ETIC) 20-25 MG per tablet Take 1 tablet by mouth daily. Active Social History Tobacco Use Types Packs/Day Years Used Date Smoking Tobacco: Never Assessed Sex and Gender Information Value Date Recorded Sex Assigned at Not on file Legal Sex Male 11:48 PM EST Gender Identity Not on file Sexual Orientation Not on file Last Filed Vital Signs Vital Sign Reading Time Taken Comments Blood Pressure 150/77 08/30/2013 8:00 PM EST Pulse 71 08/30/2013 8:00 PM EST Temperature 36.4 C (97.6 F) 08/30/2013 8:00 PM EST Respiratory Rate 14 08/30/2013 8:00 PM EST Oxygen Saturation - - Inhaled Oxygen Concentration - - Weight - - Height - - Body Mass Index - - Plan of Treatment Not on file
--- OUTSIDE RECORDS SUMMARY | 2025-02-24 11:34 | XMS_ITS | Encounter Summary ---
Author Organization [employer] ([place], [place], [place], [place]) Address [address] [place] [address] Care Team Providers Care Flat Finisher Name Role Phone Zackery Meadows MD Primary Care Provider [phone] Encounter Details Date Type Department Care Team (Late st Contact Info) Description 03/27/2022 Transcribed Document [facility] Family Medicine [address] [place] [address] ProviderDayana MD [address] [place] [address] Social History Tobacco Use Types [...] Date Tal rded Speak language other than Zambian at home Not on file 03/16/2024 Want [...] Note - Dayana Piña MD - 03/27/2022 9:55 AM CDT Nursing Discharge Summary Entered On: 03/27/2022 9:57 EDT Performed On: 03/27/2022 9:55 EDT by FREDERICK WYATT RN Discharge Documentation Discharge Date/Time : 03/27/2022 9:55 EDT Patient Disposition, General : Discharge Discharge To : Home without planned follow-up Mode Of Departure, General Discharge : Ambulatory Accompanied By, Discharge : Other: spouse in lobby Prescriptions Given to Patient : No Medications Given to Patient : No Discharge Instructions Reviewed With, Opportunity For Questions Given : Other: Dr. Jackson instructed pt to return prn Teaching Method : Explanation Teaching Evaluation : Verbalizes understanding FREDERICK WYATT RN - 03/27/2022 9:55 EDT Electronically signed by [facility] Conversion Juice Tester Cerner at 10/22/2022 6:12 PM CDT documented in this encounter Plan of Treatment Not on file documented as of this encounter Visit Diagnoses Not on filedocumented in this encounter Care Teams Flat Finisher Relationship Specialty Start Date End Date Zackery Meadows MD [address] [place] [address] PCP - General Family Medicine 03/16/24 documented as of this encounter
--- OUTSIDE RECORDS SUMMARY | 2025-02-24 11:34 | XMS_ITS | Referral Summary ---
Author Organization [email or web address] ([place], [place], [place], [place]) Address [address] [place] [address] Care Team Providers Care Parts Puller Name Role Phone Zackery Meadows MD Primary Care Provider [phone] Encounters Date Type Department Care Team Description 01/06/2025 5:00 AM EDT Clinical Support [facility] Electrophysiology [address] [place] [address] Matt Garcia MD Encounter for adjustment or management of cardiac device (Primary Dx); AF (paroxysmal atrial fibrillation) (HCC); HFrEF (heart failure with reduced ejection fraction) ([facility]); MRI safe cardiac pacemaker in situ; SSS (sick sinus syndrome) ([facility]) from Last 3 Months Allergies Active Allergy Reactions Criticality Noted Date [...] coronary artery 07/19/2014 11/23/2023 Hypertension 07/19/2014 11/23/2023 Social History Tobacco Use Types Packs/Day Years [...] Date Tal rded Speak language other than Brazilian at home Not on file 03/16/2024 Want [...] 03/16/2024 3:03 PM EDT Plan of Treatment Not on file Medical Devices Implanted Type Area City Maintenance Manager Device Identifier Shelf Expiration Date Model / Serial / Lot Pacemakers-01/10 Implanted:12/2016 (Quantity not on file) Pacemakers [employer] [id number] / [id number] / Insurance [facility] MCR ADV DUAL COMPLETE MEDICAID [place] Care Teams Parts Puller Relationship Specialty Start Date End Date Zackery Meadows MD [address] [place] [address] PCP - General Family Medicine 03/16/24
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
--- OUTSIDE RECORDS SUMMARY | 2025-02-24 11:34 | XMS_ITS | Clinical Summary ---
Author Organization [facility] Address [address] [place] [address] Care Team Providers Care Attendant Lodging Facilities Name Role Phone Unavailable Primary Care Provider Unavailabl e Allergies Active Allergy Reactions Criticality Noted Date Comments Penicillins Rash 07/19/2014 Medications Torsemide 100 mg tablet Active Spironolactone 100 mg tablet Active simvastatin (ZOCOR) 40 mg tablet Active tamsulosin (FLOMAX) 0.4 mg capsule Active glimepiride (AMARYL) 2 mg tablet Active Gabapentin (NEURONTIN) 600 mg tablet Active carvedilol (COREG) 25 mg Active digoxin (LANOXIN) 125 mcg tablet Activ e ibuprofen (MOTRIN) 800 mg tablet Active tadalafil (CIALIS) 5 mg tablet Active rivaroxaban (XARELTO) 20 mg tablet Active clopidogrel (PLAVIX) 75 mg tablet Active dexlansoprazole (DEXILANT) 60 mg capsule Active Active Problems Problem Noted Date Diagnosed Date Morbid obesity 07/19/2014 Other complications due to u nspecified device, implant, and graft 07/19/2014 UGI bleed 07/19/2014 Coagulation disorder due to circulating anticoag ulants 07/19/2014 CAD (coronary artery disease) 07/19/2014 Hypertension 07/19/2014 Social History Tobacco Use Types Packs/Day Years Used Date Smoking Tobacco: Never Assessed Sex and Gender Information Value Date Recorded Sex Assigned at Not on file Legal Sex Male 4:27 PM EST Gender Identity Not on file Sexual Orientation Not on file Last Filed Vital Signs Vital Sign Reading Time Taken Comments Blood Pressure 142/80 07/19/2014 10:45 AM EST Pulse 80 07/19/2014 10:45 AM EST Temperature - - Respiratory Rate 16 07/19/2014 10:45 AM EST Oxygen Saturation - - Inhaled Oxygen Concentration - - Weight 146.1 kg (322 lb) 07/19/2014 10:45 AM EST Height 180.3 cm (5' 11 ) 07/19/2014 10:45 AM EST Body Mass Index 44.91 07/19/2014 10:45 AM EST Plan of Treatment Health Maintenance Due Date Last Done Comments COLOGUARD 1955 COLONOSCOPY 1955 Colorectal Screening Combination 1955 FIT 1955 HEP C SCREENING 1955 SIGMOIDOSCOPY 1955 ANNUAL WELLNESS EXAM 1958 DTAP/TDAP/TD VACCINE (1 - Tdap) 1974 PNEUMOCOCCAL VACCINE 65+ YEA RS (1 of 1 - PCV) 2005 Shingles Vaccine (Shingrix) (1 of 2) 2005 INFLUENZA VACCINE (#1) 2025 HEP A VACCINE Aged Out No longer elig ible based on patient's age to complete this topic HIB VACCINE Aged Out No longer eligi ble based on patient's age to complete this topic ROTOVIRUS VACCINE Aged Out No longer eligible based on patient's age to complete this topic Insurance MEDICARE Member Subscriber Plan / Payer (Ef fective for All Dates) Name:MENDOZA KING R Member ID:[id number] Relation to Subscriber:Self Name:Mendoza King Subscriber ID:[id number] Payer ID:Not on file Group ID:Not on file Type:Not on file Address: [facility] [address] MEDICAL ASSISTANCE Member Subscriber Plan / Payer (Ef fective for All Dates) Name:MENDOZA KING Relation to Subscriber:Self Name:Mendoza King Payer ID:Not on file Group ID:Not on file Type:Not on file Address: [place] [id number] MEDICARE MEDICAL ASSISTANCE MEDICARE MEDICAL ASSISTANCE
--- OUTSIDE RECORDS SUMMARY | 2025-02-24 11:34 | XMS_ITS | Encounter Summary ---
Author Organization [employer] ([place], [place], [place], [place]) Address [address] [place] [address] Care Team Providers Care Principal Process Engineer Name Role Phone Juancarlos Ricardo MD Primary Care Provider [phone] Encounter Details Date Type Department Care Team (Late st Contact Info) Description 03/27/2022 Transcribed Document [facility] [place] [address] [place] [address] ProviderDayana MD [address] [place] [address] Social History Tobacco Use Types [...] Note - Dayana Piña MD - 03/27/2022 9:58 AM CDT PENG Fernandes [facility] [address] [place] [address] HUGH KING :1955 Visit Time:03/27/2022 Your Visit Summary Your Care Team Admitting Physician - ANGELA DASILVA MD-ANS Attending Physician - ANGELA DASILVA MD-ANS Primary Care Physician - FAMILY ANTIONETTE (REF)MD Referring Physician - JUANCARLOS RICARDO (REF), RAMSES These Are Your Goals To help with the pain No qualifying data available. Discharge Vitals Temperature 36.3 ??C Heart Rate 114 Respiratory Rate 18 Blood Pressure 142/88 What to do next Follow-Up Appointments Follow Up with ANGELA DASILVA MD-ANS When Where: [address] [place], [place] [id number]- Medications What How Much When Instructions Next Dose acetaminophen-oxyCODONE (acetaminophen-oxyCODONE 325 mg-10 mg oral tablet) 2 Tablet(s) Oral Every 6 Hours as needed for for pain albuterol (albuterol 2.5 mg/ 3 mL (0.083%) inhalation solution) Nebulized Inhalation Every 6 Hours ALPRAZolam (ALPRAZolam 1 mg oral tablet) Oral Every 8 Hours atorvastatin (atorvastatin 20 mg oral tablet) Oral Every Day carvedilol (carvedilol 12.5 mg oral tablet) 1 Tablet(s) Oral Two Times A Day dexlansoprazole (Dexilant 60 mg oral delayed release capsule) 1 Capsule(s) Oral Every Day digoxin (digoxin 125 mcg (0.125 mg) oral tablet) Oral Every Day empagliflozin (Jardiance 10 mg oral tablet) Oral Every Morning finasteride (finasteride 5 mg oral tablet) Oral Every Day gabapentin (gabapentin 800 mg oral tablet) 1 Tablet(s) Oral Three Times A Day ibuprofen (ibuprofen 800 mg oral tablet) 1 Tablet(s) Oral Three Times A Day liraglutide (Victoza 18 mg/ 3 mL subcutaneous solution) SubCutaneous Every Day rivaroxaban (Xarelto 20 mg oral tablet) 1 Tablet(s) Oral Every Evening rOPINIRole (rOPINIRole 2 mg oral tablet) Oral Every Day spironolactone (spironolactone 100 mg oral tablet) Oral Every Day tamsulosin (tamsulosin 0.4 mg oral capsule) Oral Every Day torsemide (torsemide 20 mg oral tablet) Oral Every Day Take your medications faithfully. Do NOT skip medication. Do NOT stop taking medications without the direction of a physician. Carry a list of your medications with you at all times, and take this medication list with you to your first follow up visit. Report any side effects. Avoid herbal remedies unless discussed with your physician. As part of your treatment plan, your physician may have prescribed a limited course of a controlled substance. This medication may be given to help people with moderate or severe pain or for other medical conditions, but there are risks involved with treatment. Common side effects may include nausea, constipation, drowsiness, sweating, itching, dry mouth, and rash. More serious side effects may include cognitive and motor impairment, like problems with thinking, concentrating, alertness, and movement (e.g. slowed reflexes), and driving and operating heavy machinery can be dangerous. It is important for you to talk to your physician if you have these side effects or questions. These controlled substances can produce physical dependence and be habit-forming if taken for an extended period of time, which means that the body has gotten used to them and may experience withdrawal symptoms if they are abruptly stopped. Withdrawal symptoms can include runny nose, sweating, goose bumps, diarrhea, abdominal cramping, rapid heartbeat, difficulty sleeping, and nervousness. Please dispose of unused and medications per your retail pharmacy guidance. Allergies No active allergies Immunizations This Visit No Immunizations Found Education Materials Fall Prevention in the Home, Adult Falls [...] Keep items that you use often in [id number] places. Lower the shelves around your home [...] the way. ??? Do not use floor tajik or wax that makes floors slippery. What [...] ??? Centers for Disease Control and Prevention, [place]: www.cdc.gov ??? National [place] on Aging: www.krissy.nih.gov Contact a doctor if: [...] provider. Document Revised: 01/25/2021 Document Reviewed: 01/25/2021 [employer] Patient Education ?? 2021 [employer]. Emergency Awareness and Preventative Care STROKE is an EMERGENCY Every Minute Counts Act FAST and Check for these signs: FACE Does the face look uneven? ARM Does one arm drift down? SPEECH Does their speech sound strange? TIME Call at any sign of stroke Stroke Risk Factors Atrial Fibrillation (irregular heartbeat) Diabetes Family history of stroke Heart Disease Heavy alcohol use High Blood Pressure High Cholesterol Physical inactivity and obesity Smoking Cigarette Smoking The facts are clear, cigarette smoking will shorten your life. Smoking can cause many illnesses along the way. As a healthcare provider, we recommend that you stop smoking. Assistance with quitting is available by contacting 2-179-ILLZ-NOW. This is a free resource providing counseling, support, and referral. Or you may contact your personal physician. National Suicide Prevention Lifeline: The National Suicide Prevention Lifeline is a national network of local crisis centers that provides free and confidential emotional support to people in suicidal crisis or emotional distress 24 hours a day, 7 days a week. Don't Wait! Stop a Heart Attack Before it Starts What is a heart attack? A heart attack is damage or to a part of the heart from severely decreased or lack of blood flow to the heart. Over time, arteries can become narrow from the buildup of fat and cholesterol, which is called plaque. The plaque can rupture causing a blood clot to form. When the blood clot forms, the artery can become severely narrowed or completely blocked, causing a heart attack. Heart attack is the leading cause of in the [place]. 85% of muscle damage occurs within the first 2 hours. Delay in the recognition of heart attack symptoms increases the chances of . Know the early symptoms of a heart attack: Nausea Feeling of fullness in chest Jaw Pain Pain that travels down one or both arms Fatigue/being tired Anxiety Back Pain Chest pressure, squeezing, or discomfort Shortness of breath Sweating, or a cold sweat Feeling of impending doom There are unusual signs of a heart attack, too! Women, the elderly, and diabetics may present with atypical symptoms: Fainting/dizziness Weakness Confusion Risk Factors for a Heart Attack Some heart disease risk factors, such as age and family history, cannot be changed. Others, like smoking and lack of exercise, can be changed. Smoking High Cholesterol High Blood Pressure Family History Obesity Age Gender (Males are at higher risk) Lack of Exercise Diabetes Diet Stress Excessive Alcohol Intake If you or someone you know is experiencing the signs and symptoms of a heart attack, DON???T DELAY. Call immediately and seek help. If someone collapses, perform CPR! Do not attempt to drive if you are having symptoms of heart attack. Hands-Only CPR Why Hands-Only CPR? Hands-Only CPR has been shown to be as effective as conventional CPR for cardiac arrests that occur outside of a hospital. Survival depends on immediately receiving CPR from someone nearby. How do you perform Hands-Only CPR? There are two easy steps: Call if you see a teen or adult collapse Push hard and fast in the center of the chest at a beat of 100 beats per minute. Save a life! 4 WAYS TO GET AHEAD OF SEPSIS SEPSIS is a MEDICAL EMERGENCY. Time matters! Infections put you and your family at risk for a life-threatening condition called sepsis. Sepsis is the body's extreme response to an infection. It is life-threatening, and without timely treatment, sepsis can rapidly lead to tissue damage, organ failure, and . Sepsis happens when an infection you already have-in your skin, lungs, urinary tract or somewhere else-triggers a chain reaction throughout your body. 1 PREVENT INFECTIONS Take good care of chronic conditions. Talk to your doctor about getting the recommended vaccines. 2 PRACTICE GOOD HYGIENE Wash your hands frequently. Keep cuts or open sores clean and covered until they are healed. 3 KNOW THE SYMPTOMS Confusion or disorientation Shortness of breath High heart rate Fever, shivering, or feeling very cold Extreme pain or discomfort Clammy or sweaty skin 4 ACT FAST Get medical care IMMEDIATELY if you suspect sepsis or if you have an infection that is not getting better or is getting worse. To learn more about sepsis and how to prevent infections, visit www.cdc.gov/sepsis. Test Results Laboratory or Other Results This Visit (last charted value for your 03/27/2022 visit) No Laboratory or Other Results This Visit Patient Name:HUGH KING I have received and understand this information and was given the opportunity to ask questions. Patient/Body Make Up Artist Name: Patient/Body Make Up Artist Signature: Relationship to Patient: Clinician/Hospital Body Make Up Artist Signature: Date: Electronically signed by Dorinda Hyatt Conversion Social Media Marketing Analyst Cerner at 10/22/2022 6:06 PM CDT documented in this encounter Plan of Treatment Not on file documented as of this encounter Visit Diagnoses Not on filedocumented in this encounter Care Teams Principal Process Engineer Relationship Specialty Start Date End Date Juancarlos Ricardo MD [address] [place] [id number] PCP - General Family Medicine 03/16/24 documented as of this encounter
[2025-02-24 12:11] LABS: Hematocrit 52.0 % (42.0-52.0); Hemoglobin 16.1 g/dL (14.1-18.0); Immature Granulocytes % 1.4 %; Mean Corpuscular HGB Conc 31.0 g/dL (31.8-35.4); Mean Corpuscular Hemoglobin 25.7 pg (27.0-31.2); Mean Corpuscular Volume 82.9 fl (80-94); Nucleated Red Blood Cells % 0 %; Platelet Count 470 K/mm3 (142-424); Red Blood Count 6.27 M/mm3 (4.60-6.20); Red Cell Distribution Width-SD 45.9 fL; White Blood Count 9.5 K/mm3 (4.8-10.8)
[2025-02-24 12:34] LABS: Alanine Aminotransferase 22 U/L (12-78); Albumin Level 4.6 g/dl (3.5-5.0); Alkaline Phosphatase 48 U/L (38-126); Anion Gap 17.2 mEq/L (5-15); Aspartate Amino Transferase 25 U/L (17-59); Bilirubin,Direct 0.3 mg/dl (0.0-0.4); Bilirubin,Indirect 0.5 mg/dL (0.0-0.9); Bilirubin,Total 0.8 mg/dl (0.2-1.3); Bilirubin,Unconjugated 0.5 mg/dL (0.0-1.1); Blood Urea Nitrogen 32 mg/dl (9-20); Calcium 9.4 mg/dl (8.4-10.2); Carbon Dioxide 29 mmol/L (22.0-30.0); Chloride 100 mmol/L (98-107); Cholesterol 146 mg/dl (140-200); Creatinine,Serum 1.10 mg/dl (0.66-1.25); Estimated Glomerular Filt Rate 66 ml/min (>60); GFR (African American) 80 ML/MIN (>60); Glucose 189 mg/dl (74-100); HDL Cholesterol 30 mg/dl (40-60); Potassium 4.2 mmoL/L (3.5-5.1); Sodium 142 mmol/L (136-145); Total Protein,Serum 6.6 g/dl (6.3-8.2); Triglycerides 238 mg/dl (30-150)
== END 2025-02-24 23:59 | disposition home or self-care (01) ==
LOC: LAB 11:32
PROVIDERS: PCP Family Medicine; Visit Provider Nurse Practitioner
DX: I25.10 Atherosclerotic heart disease of native coronary artery without angina pectoris (principal); I10 Essential (primary) hypertension
CPT/HCPCS: 36415; 80048; 80061; 80076; 85025

== ENCOUNTER 2025-06-29 12:54 | Outpatient (CLI) | payer MEDICARE, MEDICAID, SELFPAY ==
--- OUTSIDE RECORDS SUMMARY | 2025-04-08 02:00 | XMS_ITS | Encounter Summary ---
Author Organization [employer] ([place], [place], [place], [place], [place]) Address [address] [place] [address] Care Team Providers Care Conservation Enforcement Officer Name Role Phone Zackery Meadows MD Primary Care Provider [phone] Reason for Visit * Reason Comments Pacemaker /ICD Home Monitoring Encounter Details Date Type Department Care Team (Late st Contact Info) Description 04/08/2025 3:00 AM EDT Clinical Support [facility] Electrophysiology [address] [place] [phone] Matt Garcia MD [address] [place] [address] [address] [place] [address] Encounter for adjustment or management of cardiac device (Primary Dx); AF (paroxysmal atrial fibrillation) (HCC); HFrEF (heart failure with reduced ejection fraction) (HCC); MRI safe cardiac pacemaker in situ; SSS (sick sinus syndrome) ([facility]) Social History Tobacco Use Types Packs/Day Years [...] Date Tal rded Speak language other than Chinese at home Not on file 03/16/2024 Want [...] cardiac device- Primary AF (paroxysmal atrial fibrillation) ([facility]) Atrial fibrillation HFrEF (heart failure with reduced ejection fraction) ([facility]) MRI safe cardiac pacemaker in situ SSS (sick sinus syndrome) ([facility]) Sinoatrial node dysfunction documented in this encounter Care Teams Conservation Enforcement Officer Relationship Specialty Start Date End Date Zackery Meadows MD [address] [place] [phone] PCP - General Family Medicine 03/16/24 documented as of this encounter
--- OUTSIDE RECORDS SUMMARY | 2025-05-20 00:11 | XMS_ITS | Continuity of Care Document ---
Author Organization [facility] Phone Care Team Providers Care Computed Tomography Technician Name Role Phone ZACKERY RICARDO Primary Care ZACKERY RICARDO Primary Attending ZACKERY RICARDO Unavailable ZACKERY RICARDO Admitting ALLERGIES AND ADVERSE REACTIONS ALLERGIES AND ADVERSE REACTIONS Code System Allergy Substance Adverse Reaction Date Reaction (Severity) Comment Status Reported By Updated By 7984 RXNorm PENICILLIN Rash (Moderate) Shock active [id number] on October 26, 2024 4:38:03 AM [place] 2551 RXNorm CIPROFLOXACIN Adverse reaction to substance Unknown reason active [id number] on October 26, 2024 4:38:03 AM [place] [id number] SNOMED CT CEPHALOSPORINS Adverse reaction to substance Unknown reaction active [id number] on October 26, 2024 4:38:[place] [address] RXNorm Bactrim October 26, 2024 4:00:00 AM UTC Rash Shock active [id number] on October 26, 2024 4:38:02 AM [place] FAMILY HISTORY RELATION: Father Status: Cause of : Cerebrovascular accident Age at : 75 SNOMED-CT Diagnosis Age At Onset Information not available RELATION: Mother Status: Cause of : Old-age Age at : Unknown SNOMED-CT Diagnosis Age At Onset Information not available RESULTS Patient: FERNANDO DONALDSON Date of : 1955 LABORATORY RESULTS Information is not available LABORATORY NARRATIVE RESULTS Information is not available RADIOLOGY RESULTS ORDER 100: US THYROID (LOINC : 98544-6) ORDER DATE: May 18, 2025 6:01:00 PM UTC PERFORMING LAB: [address] [place] [id number] Final Result Date: May 19, 2025 8:30:[address] [place] [address] Name: MENDOZA KING Exam Date: 05/18/2025 : 1955 Age 70 years Gender: M Physician: Zackery Ricardo Facility: [facility] HSV: Outpatient Exam: US THYROID Procedure: US THYROID Exam Date: 05/18/2025 1:07 PM [facility] Indication: lt thyroid nodule Technique: Multiple cummings scale images of the thyroid gland were obtained and color images were also obtained. COMPARISON: Correlation with CTA neck from 09/10/2023 Findings: The thyroid gland appears normal in size, with heterogeneous echogenicity. The color images demonstrate no increased vascularity in the thyroid lobes. The right lobe measures 2.2 x 2.4 x 5.3 cm The left lobe measures 3.2 x 2.4 x 6.5 cm The isthmus measures 0.8 cm Thyroid nodules are seen as follow: Right lobe: Nodule #1 *Size: 1.4 x 1.3 x 1.7 cm *Location: Upper lobe *Echogenicity: Hypoechoic *Composition: Cystic and solid * Margins: Smooth , [id number]-[id number] * Calcification: No calcifications seen-0 * Shape: The nodule is wider than tall-0 TI-RADS Category 3: Mildly suspicious Follow if ?1.5 cm (at 1, 3, 5 years) Left lobe: Nodule #1 *Size: 2.2 x 1.7 x 2.0 cm *Location: Upper lobe *Echogenicity: Mixed mainly isoechoic *Composition: Solid * Margins: Smooth , afne-obbbxwj-3 * Calcification: No calcifications seen-0 * Shape: The nodule is wider than tall-0 TI-RADS Category 3: Mildly suspicious Follow if ?1.5 cm (at 1, 3, 5 years) Nodule #2 *Size: 1.9 x 1.8 x 2.1 cm *Location: Mid gland *Echogenicity: Isoechoic *Composition: Solid * Margins: Smooth , apaj-tneanrg-1 * Calcification: No calcifications seen-0 * Shape: The nodule is wider than tall-0 TI-RADS Category 3: Mildly suspicious Follow if ?1.5 cm (at 1, 3, 5 years) Legally authenticated by SIOMARA Conway 2025-05-19 15:30:15 Impression: Multiple bilateral TI-RADS 3 (mildly suspicious) thyroid nodules as detailed above. 1. Follow-up thyroid ultrasound in 1, 3, and 5 years is recommended for surveillance, per ACR TI-RADS guidelines. 2. Heterogeneous thyroid parenchyma which may reflect underlying chronic thyroiditis. Electronically signed by: Danuta Jean Baptiste MD 05/19/2025 03:36 PM [facility] Dictated By: DANUTA JEAN BAPTISTE Transcribed By: Transcribed On: 05/19/2025 3:30 PM Electronically signed by: DANUTA JEAN BAPTISTE 05/19/2025 Thank you for referring MENDOZA KING to [facility]. Legally authenticated by SIOMARA Conway 2025-05-19 15:30:15 PATHOLOGY NARRATIVE RESULTS Information is not available MICROBIOLOGY RESULTS No Micro Labs/Results Exist for Patient BLOOD ADMIN RESULTS Information is not available MEDICATIONS HOME MEDICATIONS Status RXNORM NDC Medication Dose Route Frequency Dates Comments Reported By Updated By Drug Treatment Unknown DISCHARGE MEDICATIONS Status RXNORM NDC Medication Dose Route Frequency Dates Dis pense Data Comments Physician Updated By No Discharge Medication Info rmation Available INPATIENT MEDICATIONS Status RXNORM NDC Medication Dose Route Frequency Rat e Quantity Dates Indication Dispense Data Comments Physician Updated By No Inpatient Medication Info rmation Available SOCIAL HISTORY SOCIAL HISTORY - Smoking Status SNOMED-CT Social History Element Description Effective Dates Offered Cessation Comment Updated By [id number] Historical Tobacco smoking status Never Smoked [id number] on October 26, 2024 4:38:50 AM [facility] [id number] Historical Tobacco smoking status Former Smoker [id number] on May 31, 2024 1:37:45 AM [facility] [id number] Historical Tobacco smoking status Current Every Day Smoker [id number] on July 04, 2019 12:47:55 PM [facility] [id number] Historical Tobacco smoking status Current Some Day Smoker End: October 06, 2017 4:00:00 AM [facility] Yes [id number] on October 14, 2017 2:44:15 AM [facility] SOCIAL HISTORY - Gender Sex: Male SOCIAL HISTORY - Status : status i nformation is not available Intention in Next Year: intention information is not available SOCIAL HISTORY - Assessments Code System Description Status Date Value of Assessment Updated By Comment Assessment Information is no t available SOCIAL HISTORY - [place] Affiliation [place] information is not av ailable SOCIAL HISTORY - Legal Sex Legal Sex information is not available SOCIAL HISTORY - Sexual Behavior Sexual Orientation Gender Identity SNOMED-CT Description SNO MED -CT Description Activity Level No of Partners Partner Type UpdatedBy Information is not available SOCIAL HISTORY - Occupation Occupation information is no t available HEALTH CONCERNS Problems Concern Status Health Concern problem infor mation not available. Smoking Status Status Years Used Consumed packs p er day Health Concern smoking histo ry information not available. Family History Concern Status Health Concern family histor y information not available. ENCOUNTERS ENCOUNTER INFORMATION Reason for Visit US THYROID Admission May 18, 2025 5:52:00 PM [place] [id number] Discharge May 18, 2025 5:52:00 PM [facility] DISCHARGED TO HOME OR SELF CARE ENCOUNTER DIAGNOSES Notes information is not sherley ilable. Code System Diagnosis Onset Date Diagnosis information is not available. 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 [id number] on May 20, 2025 5:10:47 AM [facility] CARE TEAM Care Computed Tomography Technician Role ZACKERY RICARDO Primary Care ZACKERY RICARDO Primary Attending ZACKERY RICARDO Referring ZACKERY RICARDO Admitting CARE TEAM CARE power system electrical engineer Role on Team Location Telecom Status Start Date End Jhonny e Updated By HALEIGH GARCIA PCP normal May 17, 2025 3:55:57 PM [facility] May 18, 2025 5:52:00 PM [facility] [id number] on May 17, 2025 3:55:57 PM [facility] HALEIGH GARCIA Referring normal May 17, 2025 3:55:57 PM [facility] May 18, 2025 5:52:00 PM [facility] [id number] on May 17, 2025 3:55:57 PM [facility] HALEIGH GARCIA Attending normal May 17, 2025 3:55:57 PM [facility] May 18, 2025 5:52:00 PM [facility] [id number] on May 17, 2025 3:55:57 PM [facility] HALEIGH GARCIA Admitting normal May 17, 2025 3:55:57 PM [facility] May 18, 2025 5:52:00 PM [facility] [id number] on May 17, 2025 3:55:57 PM [facility]
--- OUTSIDE RECORDS SUMMARY | 2025-06-01 09:23 | XMS_ITS | Continuity of Care Document ---
Author Organization [facility] Phone Care Team Providers Care Poultry Hatchery Supervisor Name Role Phone JULITA MOHAN Admitting JUANCARLOS RICARDO Primary Care JULITA MOHAN Unavailable JULITA MOHAN Primary Attending ALLERGIES AND ADVERSE REACTIONS ALLERGIES AND ADVERSE REACTIONS Code System Allergy Substance Adverse Reaction Date Reaction (Severity) Comment Status Reported By Updated By 7984 RXNorm PENICILLIN Rash (Moderate) Shock active [id number] on May 31, 2025 3:30:20 AM [facility] 2551 RXNorm CIPROFLOXACIN Adverse reaction to substance Unknown reason active [id number] on May 31, 2025 3:30:21 AM [facility] [id number] SNOMED CT CEPHALOSPORINS Adverse reaction to substance Unknown reaction active [id number] on May 31, 2025 3:30:21 AM [facility] 63277 RXNorm Bactrim October 26, 2024 4:00:00 AM [place] Rash Shock active [id number] on May 31, 2025 3:30:21 AM [facility] FAMILY HISTORY RELATION: Father Status: Cause of : Cerebrovascular accident Age at : 75 SNOMED-CT Diagnosis Age At Onset Information not available RELATION: Mother Status: Cause of : Old-age Age at : Unknown SNOMED-CT Diagnosis Age At Onset Information not available MEDICATIONS HOME MEDICATIONS Status RXNORM WAC Medication Dose Route Frequency Dates Comments Reported By Updated By Active 118374 47845 96721 1 albuterol (VENTOLIN) 0.083% 2.5 MG/3ML 2.5 MG INHALE D RTQIDPRN Last Dose: [id number] on May 31, 2025 3:30:20 AM UTC Active FreeT extMe d ALPRAZolam (XANAX) 1.0 MG ORAL QIDPRN Last Dose: [id number] on May 31, 2025 3:30:21 AM [place] Active 593129 60456 89034 1 atorvastatin (LIPITOR) 20.0 MG ORAL BEDTIME Last Dose: [id number] on May 31, 2025 3:30:21 AM UT Active 5758474 17071 66944 2 Breztri Aerosphere 160-9-4.8 mcg/actuatio n HFA Aerosol Inhaler 2.0 INH INHALE D BID Last Dose: Twice a day [id number] on May 31, 2025 3:30:21 AM UTC Active FreeT extMe d carvedilol (COREG) 25.0 MG ORAL BEDTIME Last Dose: [id number] on May 31, 2025 3:30:21 AM UTC Active FreeT extMe d Dexilant Oral Capsule Delayed Release 30 MG 60.0 MG ORAL DAILY Last Dose: [id number] on May 31, 2025 3:30:21 AM UTC Active FreeT extMe d digoxin (LANOXIN) 0.125 MCG ORAL DAILY Last Dose: [id number] on May 31, 2025 3:30:21 AM UTC Active FreeT extMe d dilTIAZem ER (CARDIZEM CD) 240.0 MG ORAL DAILY Last Dose: [id number] on May 31, 2025 3:30:22 AM UTC Active FreeT extMe d diphenhydrAM INE (BENADRYL) 25.0 MG ORAL BEDTIMEPRN Last Dose: [id number] on May 31, 2025 3:30:22 AM UTC Active FreeT extMe d furosemide (LASIX) 40.0 MG ORAL BID Last Dose: [id number] on May 31, 2025 3:30:22 AM UTC Active FreeT extMe d gabapentin (NEURONTIN) 800.0 MG ORAL TID Last Dose: [id number] on May 31, 2025 3:30:22 AM UTC Active FreeT extMe d glimepiride (AMARYL) 4.0 MG ORAL BID Last Dose: [id number] on May 31, 2025 3:30:22 AM UTC Active FreeT extMe d loratadine (CLARITIN) 10.0 MG ORAL DAILY Last Dose: [id number] on May 31, 2025 3:30:22 AM [facility] Active 329383 12803 33261 1 meclizine (ANTIVERT) 25.0 MG ORAL Q8HPRN Last Dose: [id number] on May 31, 2025 3:30:22 AM [facility] Active FreeT extMe d Ozempic 2.0 MG SUBCUT ANEOUS QTUES Last Dose: [id number] on May 31, 2025 3:30:22 AM [facility] Active 8001399 43442 59998 0 Percocet Oral Tablet 10-325 MG 1.0 TAB ORAL 5XD Last Dose: [id number] on May 31, 2025 3:30:22 AM [facility] Active 5869261 35383 83465 0 rivaroxaban (XARELTO) 15.0 MG ORAL DAILY Last Dose: [id number] on May 31, 2025 3:30:22 AM [facility] Active FreeT extMe d rOPINIRole (REQUIP) 2.0 MG ORAL BEDTIME Last Dose: [id number] on May 31, 2025 3:30:22 AM [facility] Active 604687 22933 47208 0 spironolacto ne (ALDACTONE) 25.0 MG ORAL BID Last Dose: [id number] on May 31, 2025 3:30:23 AM UT Active FreeT extMe d tamsulosin (FLOMAX) 0.4 MG ORAL DAILY Last Dose: [id number] on May 31, 2025 3:30:23 AM [facility] Active 507993 98246 86354 1 torsemide (DEMADEX) 40.0 MG ORAL DAILY Last Dose: [id number] on May 31, 2025 3:30:23 AM UT Active FreeT extMe d Xarelto oral 0.0 Last Dose: [id number] on May 31, 2025 3:30:23 AM UT Active FreeT extMe d Xopenex HFA Inhalation Aerosol 45 MCG/ACT 2.0 PUF INHALE D QID Last Dose: [id number] on May 31, 2025 3:30:23 AM [facility] DISCHARGE MEDICATIONS Status RXNORM NDC Medication Dose Route Frequency Dates Dis pense Data Comments Physician Updated By No Discharge Medication Info rmation Available INPATIENT MEDICATIONS Status RXNORM ND Medication Dose Route Frequency Rat e Quantity Dates Indication Dispense Data Comments Physician Updated By Jose inued 0090 4678 744 magnesium citrate (CITROMA) 1.745 GM/30ML SOLN 300.0 ML ONE TIME ONLY Start: 2024 3:38:0 0 AM UT End: 2024 3:38:0 0 AM UT KIMBERLEE Lee INTERFAC ED on May 31, 2025 3:37:00 AM UT Jose inued 009 4640 761 bisacodyl (DULCOLAX) EC 5 MG TBEC 5.0 MG ORAL ONE TIME ONLY Start: 2024 3:38:0 0 AM UT End: 2024 3:38:0 0 AM [place] MOHAN JULITA Lee INTERFAC ED on May 31, 2025 3:37:00 AM [facility] SOCIAL HISTORY SOCIAL HISTORY - Smoking Status SNOMED-CT Social History Element Description Effective Dates Offered Cessation Comment Updated By [id number] Current Tobacco smoking status Never Smoked [id number] on May 31, 2025 3:36:14 AM [facility] [id number] Historical Tobacco smoking status Former Smoker [id number] on May 31, 2024 1:37:45 AM [facility] [id number] Historical Tobacco smoking status Current Every Day Smoker [id number] on July 04, 2019 12:47:55 PM [facility] [id number] Historical Tobacco smoking status Current Some Day Smoker End: October 06, 2017 4:00:00 AM [place] Yes [id number] on October 14, 2017 2:44:15 AM [facility] SOCIAL HISTORY - Gender Sex: Male SOCIAL HISTORY - Status : status i nformation is not available Intention in Next Year: intention information is not available SOCIAL HISTORY - Assessments Code System Description Status Date Value of Assessment Updated By Comment Assessment Information is no t available SOCIAL HISTORY - [place] Affiliation [place] information is not av ailable SOCIAL HISTORY - Legal Sex Legal Sex information is not available SOCIAL HISTORY - Sexual Behavior Sexual Orientation Gender Identity SNOMED-CT Description SNO MED -CT Description Activity Level No of Partners Partner Type UpdatedBy Information is not available SOCIAL HISTORY - Occupation Occupation information is no t available VITAL SIGNS PATIENT VITAL SIGNS This section displays the mo st recent value for each vital sign as of June 01, 2025 2:23:13 PM UTC Loinc Code Vital Sign Activity Date Result Updated By 8302-2 Body height May 31 3:33:36 AM UTC 180.34 cm (71.0 in) [id number] on May 31, 2025 3:33:36 AM UTC 66571-2 Body mass index (BMI ) [Ratio] May 31, 2025 3:33:36 AM UTC 43.324 kg/m2 3140-1 Body Surface Area Derived From Formula May 31, 2025 3:33:36 AM UTC 2.5428 m2 8310-5 Body temperature May 31 3:31:00 AM UTC 98.1 [degF] 56443-6 Body weight Measured May 3:33:36 AM UTC 140.9 kg (311.0 lb) [id number] on May 31, 2025 3:33:36 AM UTC 8462-4 Diastolic blood pressure May 31, 2025 3:31:00 AM UTC 86.0 mm[Hg] 8867-4 Heart rate May 31 3:31:00 AM UTC 97 /min 90222-0 Oxygen saturation in Arterial blood by Pulse oximetry May 31, 2025 3:31:00 AM UTC 95.0 % 9279-1 Respiratory rate May 31 3:31:00 AM UTC 18 /min 8480-6 Systolic blood pressure May 31, 2025 3:31:00 AM UTC 140.0 mm[Hg] PEDIATRIC GROWTH CHART - VITAL SIGNS This section displays Head C ircumference Percentile, Weight for Length Percentile and BMI Percentile Loinc Code Pediatric Measure Age (Months) Result Updat ed By No Pediatric Growth Chart Pe rcentile Information Available. HEALTH CONCERNS Problems Concern Status Health Concern problem infor mation not available. Smoking Status Status Years Used Consumed packs p er day Health Concern smoking histo ry information not available. Family History Concern Status Health Concern family histor y information not available. ENCOUNTERS ENCOUNTER INFORMATION Reason for Visit STOMACH PAIN Admission May 31, 2025 3:17:00 AM UTC [address] [address] Discharge May 31, 2025 3:47:00 AM UTC DISCHARGED TO HOME OR SELF CARE ENCOUNTER DIAGNOSES Notes information is not sherley ilable. Code System Diagnosis Onset Date Diagnosis information is not available. ABSTRACT DIAGNOSES Code System Diagnosis Updated By Abatement Date R10.84 ICD10 GENERALIZED ABDOMINAL PAIN Q XL3204 on June 01, 2025 2:22:35 PM UTC K59.00 ICD10 CONSTIPATION, UNSPECIFIED QH I3291 on June 01, 2025 2:22:35 PM UTC M79.604 ICD10 PAIN IN RIGHT LEG [id number] on June 01, 2025 2:22:35 PM UTC K59.00 ICD10 CONSTIPATION, UNSPECIFIED QH I3291 on June 01, 2025 2:22:35 PM UTC I48.91 ICD10 UNSPECIFIED ATRIAL FIBRILLAT ION [id number] on June 01, 2025 2:22:35 PM UTC G89.29 ICD10 OTHER CHRONIC PAIN [id number] o n June 01, 2025 2:22:35 PM UT M54.9 ICD10 DORSALGIA, UNSPECIFIED QHI32 91 on June 01, 2025 2:22:35 PM UTC J44.9 ICD10 CHRONIC OBSTRUCT CHAR PULMONARY DISEASE, UNSPECIFIED [id number] on June 01, 2025 2:22:35 PM UTC I25.10 ICD10 ATHEROSCLEROTIC HEART DISEASE OF [place] CORONARY ARTERY WITHOUT ANGINA PECTORIS [id number] on June 01, 2025 2:22:35 PM UTC E11.9 ICD10 TYPE 2 DIABETES MELLITUS WITHOUT COMPLICATIONS [id number] on June 01, 2025 2:22:35 PM UT I10 ICD10 ESSENTIAL (PRIMA RY) HYPERTENSION [id number] on June 01, 2025 2:22:35 PM UTC E66.01 ICD10 MORBID (SEVERE) OBESITY DUE TO EXCESS CALORIES [id number] on June 01, 2025 2:22:35 PM UTC Z88.2 ICD10 ALLERGY STATUS TO SULFONAMID ES [id number] on June 01, 2025 2:22:35 PM UTC Z88.1 ICD10 ALLERGY STATUS T O OTHER ANTIBIOTIC AGENTS [id number] on June 01, 2025 2:22:35 PM UTC Z88.0 ICD10 ALLERGY STATUS TO PENICILLIN [id number] on June 01, 2025 2:22:35 PM UTC Z79.899 ICD10 OTHER [facility] (CURRENT) DRUG THERAPY SPU5363 on June 01, 2025 2:22:35 PM UTC Z79.84 ICD10 AERONAUTICAL DESIGN ENGINEER (CURRE NT) USE OF ORAL HYPOGLYCEMIC DRUGS [id number] on June 01, 2025 2:22:35 PM UT Z79.01 ICD10 AERONAUTICAL DESIGN ENGINEER (CURRE NT) USE OF ANTICOAGULANTS [id number] on June 01, 2025 2:22:35 PM UT Z79.51 ICD10 AERONAUTICAL DESIGN ENGINEER (CURRE NT) USE OF INHALED STEROIDS [id number] on June 01, 2025 2:22:35 PM UT Z79.85 ICD10 LONG-TERM (CURRE NT) USE OF INJECTABLE NON-INSULIN ANTIDIABETIC DRUGS [id number] on June 01, 2025 2:22:35 PM [facility] CARE TEAM Care Poultry Hatchery Supervisor Role JULITA MOHAN Admitting JUANCARLOS RICARDO Primary Care JULITA MOHAN Referring JULITA MOHAN Primary Attending CARE TEAM CARE aerospace assembler Role on Team Location Telecom Status Start Date End Jhonny e Updated By KIMBERLEE Lee APRN Referring normal May 31, 2025 3:37:31 AM [facility] May 31, 2025 3:47:00 AM [facility] [id number] on May 31, 2025 3:37:31 AM [facility] KIMBERLEE Lee APRN Attending normal May 31, 2025 3:37:31 AM [facility] May 31, 2025 3:47:00 AM [facility] [id number] on May 31, 2025 3:37:31 AM [facility] KIMBERLEE Lee APRN Admitting normal May 31, 2025 3:37:31 AM [facility] May 31, 2025 3:47:00 AM [facility] [id number] on May 31, 2025 3:37:31 AM [facility] GARCIA [facility] normal May 31, 2025 3:18:00 AM [facility] May 31, 2025 3:47:00 AM [facility] [id number] on May 31, 2025 3:37:31 AM [facility]
--- NOTE | 2025-06-29 | CA_ITS ---
APPROVED REPORT Exam: Pharmacologic Technologist: Cherie Lawrence Stress Nurse: Obdulia DENISE, RN Ht: 5 ft 10 in Wt: 313 lbs BSA: 2.53 m2 HR: 90 bpm BP: 134/84 mmHg Indications: Dyspnea, Known coronary artery disease Stress Test Details Test: Lexiscan HR Resting HR: 90 bpm Max Heart Rate (APMHR): 150.541669 bpm Max HR Achieved: 115 bpm Target HR (85% APMHR): 127.970950 bpm % of APMHR: 76.67 Recovery HR: 101 bpm BP Resting BP: 134.0/84.0 mmHg Max BP: 144.0/71.0 mmHg Recovery BP: 142.0/88.0 mmHg ECG Resting ECG: Atrial fibrillation Stress ECG Conclusion Lungs clear to auscultation Symptoms: none Arrhythmias/Ectopy: PVC/Ventricular couplets ST-T Changes: Conclusion: Nondiagnostic ECG/Lexiscan Electronically signed by : Lauryn Andersen MD 06/30/2025 21:11:29
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
--- OUTSIDE RECORDS SUMMARY | 2025-06-29 12:59 | XMS_ITS | Referral Summary ---
Author Organization [facility] ([place], [place], [place], [place], [place]) Address [address] [place] [address] Care Team Providers Care Hiv Nurse Name Role Phone Zackery Meadows MD Primary Care Provider [phone] Encounters Date Type Department Care Team Description 04/08/2025 3:00 AM EDT Clinical Support [facility] Electrophysiology [address] [place] [address] Matt Garcia MD Encounter for adjustment or management of cardiac device (Primary Dx); AF (paroxysmal atrial fibrillation) ([facility]); HFrEF (heart failure with reduced ejection fraction) ([facility]); MRI safe cardiac pacemaker in situ; SSS (sick sinus syndrome) ([facility]) from Last 3 Months [...] Date Tal rded Speak language other than Belizean at home Not on file 03/16/2024 Want [...] on file Medical Devices Implanted Type Area Water Fabricator Operator Device Identifier Shelf Expiration Date Model / Serial / Lot Pacemakers-01/10 Implanted:12/2016 (Quantity not on file) Pacemakers [employer] 1272 / [id number] / Insurance [facility] MCR ADV DUAL COMPLETE MEDICAID QMB Care Teams Hiv Nurse Relationship Specialty Start Date End Date Zackery Meadows MD [address] [place] [address] PCP - General Family Medicine 03/16/24
--- OUTSIDE RECORDS SUMMARY | 2025-06-29 12:59 | XMS_ITS | Clinical Summary ---
Author Organization [employer] ([place], [place], [place], [place], [place]) Address [address] [place] [address] Care Team Providers Care General Forecaster Name Role Phone Zackery Meadows MD Primary Care Provider [phone] Allergies Active Allergy Reactions Criticality Noted Date [...] Description 04/08/2025 3:00 AM EDT Clinical Support [facility] Electrophysiology [address] [place] [address] Matt Garcia MD Encounter for adjustment [...] Date Tal rded Speak language other than [place]se at home Not on file 03/16/2024 Want [...] 1955 Sigmoidoscopy 1955 Depression Screening (12+) 1967 Tobacco Cessation Counseling and Screening (12+) 1967 Hepatitis C Screening 1973 Shingles Vaccine (Zoster) (1 of 2) 2005 Respiratory Syncytial Virus (RSV) Adult or (1 - Risk 60-74 years 1-dose series) 2015 Falls Risk Screening 07/08/2024 Medicare Initial AWV [id number] 07/09/2024 COVID-19 VACCINE (3 - 2024- season) 2025, 09/22/2020 Influenza Vaccine (#1) 2025 , 04/09/2023, 04/02/2022 DTAP/TDAP/TD VACCINES (2 - Tdap) 03/11/2034 03/11/20 24 Pneumococcal 50+ years Completed 03/28/2020, 2016 Medical Devices Implanted Type Area Jump Roll Operator Device Identifier Shelf Expiration Date Model / Serial / Lot Pacemakers-01/10 Implanted:12/2016 (Quantity not on file) Pacemakers [employer] 1272 / [id number] / Insurance [facility] ADV DUAL COMPLETE MEDICAID QMB Care Teams General Forecaster Relationship Specialty Start Date End Date Zackery Meadows MD [address] [place] [address] PCP - General Family Medicine 03/16/24
--- OUTSIDE RECORDS SUMMARY | 2025-06-29 12:59 | XMS_ITS | Clinical Summary ---
Author Organization [facility] Address [address], [address] [place] [address] Care Team Providers Care Social Insurance Analyst Name Role Phone Unavailable Primary Care Provider [...]
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
--- OUTSIDE RECORDS SUMMARY | 2025-06-29 12:59 | XMS_ITS | Clinical Summary ---
Author Organization [facility] Address [address] [place] [address] Care Team Providers Care Health Type Technician Name Role Phone Unavailable Primary Care Provider [...] of 2) 2005 INFLUENZA VACCINE (#1) 2025 CT Colonography Completed HEP A VACCINE Aged Out No longer elig ible based on patient's age to complete this topic HIB VACCINE Aged Out No longer eligi ble based on patient's age to complete this topic ROTOVIRUS VACCINE Aged Out No longer eligible based on patient's age to complete this topic Insurance MEDICARE Member Subscriber Plan / Payer (Ef fective for All Dates) Name:HUGH KING R Member ID:[id number] Relation to Subscriber:Self Name:Hugh King Subscriber ID:[id number] Payer ID:Not on file Group ID:Not on file Type:Not on file Address: [facility] [address] MEDICAL ASSISTANCE MEDICARE Member Subscriber Plan / Payer (Ef fective for All Dates) Name:HUGH KING R Member ID:[id number] Relation to Subscriber:Self Name:MyronEvelioby Subscriber ID:[id number] Payer ID:Not on file Group ID:Not on file Type:Not on file Address: [address] MEDICAL ASSISTANCE MEDICARE Member Subscriber Plan / Payer (Ef fective for All Dates) Name:HUGH KING R Member ID:[id number] Relation to Subscriber:Self Name:Hugh King Subscriber ID:[id number] Payer ID:Not on file Group ID:Not on file Type:Not on file Address: [address] MEDICAL ASSISTANCE
--- NOTE | 2025-06-29 13:00 | NM_ITS ---
APPROVED REPORT Exam: Nuclear Stress Test Indication: soa Patient Location: Outpatient Stress Tech: Cherie Lawrence [place] Tech:Suzie MedranoJL, RT (R)(N) Ht: 5 ft 11 in Wt: 310 lbs HR: 97 bpm BP: 134/84 mmHg BSA: 2.54 m2 TID: 1.11 BMI: 43.2 History: soa Procedure: Patient received 0.4 mg of intravenous Lexiscan, resting heart rate 97 bpm, resting blood pressure 134/84 mmHg, with Lexiscan maximum heart rate achieved was 105 bpm which is 85 % of the maximum predicted heart rate and blood pressure was 144/71 mmHg. With Lexiscan, patient denied any complaint of chest pain. The patient was not able to lay on his abdomen for prone images. Cardiac Stress and Resting SPECT Images: Cardiac Stress and Resting SPECT images were obtained using technetium 99m Myoview 31.3 mCi stress and 10.28 mCi at rest. The patient was unable to lie on his abdomen. Therefore, prone stress imaging could not be performed. This may affect the diagnostic interpretation of the study findings. Resting and stress imaging in supine positions demonstrate a large sized, moderate, predominantly reversible perfusion defect in the inferior LV wall. Gated imaging demonstrates moderate reduction in global LV systolic function. LVEF is calculated at 31%. Conclusion: Large sized, moderate, predominantly reversible perfusion defect in the inferior LV wall. Gated imaging demonstrates moderate reduction in global LV systolic function. LVEF is calculated at 31%. Electronically signed by : Lauryn Andersen MD 06/30/2025 21:03:25
[2025-06-29 15:29] VITALS: BP 134/84; PULSE 90; RESP 16
[2025-06-29] MEDS: SODIUM CHLORIDE 0.9% 10ML SYR (RAD ONLY) 10 ML IV ×2 (15:39)
[2025-06-29] MEDS: ISOTOPE MYOVIEW (PER STUDY) 1 DOSE IV (15:39)
== END 2025-06-29 23:59 | disposition home or self-care (01) ==
LOC: RAD 12:55
PROVIDERS: PCP Family Medicine; Visit Provider Nurse Practitioner
DX: I49.3 Ventricular premature depolarization (principal); I25.10 Atherosclerotic heart disease of native coronary artery without angina pectoris; I11.0 Hypertensive heart disease with heart failure; I50.9 Heart failure, unspecified; R94.39 Abnormal result of other cardiovascular function study
CPT/HCPCS: 78452; 93017; 93018; A9502; J2785